=== PATIENT | female | born 1945 | race African-American/Black ===

== ENCOUNTER 2018-05-04 16:25 | Inpatient (IN) | payer OTHER ==
--- NOTE | 2018-05-04 16:50 | PDOC ---
History of Present Illness - General Stated Complaint: TWITCHING - History of Present Illness Initial Comments: 05/04/18 17:05 The patient is a 72 year old female with a history of MS and CVA with left sided residual deficits who presents for evaluation of twitching. The patient is accompanied by her family who assist in providing the history. They report a 1-2 day history of right body twitching prompting the patient's presentation to the ED for further evaluation. They note that the patient has been alert and interactive all throughout the twitching, but it has been persistent and the patient has not had similar symptoms in the past. The patient otherwise denies fevers, chills, SOB, chest pain, nausea, vomiting, abdominal pain, numbness, tingling, new weakness, or changes with urination or bowel movements. Past History - Past Medical History Allergies/Adverse Reactions: Allergies Allergy/AdvReac Type Severity Reaction Status Date / Time No Known Allergies Allergy Verified 05/04/18 16:40 Home Medications: Ambulatory Orders Amoxicillin/Potassium Clav [Augmentin 875-125 Tablet] 1 each PO Q12H #8 tablet 06/27/15 Bisacodyl [Dulcolax] 10 mg RC DAILY PRN #20 supp.rect 06/27/15 Miscellaneous Medical Supply [Outpatient Order] 1 each ASDIR #1 misc Na Phos,M-B/Na Phos,Di-Ba [Fleet Enema] 118 ml RC Q2D PRN #10 enema 06/27/15 Sennosides/Docusate Sodium [Cvs Senna Plus Tablet] 1 each PO BID #30 tablet 09/07 CVA: Yes COPD: No Other medical history: MULTIPLE SCLEROSIS - Suicide/Smoking/Psychosocial Hx Smoking History: Unknown if ever smoked Hx Alcohol Use: No Drug/Substance Use Hx: No Review of Systems - Review of Systems Comments:: 05/04/18 17:10 Constitutional: Twitching. No fevers, chills, fatigue, malaise HEENT: No Rhinorrhea, nasal congestion, visual changes Cardiovascular: No chest pain, syncope, palpitations, lightheadedness Respiratory: No Cough, SOB, Hemoptysis, Gastrointestinal: No Abdominal pain, Nausea, Vomiting, Constipation, Diarrhea, Melena Genitourinary: No Dysuria, Frequency, Urgency, Hesitancy, Hematuria, Flank pain Musculoskeletal: No Myalgia, arthralgia Skin: No rashes, itching, bruising, pallor Neurologic: No Headache, Dizziness, Numbness, Weakness, or Tingling Psychiatric: No Hallucinations. No SI or HI *Physical Exam - Vital Signs Last Vital Signs Temp Pulse Resp BP Pulse Ox 98.5 F 83 18 130/87 96 05/04/18 16:38 05/04/18 16:38 05/04/18 16:38 05/04/18 16:38 05/04/18 16:38 - Physical Exam Comments: 05/04/18 17:10 General Appearance: Nourished. Diffuse muscular spasms noted worse on the right side. No Apparent Distress HEENT: EOMI, ROYA. No Pharyngeal Erythema, Tonsillar Exudate, Tonsillar Erythema Neck: No Cervical Lymphadenopathy Respiratory/Chest: Lungs Clear, Normal Breath Sounds. No Crackles, Rales, Rhonchi, Wheezing Cardiovascular: Regular Rhythm, Regular Rate. No Murmur, Gallops, Rubs Gastrointestinal/Abdominal: Normal Bowel Sounds, Soft. No Guarding, Rebound, Tenderness Musculoskeletal: No CVA Tenderness Extremity: Normal Capillary Refill Integumentary: Normal Color, Dry, Warm Neurologic: Fully Oriented, Alert, Normal Mood/Affect, Normal Response, Left sided contractions noted. No movement to the left side (baseline) ED Treatment Course - LABORATORY CBC & Chemistry Diagram: 05/04/18 17:10 05/04/18 17:10 Medical Decision Making - Medical Decision Making 05/04/18 17:11 The patient is a 72 year old female with a history of MS and CVA with left sided residual deficits who presents for evaluation of twitching. Differential includes but is not limited to: Neurologic, MS, Infectious, Metabolic Derangement. Given the patient's history and physical exam, we will obtain a cbc, cmp, ua, urine culture, chest plain film to evaluate further. We will continue to monitor and reassess while here in the ED. 05/04/18 21:03 CBC, cmp are unremarkable. UA demonstrates positive leuk esterase with elevated wbc to 2000s consistent with a UTI. Chest plain film is unremarkable. The patient's symptoms and altered behavior is likely due to urinary tract infection. We will treat the patient with ceftriaxone. The patient has no primary care provider or neurologist as they have both recently and has no reliable follow up. We believe she requires inpatient treatment at this time. *DC/Admit/Observation/Transfer Diagnosis at time of Disposition: UTI (urinary tract infection) Qualifiers: Urinary tract infection type: site unspecified Hematuria presence: without hematuria Qualified Code(s): N39.0 - Urinary tract infection, site not specified - Discharge Dispostion Condition at time of disposition: Stable Decision to Admit order: Yes - Referrals - Patient Instructions - Post Discharge Activity
--- NOTE | 2018-05-04 16:55 | PDOC ---
Attending Attestation - Resident Resident Name: Franky Graf - ED Attending Attestation I have performed the following: I have examined & evaluated the patient, The case was reviewed & discussed with the resident, I agree w/resident's findings & plan, Exceptions are as noted - HPI HPI: 05/04/18 16:52 72y F hx of MS, CVA with residual L sided weakness, presenst with increased twitching/spasm on the R side of her body over the past day. No headache, LOC/ postictal period. Denies fever/chills, pain, dysuria, cough, abd pain, cp, tingling/weakness, vision changes. Pt is incontinent at baseline. Daughter notes the pt sometimes has spasms, but never this bad. exam: Ext: contracted LUE, intermitetent spasms of RUE and R foot, sensation intact card: rrr pulm cta b/l general: no acute distress will obtain blood work to ro metabolic derangement ua t or/o UTI rashel lobtain ct head ?ms flare? will dw neuro - Physicial Exam PE: 05/09/18 17:37 see above - Medical Decision Making pt signed out to evening team to reeal and dispo pending neuro eval/consult
[2018-05-04 17:16] LABS: BASO % 0.6 % (0-2.0); EOS % 0.9 % (0-4.5); HEMATOCRIT 36.9 % (32.4-45.2); HEMOGLOBIN 12.2 GM/dL (10.7-15.3); LYMPH % 20.1 % (8-40); MCH 27.2 pg (25.7-33.7); MEAN CELL VOLUME 82.6 fl (80-96); MEAN PLT VOLUME 7.8 fl (7.5-11.1); MONO % 11.6 % (3.8-10.2); NEUT % 66.8 % (42.8-82.8); PLATELET COUNT 359 K/MM3 (134-434); RBC 4.47 M/mm3 (3.60-5.2); RDW 15.3 % (11.6-15.6); WHITE BLOOD COUNT 6.9 K/mm3 (4.0-10.0)
[2018-05-04 17:45] LABS: ALBUMIN 3.1 g/dl (3.4-5.0); ALK PHOS 80 U/L (45-117); ANION GAP 11 MMOL/L (8-16); BILIRUBIN,TOTAL 0.4 mg/dL (0.2-1); BLOOD UREA NITROGEN 27 mg/dL (7-18); CALCIUM 9.3 mg/dL (8.5-10.1); CHLORIDE 109 mmol/L (98-107); CO2 24 mmol/L (21-32); GLUCOSE,RANDOM 94 mg/dL (74-106); POTASSIUM 3.9 mmol/L (3.5-5.1); SGOT/AST 25 U/L (15-37); SGPT/ALT 16 U/L (13-61); SODIUM 144 mmol/L (136-145); TOT PROT 8.2 g/dl (6.4-8.2)
[2018-05-04 20:07] LABS: URINE APPEARANCE TURBID; URINE BILIRUBIN NEGATIVE (<2.0 mg/dL); URINE COLOR YELLOW; URINE GLUCOSE (UA) NEGATIVE (NEGATIVE); URINE KETONE TRACE (NEGATIVE); URINE LEUK ESTERASE 3+ (NEGATIVE); URINE NITRITE NEGATIVE (NEGATIVE); URINE PROTEIN 2+ (NEGATIVE); URINE UROBILINOGEN NEGATIVE mg/dL (0.2-1.0)
[2018-05-04 20:20] LABS: EPI CELLS FEW /HPF (FEW); URINE BACTERIA RARE /hpf (NONE SEEN); URINE HYALINE CAST 19 /lpf
[2018-05-04] MEDS ORDERED: CEFTRIAXONE 1 GM in DEXTROSE 5%-WATER - 100 ML IVPB ONE (20:30)
--- NOTE | 2018-05-04 21:28 | PN ---
Teaching Attending Note Name of Resident: Dre Hayes ATTENDING PHYSICIAN STATEMENT I saw and evaluated the patient. I reviewed the resident's note and discussed the case with the resident. I agree with the resident's findings and plan as documented. 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 Family reports a 1-2 day history of right body twitching. They note that the patient has been alert and interactive all throughout the twitching, but it has been persistent and the patient has not had similar symptoms in the past. The patient otherwise denies fevers, chills, SOB, chest pain, nausea, vomiting, abdominal pain, numbness, tingling, new weakness, or changes with urination or bowel movements. OBJECTIVE: Alert Vital Signs Period Temp Pulse Resp BP Sys/Varner Pulse Ox Last 24 Hr 98.5 F 83 18 130/87 96 HEENT: No Jaundice, eye redness or discharge, PERRLA, EOMI. Normocephalic, atraumatic. External ears are normal and hearing is grossly intact. No nasal discharge. Neck: Supple, nontender. No palpable adenopathy or thyromegaly. No JVD Chest: Good effort. Clear to auscultation and percussion. Heart: Regular. No S3, rub or murmur Abdomen: Not distended, soft, nontender and no HSM. No rebound or guarding. Normoactive bowel sounds. Ext: Peripheral pulses intact. No leg edema. Skin: Warm and dry. No petechiae, rash or ecchymosis. Neuro: Alert. Oriented x3. CN 2-12 grossly intact. Sensation grossly intact in all four extremities; right side twitching; left hemiparesis, contracted LUE. Home Medications Medication Instructions Recorded Amoxicillin/Potassium Clav 1 each PO Q12H #8 tablet 06/27/15 [Augmentin 875-125 Tablet] Bisacodyl [Dulcolax] 10 mg RC DAILY PRN #20 supp.rect 06/27/15 Miscellaneous Medical Supply 1 each ASDIR #1 misc 06/27/15 [Outpatient Order] Na Phos,M-B/Na Phos,Di-Ba [Fleet 118 ml RC Q2D PRN #10 enema 06/27/15 Enema] Sennosides/Docusate Sodium [Cvs 1 each PO BID #30 tablet 06/27/15 Senna Plus Tablet] Abnormal Lab Results 05/04/18 05/04/18 05/04/18 17:10 17:10 19:58 Monocytes % 11.6 H Chloride 109 H BUN 27 H Albumin 3.1 L Urine Protein 2+ H Urine Ketones Trace H Urine Blood 2+ H Ur Leukocyte Esterase 3+ H ASSESSMENT AND PLAN: 1. UTI/Toxic encephalopathy/Twitching - Right side twitching may signal MS flare up, effect of her old CVA, UTI or be due to electrolyte abnormality. Head CT does not show any acute pathology. Check phosphate and Mg levels. Will continue UTI treatment with Rocephin 1 gm daily. Consult neurology to advice on whether to initiate MS treatment or use agents such as clonazepam/baclofen to control twitching. 2. DVT prophylaxis - Lovenox 40 mg SQ q 24 hours. 3. Advance directives - Full code
[2018-05-04] MEDS ORDERED: CEFTRIAXONE 1 GM/50 ML BAG ONE (21:54)
--- NOTE | 2018-05-04 22:50 | HP ---
CHIEF COMPLAINT: Right side body twitching-involuntary PCP: None HISTORY OF PRESENT ILLNESS: Pt is a pleasant 72 y/o f with a significant past medical history of multiple sclerosis (diagnosed at 20 years of age), CVA (2013), R kidney nephrectomy who presented to [facility] ED this afternoon via ambulance due to involuntary jerking movements of her right arm and leg. Pt and daughter endorse that this has been occurring since this past and do not endorse any precipitating factors. Daughter states that pt has never had these jerking movements before. Pt normally uses a wheelchair to ambulate and has residual left sided weakness from her CVA in 2013. Furthermore, pt endorses she is incontinent of urine and uses an adult diaper. Denies chest pain, shortness of breath, lightheadedness, fever, chills, or LOC. Daughter endorses that her mother's urine has been recently cloudy in appearance. Pt denies dysuria or frequency. ER course was notable for: (1) Leuk Esterase 3+ (2) 1 gm ceftriaxone given (3) Urine/Blood Cultures pending. Recent Travel: denies PAST MEDICAL HISTORY: Multiple Sclerosis, CVA, R Nephrectomy PAST SURGICAL HISTORY: Hysterectomy, R Nephrectomy Social History: Smoking: denies Alcohol: Denies Drugs: Denies Family History: Allergies none No Known Allergies Allergy (Verified 05/04/18 16:40) HOME MEDICATIONS: Pt's daughter denies that pt takes any medications. REVIEW OF SYSTEMS CONSTITUTIONAL: Absent: fever, chills, diaphoresis, generalized weakness, malaise, loss of appetite, weight change HEENT: Absent: rhinorrhea, nasal congestion, throat pain, throat swelling, difficulty swallowing, mouth swelling, ear pain, eye pain, visual changes CARDIOVASCULAR: Absent: chest pain, syncope, palpitations, irregular heart rate, lightheadedness , peripheral edema RESPIRATORY: Absent: cough, shortness of breath, dyspnea with exertion, orthopnea, wheezing, stridor, hemoptysis GASTROINTESTINAL: Absent: abdominal pain, abdominal distension, nausea, vomiting, diarrhea, constipation, melena, hematochezia GENITOURINARY: Absent: dysuria, frequency, urgency, hesitancy, hematuria, flank pain, genital pain MUSCULOSKELETAL: Absent: myalgia, arthralgia, joint swelling, back pain, neck pain SKIN: Absent: rash, itching, pallor HEMATOLOGIC/IMMUNOLOGIC: Absent: easy bleeding, easy bruising, lymphadenopathy, frequent infections ENDOCRINE: Absent: unexplained weight gain, unexplained weight loss, heat intolerance, cold intolerance NEUROLOGIC: PRESENT: focal weakness, unsteady gait, bladder PSYCHIATRIC: Absent: anxiety, depression, suicidal or homicidal ideation, hallucinations. PHYSICAL EXAMINATION Vital Signs - 24 hr 05/04/18 16:38 Temperature 98.5 F Pulse Rate 83 Respiratory 18 Rate Blood Pressure 130/87 O2 Sat by Pulse 96 Oximetry (%) GENERAL: Awake Alert NAD, pleasant HEAD: NC/AT EYES:Pinpoint pupils NOT reactive to light or accommodation. EARS, NOSE, THROAT: Missing teeth, MMM LUNGS: Decreased Breath Sounds HEART: Distant heart sounds ABDOMEN: NDNT No HSM . UPPER EXTREMITIES: Left arm contracture, jerky movements right arm. LOWER EXTREMITIES: Right leg jerky movements, lower extremities muscle atrophy, cant lift R leg off of bed-strength 1/5 b/l lower extremities. Possible Babinski on left foot? NEUROLOGICAL: Decreased vision, h/o MS, sensation intact throughout, able to squeeze hand with her right hand, left hand unable. PSYCHIATRIC: Cooperative. Good eye contact. Appropriate mood and affect. SKIN: Warm, dry, normal turgor, no rashes or lesions noted, normal capillary refill. Laboratory Results - last 24 hr 05/04/18 05/04/18 05/04/18 17:10 17:10 19:58 WBC 6.9 RBC 4.47 Hgb 12.2 Hct 36.9 D MCV 82.6 MCH 27.2 MCHC 33.0 RDW 15.3 Plt Count 359 D MPV 7.8 Absolute Neuts (auto) 4.6 Neutrophils % 66.8 Lymphocytes % 20.1 D Monocytes % 11.6 H Eosinophils % 0.9 Basophils % 0.6 D Nucleated RBC % 0 Sodium 144 Potassium 3.9 Chloride 109 H Carbon Dioxide 24 Anion Gap 11 BUN 27 H Creatinine 1.0 Creat Clearance w eGFR 54.81 Random Glucose 94 Lactic Acid Calcium 9.3 Total Bilirubin 0.4 AST 25 ALT 16 Alkaline Phosphatase 80 Total Protein 8.2 Albumin 3.1 L Urine Color Yellow Urine Appearance Turbid Urine pH 5.0 Ur Specific [place] 1.019 Urine Protein 2+ H Urine Glucose (UA) Negative Urine Ketones Trace H Urine Blood 2+ H Urine Nitrite Negative Urine Bilirubin Negative Urine Urobilinogen Negative Ur Leukocyte Esterase 3+ H Urine WBC (Auto) 2170 Urine RBC (Auto) 78 Ur Epithelial Cells Few Urine Bacteria Rare Hyaline Casts 19 05/04/18 21:38 WBC RBC Hgb Hct MCV MCH MCHC RDW Plt Count MPV Absolute Neuts (auto) Neutrophils % Lymphocytes % Monocytes % Eosinophils % Basophils % Nucleated RBC % Sodium Potassium Chloride Carbon Dioxide Anion Gap BUN Creatinine Creat Clearance w eGFR Random Glucose Lactic Acid 1.2 Calcium Total Bilirubin AST ALT Alkaline Phosphatase Total Protein Albumin Urine Color Urine Appearance Urine pH Ur Specific [place] Urine Protein Urine Glucose (UA) Urine Ketones Urine Blood Urine Nitrite Urine Bilirubin Urine Urobilinogen Ur Leukocyte Esterase Urine WBC (Auto) Urine RBC (Auto) Ur Epithelial Cells Urine Bacteria Hyaline Casts ASSESSMENT/PLAN: Pt is a pleasant 72 y/o f with a significant past medical history of multiple sclerosis (diagnosed at 20 years of age), CVA (2013), R kidney nephrectomy who presented to [facility] ED this afternoon via ambulance due to involuntary jerking movements of her right arm and leg. # Right side body twitching 2/2 Multiple Sclerosis flare up? -Neurology consulted -Consider Klonopin or tegretol for myoclonus -Head CT--> pending results -Consider MRI Pablo for further assessment # UTI -Leukocyte Esterase 3+ - Urine WBC 2170 - 1 gm Ceftriaxone in ED -Continue Ceftriaxone #FEN D5 1/2 NS@42cc/hr Monitor electrolytes NPO #DVT ppx: Heparin SQ TID #Dispo: OBS Visit type - Emergency Visit Emergency Visit: Yes ED Registration Date: 05/04/18 Care time: The patient presented to the Emergency Department on the above date and was hospitalized for further evaluation of their emergent condition. - New Patient This patient is new to me today: Yes Date on this admission: 05/05/18 - Critical Care Critical Care patient: No
[2018-05-05] MEDS: DEXTROSE 5%-0.45% SALINE 1,000 ML IV SCH (02:07)
[2018-05-05] MEDS: HEPARIN NA (PORCINE) 5,000 UNITS/ML 1ML VIAL SQ SCH ×3 (05:57→21:15)
[2018-05-05 07:13] LABS: HEMATOCRIT 36.8 % (32.4-45.2); HEMOGLOBIN 11.8 GM/dL (10.7-15.3); MCH 26.6 pg (25.7-33.7); MCHC 32.1 g/dl (32.0-36.0); MEAN CELL VOLUME 82.6 fl (80-96); MEAN PLT VOLUME 7.8 fl (7.5-11.1); PLATELET COUNT 311 K/MM3 (134-434); RBC 4.45 M/mm3 (3.60-5.2); RDW 15.1 % (11.6-15.6); WHITE BLOOD COUNT 6.5 K/mm3 (4.0-10.0)
[2018-05-05 07:28] LABS: INR 1.03 (0.83-1.09); PROTHROMBIN TIME (PATIENT) 12.1 SEC (9.7-13.0)
[2018-05-05 07:31] LABS: ACTIVATED PTT 29.5 SECONDS (25.2-36.5)
[2018-05-05 07:41] LABS: ANION GAP 8 MMOL/L (8-16); BLOOD UREA NITROGEN 27 mg/dL (7-18); CALCIUM 9.3 mg/dL (8.5-10.1); CHLORIDE 108 mmol/L (98-107); CO2 27 mmol/L (21-32); GLUCOSE,RANDOM 109 mg/dL (74-106); MAGNESIUM 2.2 mg/dL (1.8-2.4); PHOSPHOROUS 3.5 mg/dL (2.5-4.9); POTASSIUM 3.9 mmol/L (3.5-5.1); SODIUM 142 mmol/L (136-145)
--- NOTE | 2018-05-05 11:11 | PN ---
Progress Note (short form) - Note Progress Note: Subjective: patient is doing well she stated that she came her because of her increased involuntary movements Obejective: cachectic temporal wasting laying in bed s1 and S2 rrr dry mucosa dry skin lungs CTA abdomen soft non-tender no edema involuntary movements of the ext ASSESSMENT/PLAN: Pt is a pleasant 72 y/o f with a significant past medical history of multiple sclerosis (diagnosed at 20 years of age), CVA (2013), R kidney nephrectomy who presented to [facility] ED this afternoon via ambulance due to involuntary jerking movements of her right arm and leg. # Right side body twitching 2/2 Multiple Sclerosis flare up? -Neurology consulted - clonazepam or tegretol for myoclonus -Consider MRI Pablo for further assessment # UTI -Leukocyte Esterase 3+ - Urine WBC 2170 -Continue Ceftriaxone #FEN D5 1/2 NS@42cc/hr Monitor electrolytes NPO #DVT ppx: Heparin SQ TID #Dispo: OBS
--- NOTE | 2018-05-05 15:22 | CON.NEURO ---
Consult Consult Specialty:: [place] Referred by:: Resident Reason for Consultation:: Twitching - History of Present Illness History of Present Illness: 72 years old woman with PMH CDA OA MS CVA Left hemiparesis with contracture presented with right arm and leg twitching I saw domenico patient on the floor When I waled to eth room with the rN patent had a gaze deviation with no response to verbal stimuli Stopped abruptly and patients stated twitching allover No recent fall [facility] teher is no family hsitory of sz patient was not on benzo or AED Patient is not on immunmodulator for MS Patient came [place] nd started answering questions - History Source History Provided By: Family Member, Medical Record Limitations to Obtaining History: Clinical Condition - Past Medical History NOTE TELLER: Yes: CVA, Multiple Sclerosis - Past Surgical History Past Surgical History: Yes: Nephrectomy (right) - Alcohol/Substance Use Hx Alcohol Use: No History of Substance Use: reports: None - Smoking History Smoking history: Unknown if ever smoked Have you smoked in the past 12 months: No - Social History ADL: Family Assistance Home Medications - Allergies Allergies/Adverse Reactions: Allergies Allergy/AdvReac Type Severity Reaction Status Date / Time No Known Allergies Allergy Verified 05/04/18 16:40 - Home Medications Home Medications: Ambulatory Orders Amoxicillin/Potassium Clav [Augmentin 875-125 Tablet] 1 each PO Q12H #8 tablet 06/27/15 Bisacodyl [Dulcolax] 10 mg RC DAILY PRN #20 supp.rect 06/27/15 Miscellaneous Medical Supply [Outpatient Order] 1 each ASDIR #1 misc Na Phos,M-B/Na Phos,Di-Ba [Fleet Enema] 118 ml RC Q2D PRN #10 enema 06/27/15 Sennosides/Docusate Sodium [Cvs Senna Plus Tablet] 1 each PO BID #30 tablet 09/07 Family Disease History - Family Disease History Family History: Unable to Obtain Review of Systems - Review of Systems Constitutional: reports: No Symptoms Eyes: reports: No Symptoms Neurological: reports: Incoordination, Numbness, Parasthesia Physical Exam-Neuro Vital Signs: Vital Signs Temperature 98.4 F 05/05/18 14:10 Pulse Rate 77 05/05/18 14:10 Respiratory Rate 20 05/05/18 14:10 Blood Pressure 110/71 05/05/18 14:10 O2 Sat by Pulse Oximetry (%) 95 05/05/18 01:30 Constitutional: Yes: Well Nourished Neck: Yes: WNL Cardiovascular: Yes: WNL Labs: CBC, BMP 05/05/18 06:00 05/05/18 06:00 INR, PTT INR 1.03 (0.83-1.09) 05/05/18 06:00 - Neuro Exam Level Of Consciousness: Yes: Oriented to Person, Oriented to Place Eyes: Yes: PERRLA Speech: WNL Dominant Hand: Right Cranial Nerves II-XII Intact: Yes Gag: Present DTR's: 1+ Left Bicep, 1+ Right Bicep, 3+ Left Brachioradialis, 3+ Right Brachioradialis Response to light touch: Abnormal Response to pain prick: Abnormal Response to temperature: Abnormal Motor Strength: 0/5: Left Arm, Left Leg, 3/5: Right Arm, Right Leg Gait: Deferred Imaging - Results Cat Scan: Image Reviewed Problem List - Problems (1) Twitching Assessment/Plan: patient has two abnormal movement The one with right side arm and leg and gaze deviated are focal complex seizure The whole body shaking are myoclonus and not seizure Neurological DDx 1. Complex Partial Seizure 2. Myoclonus 3. Multiple sclerosis 4. Stroke Plan: 1. Neuro checks q1 2. Transfer to MICU for observation 3. MRI of the brain with and without Jay 4. EEG 5. Stat prolactin level 6. Klonopin for the myoclonus 0.25 mg q12 7. sz precautions 8. Ativan IVP prn sz focal Thanks case discussed with Abby daughter and the RN on the floor Code(s): R25.3 - FASCICULATION
[2018-05-05] MEDS ORDERED: LORazepam 2 MG/ML SDV VIAL IVPB ONE (18:35)
[2018-05-05] MEDS ORDERED: clonazePAM 0.5 MG TABLET PO PRN (18:48)
--- NOTE | 2018-05-05 18:51 | EKG ---
Test Reason : Blood Pressure : / mmHG Vent. Rate : 079 BPM Atrial Rate : 079 BPM P-R Int : 128 ms QRS Dur : 082 ms QT Int : 382 ms P-R-T Axes : 062 269 056 degrees QTc Int : 438 ms NORMAL SINUS RHYTHM RIGHT VENTRICULAR HYPERTROPHY ABNORMAL ECG WHEN COMPARED WITH ECG OF 22-JUN-2015 20:42, VENT. RATE HAS DECREASED Confirmed by RICKY CRAIG MD ([id number]) on 05/05/2018 6:50:55 PM Referred By: Confirmed By:RICKY CRAIG MD
--- NOTE | 2018-05-05 22:55 | HOSP ---
Subjective - Review of Symptoms Events since last encounter: Per Nurse patient had seizure like activity with Neurologist Dr. Hough present. He wants patient to be transferred to ICU for further monitoring. No ICU beds available, nurse discussed with nursing line supervisor that the patient could be moved to tele. Order placed for patient to be transfered to tele. Physical Examination Vital Signs: Vital Signs Temperature 99.4 F 05/05/18 20:01 Pulse Rate 97 H 05/05/18 20:01 Respiratory Rate 20 05/05/18 22:21 Blood Pressure 120/51 L 05/05/18 20:01 O2 Sat by Pulse Oximetry (%) 96 05/05/18 22:21 Labs: CBC, BMP 05/05/18 06:00 05/05/18 06:00 Visit type - Emergency Visit Emergency Visit: No - New Patient This patient is new to me today: Yes Date on this admission: 05/06/18 - Critical Care Critical Care patient: No
--- NOTE | 2018-05-06 00:16 | PN ---
Progress Note (short form) - Note Progress Note: Called to evaluate patient for ICU admission Briefly, patient is a 72 year old female with a PMHx of MS (Dx at age 20), CVA, Right nephrectomy who was BIBEMS due to involuntary jerking movements of the right UE. Patient was found to have UTI and possible MS flare up. However, patient is currently on no Benzo's, AED's, or immunomodulators for MS. This evening, around 1800, patient had increased right arm and leg body twitching and no response to verbal stimuli. Patient abruptly stopped and started having full body twitching. Patient was given 1mg of Ativan. Neurologist, Dr. Hough , witnessed this and reports likely had focal complex seizure and myoclonus. Dr. Hough recommended neuro checks Q1H and possible transfer to ICU I went to evaluate patient around 2300 and patient was resting comfortably in bed, saturating 95-95% on room air. Patient responded to verbal and painful stimuli. RN reports that patient had no further episodes of seizures since the first one. PHYSICAL EXAM: GENERAL: Frail, cachectic, Sleeping, in no acute distress. Responds to painful and verbal stimuli HEAD: Temporal wasting EYES: Pinpoint pupils LUNGS: Decreased Breath Sounds HEART: RRR, normal S1 and S2 ABDOMEN: Soft, nontender, nondistended, normoactive bowel sounds LOWER EXTREMITIES: No peripheral edema. (-) twitching NEUROLOGICAL: Patient responds to painful and verbal stimuli. Opens eyes when asked. Sensory intact, squeezes fingers when asked. SKIN: Warm, dry, normal turgor, no rashes or lesions noted, normal capillary refill. VITALS: BP: 120/60 HR: 95BPM TEMP: 99.4 RR: 96% RA RECOMMENDATIONS: Does not meet criteria for ICU admission as patient is not actively seizing and has had only one seizure episode. Patient was responding to verbal and painful stimuli. She was saturating well on room air and in no acute distress. Spoke to Neurologist and discussed the case. He would like some monitoring and requested for patient to go to Tele. I informed the composition instructor floor residents. Patient will be transferred to tele for frequent neurochecks and 02/cardiac monitoring, as per primary team and neurologist. If patient goes into status epilepticus or continues to have seizures, she may be transferred to ICU Continue Ativan PRN Continue Klonopin, as per neurologist Will need EEG and MRI Continue seizure precautions and Neurochecks in telemetry Carmen Torres [id number]
[2018-05-06] MEDS: DEXTROSE 5%-0.45% SALINE 1,000 ML IV SCH ×2 (00:30→16:44)
[2018-05-06] MEDS: HEPARIN NA (PORCINE) 5,000 UNITS/ML 1ML VIAL SQ SCH ×3 (06:14→22:33)
[2018-05-06 08:27] LABS: BASO % 0.5 % (0-2.0); EOS % 1.6 % (0-4.5); HEMOGLOBIN 11.1 GM/dL (10.7-15.3); LYMPH % 31.6 % (8-40); MCH 25.9 pg (25.7-33.7); MCHC 30.9 g/dl (32.0-36.0); MEAN PLT VOLUME 7.9 fl (7.5-11.1); MONO % 14.8 % (3.8-10.2); NEUT % 51.5 % (42.8-82.8); PLATELET COUNT 287 K/MM3 (134-434); RBC 4.28 M/mm3 (3.60-5.2); RDW 15.5 % (11.6-15.6); WHITE BLOOD COUNT 4.9 K/mm3 (4.0-10.0)
[2018-05-06] MEDS ORDERED: LORazepam 2 MG/ML SDV VIAL IVPUSH ONE (08:45)
[2018-05-06 09:19] LABS: ALBUMIN 2.6 g/dl (3.4-5.0); ALK PHOS 69 U/L (45-117); ANION GAP 8 MMOL/L (8-16); BILIRUBIN,TOTAL 0.3 mg/dL (0.2-1); BLOOD UREA NITROGEN 24 mg/dL (7-18); CALCIUM 8.6 mg/dL (8.5-10.1); CHLORIDE 114 mmol/L (98-107); CO2 24 mmol/L (21-32); CREATININE 0.9 mg/dL (0.55-1.3); GLUCOSE,RANDOM 109 mg/dL (74-106); POTASSIUM 3.7 mmol/L (3.5-5.1); SGOT/AST 26 U/L (15-37); SGPT/ALT 15 U/L (13-61); SODIUM 146 mmol/L (136-145); TOT PROT 7.1 g/dl (6.4-8.2)
[2018-05-06] MEDS ORDERED: DEXTROSE 5%-WATER - 50 ML IVPB ONE (09:23)
[2018-05-06] MEDS ORDERED: cefTRIAXone SODIUM 1 GM VIAL ONE (09:23)
[2018-05-06] MEDS: CEFTRIAXONE 1 GM in DEXTROSE 5%-WATER - 50 ML IVPB SCH (09:28)
--- NOTE | 2018-05-06 09:32 | PN ---
Physical Exam: SUBJECTIVE: Patient seen and examined at bedside. Resting in bed,. Had episode of seizure like activity yesterday evening. Seen by neurology. Pt to be transferred to tele. OBJECTIVE: Vital Signs Period Temp Pulse Resp BP Sys/Varner Pulse Ox Last 24 Hr 97.8 F-99.4 F 65-97 20-20 105-128/51-71 96 GENERAL: Resting in bed, arousable to verbal stimuli. HEAD: Temporal wasting, cachexia EYES: pupils not reactive to light. Impaired vision ENT: missing teeth LUNGS: CTA B/l HEART: Distant heart sounds ABDOMEN: NTND No HSM EXTREMITIES: Left arm contracture, muscle atrophy all 4 extremities. NEUROLOGICAL: Responds to physical and verbal stimuli. Sensation intact throughout. Strength decreased PSYCH: Normal mood, normal affect. SKIN: Warm, dry, normal turgor, no rashes or lesions noted Laboratory Results - last 24 hr 05/05/18 05/05/18 05/06/18 19:00 19:00 07:45 WBC 4.9 RBC 4.28 Hgb 11.1 Hct 36.0 MCV 84.0 MCH 25.9 MCHC 30.9 L RDW 15.5 Plt Count 287 MPV 7.9 Absolute Neuts (auto) 2.5 Neutrophils % 51.5 D Lymphocytes % 31.6 D Monocytes % 14.8 H Eosinophils % 1.6 Basophils % 0.5 Nucleated RBC % 0 Sodium Potassium Chloride Carbon Dioxide Anion Gap BUN Creatinine Creat Clearance w eGFR Random Glucose Calcium Total Bilirubin GGT 25 AST ALT Alkaline Phosphatase Ammonia 16.00 C-Reactive Protein 1.3 H Total Protein Albumin Vitamin B12 1776 H 05/06/18 07:45 WBC RBC Hgb Hct MCV MCH MCHC RDW Plt Count MPV Absolute Neuts (auto) Neutrophils % Lymphocytes % Monocytes % Eosinophils % Basophils % Nucleated RBC % Sodium 146 H Potassium 3.7 Chloride 114 H Carbon Dioxide 24 Anion Gap 8 BUN 24 H Creatinine 0.9 Creat Clearance w eGFR > 60 Random Glucose 109 H Calcium 8.6 Total Bilirubin 0.3 GGT AST 26 ALT 15 Alkaline Phosphatase 69 Ammonia C-Reactive Protein Total Protein 7.1 Albumin 2.6 L Vitamin B12 Active Medications Generic Name Dose Route Start Last Admin Trade Name Freq PRN Reason Stop Dose Admin Clonazepam 0.25 mg 05/05/18 18:48 Klonopin - PO BID PRN MUSCLE SPASMS Heparin Sodium (Porcine) 5,000 unit 11/11/18 06:00 05/06/18 06:14 Heparin - SQ 5,000 unit TID KRYSTEN Administration Dextrose/Sodium Chloride 1,000 mls @ 42 mls/hr 05/05/18 01:45 05/06/18 00:30 D5-1/2ns - IV 42 mls/hr ASDIR KRYSTEN Administration Ceftriaxone Sodium 1 gm/ 50 mls @ 100 mls/hr 05/06/18 10:00 05/06/18 09:28 Dextrose IVPB 100 mls/hr DAILY KRYSTEN Administration Protocol CT/HEAD CT WITHOUT CONTRAST CT scan of the brain c-. Twitching r/o intracranial process Findings. Serial axial images of the brain were obtained from foramen magnum to the cranial vertex without intravenous contrast. The study was supplemented with computer-generated coronal and sagittal reconstruction images. The head was tilted during the acquisition of images There is no evidence of acute subarachnoid hemorrhage, acute intra-axial or extra-axial fluid collection consistent with subdural or epidural hematoma. No mass effect, midline shift, acute territorial ischemic changes, herniation or edema is present. Normal suarez matter white matter differentiation. Loss of volume of the brain parenchyma with involutional changes is noted. Moderate diffuse supratentorial white matter microangiopathic ischemic changes, gliosis. MRI is most sensitive for evaluation of acute stroke. Examination of the bone windows show no fracture. The visualized paranasal sinuses and mastoid air cells are clear. Symmetrical ocular globes. Unremarkable retro-orbital soft tissues. Impression. No evidence of acute intracranial hemorrhage, edema, midline shift, mass effect, or skull fracture. No CT evidence of acute territorial ischemic changes. Moderate diffuse supratentorial chronic white matter microangiopathic ischemic changes, gliosis. Reported By: Kem Schroeder MD 05/06/18 [id number] ASSESSMENT/PLAN: Pt is a pleasant 72 y/o f with a significant past medical history of multiple sclerosis (diagnosed at 20 years of age), CVA (2013), R kidney nephrectomy who presented to [facility] ED this afternoon via ambulance due to involuntary jerking movements of her right arm and leg. # Right side body twitching 2/2 Myoclonus and Complex partial seizure -Neurology on board -Klonapin .25 mg po bid -Head CT--> No acute ischemic changes, no evidence of acute intracranial hemorrhage. Moderate diffuse supratentorial chronic white matter microangiopathic ischemic changes, gliosis -MRI Brain with and without ABDIFATAH pending -Neuro checks Q1H -EEG -Prolactin level -Ativan IVP PRN # UTI -Leukocyte Esterase 3+ - Urine WBC 2170 - 1 gm Ceftriaxone in ED -Continue Ceftriaxone #FEN D5 06/26 NS@42cc/hr Monitor electrolytes Puree diet #DVT ppx: Heparin SQ TID #Dispo: Transfer to Tele Visit type - Emergency Visit Emergency Visit: Yes ED Registration Date: 05/04/18 Care time: The patient presented to the Emergency Department on the above date and was hospitalized for further evaluation of their emergent condition. - New Patient This patient is new to me today: No - Critical Care Critical Care patient: No
--- NOTE | 2018-05-06 14:09 | PN ---
Teaching Attending Note Name of Resident: Dre Hayes ATTENDING PHYSICIAN STATEMENT I saw and evaluated the patient. I reviewed the resident's note and discussed the case with the resident. I agree with the resident's findings and plan as documented. SUBJECTIVE:no complaints. denies CP, SOB, fever, chills, N/V/C/D OBJECTIVE: Last Vital Signs Temp Pulse Resp BP Pulse Ox 98.0 F 65 20 113/76 96 05/06/18 13:15 05/06/18 13:15 05/06/18 13:15 05/06/18 13:15 05/05/18 22:21 General lethargic, slow to respond, bitemporal wasting, prominent clavicles HEENT PERRL, EOMI CV S1 S2 RRR no murmur/rub/gallop Lungs CTA B/L no wheezing/rales/rhonchi Abdomen soft NT/ND scaffoid abdomen Extremities no pedal edema. Neuro unable to fully assess as pt does not follow all commands. moves all 4 extremities. answers some questions. no twitching noted, rigidity of LUE ASSESSMENT AND PLAN: 72 y/o F with a significant past medical history of multiple sclerosis ( diagnosed at 20 years of age), CVA (2013), R kidney nephrectomy who presented to [facility] ED this afternoon via ambulance due to involuntary jerking movements of her right arm and leg. 1. RUE/RLE twitching- complex partial seizure with myoclonus. witnessed by neurologist yesterday and ativan given. questionable this AM when patient was woken up she had some twitching of the RUE and ativan was given. pt is noted to be slow to respond, unclear what is patients baseline mental status. pt can be post-ictal as well as due to medication. no known hx of seizure. possible induced from infection. will treat infection. check Brain MRI, EEG, electrolytes , vitamin b12. neuro on board 2. UTI- On ceftriaxone. f/u Cx 3. Severe malnutrition- as evident by body habitus and BMI 15. dietary consult. pt is unable to assess if there is any recent weight loss 4. MS- outpatient neuro follow up 5. R kidney nephrectomy 6. DVT ppx- hep sq 7. will need to obtain collateral information from family and PMD as pt is a poor historian
--- NOTE | 2018-05-06 18:11 | PN ---
Progress Note, Physician History of Present Illness: seen on the floor Less responsive On tele No family garbled speech No more twitching Received Benzo - Current Medication List Current Medications: Active Medications Clonazepam (Klonopin -) 0.25 mg PO BID PRN PRN Reason: MUSCLE SPASMS Heparin Sodium (Porcine) (Heparin -) 5,000 unit SQ TID [facility] Last Admin: 05/06/18 13:38 Dose: 5,000 unit Dextrose/Sodium Chloride (D5-1/2ns -) 1,000 mls @ 42 mls/hr IV ASDIR KRYSTEN Last Admin: 05/06/18 16:44 Dose: 42 mls/hr Ceftriaxone Sodium 1 gm/ (Dextrose) 50 mls @ 100 mls/hr IVPB DAILY [facility]; Protocol Last Admin: 05/06/18 09:28 Dose: 100 mls/hr Levetiracetam (Keppra -) 250 mg PO BID KRYSTEN - Objective Vital Signs: Vital Signs Temperature 98 F 05/06/18 17:04 Pulse Rate 80 05/06/18 17:04 Respiratory Rate 18 05/06/18 17:04 Blood Pressure 106/60 05/06/18 17:04 O2 Sat by Pulse Oximetry (%) 95 05/06/18 14:00 Constitutional: Yes: Well Nourished Eyes: Yes: WNL Neurological: Yes: Alert, Oriented, Babinski positive ...Motor Strength: LUE (0), LLE (0) Labs: CBC, BMP 05/06/18 07:45 05/06/18 07:45 INR, PTT INR 1.03 (0.83-1.09) 05/05/18 06:00 Problem List - Problems (1) Twitching Assessment/Plan: Abnormal EEG Myoclonus 1. Neuro checks 2. Sz precautions 3. Keppra 250 mg po q12 4. Klonopin q12 Code(s): R25.3 - FASCICULATION
[2018-05-06] MEDS: levETIRAcetam 250 MG TABLET (FP) PO SCH (22:33)
[2018-05-07] MEDS: HEPARIN NA (PORCINE) 5,000 UNITS/ML 1ML VIAL SQ SCH ×3 (06:34→21:37)
[2018-05-07] MEDS ORDERED: cefTRIAXone SODIUM 1 GM VIAL ONE (09:22)
[2018-05-07] MEDS ORDERED: DEXTROSE 5%-WATER - 50 ML IVPB ONE (09:22)
[2018-05-07] MEDS: CEFTRIAXONE 1 GM in DEXTROSE 5%-WATER - 50 ML IVPB SCH (10:16)
[2018-05-07] MEDS: levETIRAcetam 250 MG TABLET (FP) PO SCH ×2 (10:16→21:38)
[2018-05-07] MEDS ORDERED: FLUCONAZOLE 150 MG TABLET PO ONE (11:18)
--- NOTE | 2018-05-07 11:18 | PN ---
Teaching Attending Note Name of Resident: Dre Hayes ATTENDING PHYSICIAN STATEMENT I saw and evaluated the patient. I reviewed the resident's note and discussed the case with the resident. I agree with the resident's findings and plan as documented. SUBJECTIVE:asymptomatic. states she feels better today. unsure why she is in the hospital but elicits likely due to something from her MS. states she has not been having any urinary symptoms lately. states she has always been thin and unable to specify recent weight loss. denies Cp, SOB, fever, chills, N/V/C/D , dysuria or urinary frequency. OBJECTIVE: Last Vital Signs Temp Pulse Resp BP Pulse Ox 98 F 76 18 99/66 98 05/07/18 09:00 05/07/18 09:00 05/07/18 09:00 05/07/18 09:00 05/07/18 05:48 General NAD A&O x2 (self and location) CV S1 S2 RRR no murmur/rub/gallop Lungs CTA B/L no wheezing/rales/rhonchi Abdomen soft NT/ND scaffoid abdomen Extremities no pedal edema. Neuro unable to fully assess as pt does not follow all commands. moves all 4 extremities. no twitching noted, rigidity of LUE ASSESSMENT AND PLAN: 72 y/o F with a significant past medical history of multiple sclerosis ( diagnosed at 20 years of age), CVA (2013), R kidney nephrectomy who presented to [facility] ED this afternoon via ambulance due to involuntary jerking movements of her right arm and leg. 1. RUE/RLE twitching- complex partial seizure with myoclonus. seizure like activity noted yesterday given ativan. EEG done and noted to be negative by neurology, started on keppra. no episodes since. Awaiting Brain MRI read. pt is more alert and responsive today. will await further recommendations per neuro. 2. UTI- +fungal infection. will d/c abx and give fluconazole 150mg po x1. 3. Severe malnutrition- as evident by body habitus and BMI 15. dietary consult. 4. CVA with L hemiparesis 5. MS- outpatient neuro follow up 6. R kidney nephrectomy 7. DVT ppx- hep sq 8. possible d/c later today pending neuro eval and MRI reading. Family wants to bring patient home. has aid. will set up for VNS and PT/OT
--- NOTE | 2018-05-07 11:51 | PN ---
Physical Exam: SUBJECTIVE: Patient seen and examined at bedside. Eating breakfast with aid. Denies any pain or shortness of breath. States she feels well. No acute events overnight. OBJECTIVE: Vital Signs Period Temp Pulse Resp BP Sys/Varner Pulse Ox Last 24 Hr 96.3 F-98.5 F 60-88 18-20 93-120/60-85 95-98 GENERAL: NAD Awake Alert Responsive, cachexia, frail HEAD: Temporal wasting EYES: Pinpoint pupils, impaired vision ENT: MMM, missing teeth LUNGS: CTA B/L Anteriorly HEART: RRR No MRG S1S2 ABDOMEN:NDNT No HSM EXTREMITIES: Muscle atrophy, wasting. Left arm contracture NEUROLOGICAL: Left side hemiparesis. strength 1/5 b/l lower extremities. Able to squeeze fingers with right hand. Myoclonus not present at time of exam. PSYCH: Normal mood, normal affect. SKIN: Warm, dry, normal turgor, no rashes or lesions noted Laboratory Results - last 24 hr 05/05/18 19:00 Prolactin 24.3 H Active Medications Generic Name Dose Route Start Last Admin Trade Name Freq PRN Reason Stop Dose Admin Clonazepam 0.25 mg 05/05/18 18:48 Klonopin - PO BID PRN MUSCLE SPASMS Fluconazole 150 mg 05/07/18 11:18 Fluconazole PO 05/07/18 11:19 ONCE ONE Heparin Sodium (Porcine) 5,000 unit 05/05/18 06:00 05/07/18 06:34 Heparin - SQ 5,000 unit TID KRYSTEN Administration Dextrose/Sodium Chloride 1,000 mls @ 42 mls/hr 05/05/18 01:45 05/06/18 16:44 D5-1/2ns - IV 42 mls/hr ASDIR KRYSTEN Administration Levetiracetam 250 mg 05/06/18 22:00 05/07/18 10:16 Keppra - PO 250 mg BID KRYSTEN Administration ASSESSMENT/PLAN: Pt is a pleasant 72 y/o f with a significant past medical history of multiple sclerosis (diagnosed at 20 years of age), CVA (2013), R kidney nephrectomy who presented to [facility] ED this afternoon via ambulance due to involuntary jerking movements of her right arm and leg. # Right side body twitching 2/2 Myoclonus and Complex partial seizure -Neurology on board -Dr [place] -Klonapin .25 mg po bid -Head CT--> No acute ischemic changes, no evidence of acute intracranial hemorrhage. Moderate diffuse supratentorial chronic white matter microangiopathic ischemic changes, gliosis -MRI Brain with and without ABDIFATAH pending -Neuro checks Q2H -EEG abnormal per Neurology. Pending official read -Keppra 250 mg po bid per neurology -Prolactin level 24.3- elevated -Ativan IVP PRN # UTI -Leukocyte Esterase 3+ - Urine WBC 2170 - 1 gm Ceftriaxone in ED -Ceftriaxone d/c'ed #FEN D5 1/2 NS@42cc/hr Monitor electrolytes Puree diet #DVT ppx: Heparin SQ TID #Dispo: Tele Visit type - Emergency Visit Emergency Visit: Yes ED Registration Date: 05/06/18 Care time: The patient presented to the Emergency Department on the above date and was hospitalized for further evaluation of their emergent condition. - New Patient This patient is new to me today: No - Critical Care Critical Care patient: No
[2018-05-07] MEDS: DEXTROSE 5%-0.45% SALINE 1,000 ML IV SCH (19:03)
[2018-05-08] MEDS: HEPARIN NA (PORCINE) 5,000 UNITS/ML 1ML VIAL SQ SCH ×3 (06:34→21:41)
[2018-05-08 07:18] LABS: HEMATOCRIT 31.2 % (32.4-45.2); HEMOGLOBIN 10.1 GM/dL (10.7-15.3); MCH 26.6 pg (25.7-33.7); MCHC 32.4 g/dl (32.0-36.0); MEAN CELL VOLUME 82.1 fl (80-96); PLATELET COUNT 280 K/MM3 (134-434); RBC 3.81 M/mm3 (3.60-5.2); WHITE BLOOD COUNT 4.9 K/mm3 (4.0-10.0)
[2018-05-08 09:01] LABS: ANION GAP 7 MMOL/L (8-16); BLOOD UREA NITROGEN 20 mg/dL (7-18); CALCIUM 8.7 mg/dL (8.5-10.1); CHLORIDE 108 mmol/L (98-107); CO2 26 mmol/L (21-32); CREATININE 0.8 mg/dL (0.55-1.3); GLUCOSE,RANDOM 109 mg/dL (74-106); MAGNESIUM 2.2 mg/dL (1.8-2.4); PHOSPHOROUS 2.9 mg/dL (2.5-4.9); POTASSIUM 3.8 mmol/L (3.5-5.1); SODIUM 141 mmol/L (136-145)
[2018-05-08] MEDS: levETIRAcetam 250 MG TABLET (FP) PO SCH ×2 (09:44→21:41)
--- NOTE | 2018-05-08 12:43 | PN ---
Teaching Attending Note Name of Resident: Dre Hayes ATTENDING PHYSICIAN STATEMENT I saw and evaluated the patient. I reviewed the resident's note and discussed the case with the resident. I agree with the resident's findings and plan as documented. SUBJECTIVE:asymptomatic. denies Cp, SOB, fever, chills, N/V/C/D, twitching no reported seizure like activity OBJECTIVE: Last Vital Signs Temp Pulse Resp BP Pulse Ox 98 F 86 20 109/72 98 05/08/18 09:00 05/08/18 09:00 05/08/18 09:00 05/08/18 09:00 05/08/18 09:00 General NAD A&O x2 (self and location) CV S1 S2 RRR no murmur/rub/gallop Lungs CTA B/L no wheezing/rales/rhonchi Neuro follow some commands, CN grossly intact. weakness of the LUE/LLE sensation grossly intact ASSESSMENT AND PLAN: 72 y/o F with a significant past medical history of multiple sclerosis ( diagnosed at 20 years of age), CVA (2013), R kidney nephrectomy who presented to [facility] ED this afternoon via ambulance due to involuntary jerking movements of her right arm and leg. 1. RUE/RLE twitching- complex partial seizure with myoclonus. abnormal EEG reported per Neuro. Brain MRI abnormal however may be consistent with hx of MS. started on keppra. no more seiuzre like activity noted. on keppra BID and ativan prn. will await further recommendations per neuro. 2. UTI- +fungal infection. received fluconazole x1 3. Severe malnutrition- as evident by body habitus and BMI 15. dietary consult. states she has always had a thin build 4. CVA with L hemiparesis 5. MS- outpatient neuro follow up 6. R kidney nephrectomy 7. DVT ppx- hep sq 8. possible d/c later today pending neuro recommendations. plan for d/c home with VNS, PT/OT
--- NOTE | 2018-05-08 18:06 | PN ---
Progress Note, Physician History of Present Illness: events noted Chart reviewed No clinical seizure Alert awake Oreiented Follws one steop commands Still with garbled speech at baseline - Current Medication List Current Medications: Active Medications Clonazepam (Klonopin -) 0.25 mg PO BID PRN PRN Reason: MUSCLE SPASMS Heparin Sodium (Porcine) (Heparin -) 5,000 unit SQ TID [facility] Last Admin: 05/08/18 06:34 Dose: 5,000 unit Levetiracetam (Keppra -) 250 mg PO BID [facility] Last Admin: 05/08/18 09:44 Dose: 250 mg - Objective Vital Signs: Vital Signs Temperature 98.2 F 05/08/18 14:40 Pulse Rate 74 05/08/18 14:40 Respiratory Rate 20 05/08/18 14:40 Blood Pressure 146/82 05/08/18 14:40 O2 Sat by Pulse Oximetry (%) 98 05/08/18 09:00 Constitutional: Yes: Well Nourished Eyes: Yes: WNL HENT: Yes: WNL Neurological: Yes: Alert, Oriented, Babinski positive, Dysarthria ...Motor Strength: LUE (0), LLE (0) Labs: CBC, BMP 05/08/18 06:10 05/08/18 06:10 INR, PTT INR 1.03 (0.83-1.09) 05/05/18 06:00 Problem List - Problems (1) Twitching Assessment/Plan: partial focal seziure Note dteh MRI results with Secondary progressive MS neuro ok to go home Keppra Seizure precautions Follwo up with neurology as OP many thanks Code(s): R25.3 - FASCICULATION
[2018-05-08 20:49] VITALS: BMI 16.6
--- NOTE | 2018-05-08 20:54 | PN ---
Physical Exam: SUBJECTIVE: Patient seen and examined OBJECTIVE: Vital Signs Period Temp Pulse Resp BP Sys/Varner Pulse Ox Last 24 Hr 97.2 F-98.2 F 66-86 18-20 105-146/72-82 98-98 GENERAL: The patient is awake, alert, and fully oriented, in no acute distress. HEAD: Normal with no signs of trauma. EYES: PERRL, extraocular movements intact, sclera anicteric, conjunctiva clear. No ptosis. ENT: Ears normal, nares patent, oropharynx clear without exudates, moist mucous membranes. NECK: Trachea midline, full range of motion, supple. LUNGS: Breath sounds equal, clear to auscultation bilaterally, no wheezes, no crackles, no accessory muscle use. HEART: Regular rate and rhythm, S1, S2 without murmur, rub or gallop. ABDOMEN: Soft, nontender, nondistended, normoactive bowel sounds, no guarding, no rebound, no hepatosplenomegaly, no masses. EXTREMITIES: 2+ pulses, warm, well-perfused, no edema. NEUROLOGICAL: Cranial nerves II through XII grossly intact. Normal speech, gait not observed. PSYCH: Normal mood, normal affect. SKIN: Warm, dry, normal turgor, no rashes or lesions noted Laboratory Results - last 24 hr 05/05/18 05/06/18 05/08/18 19:00 07:45 06:10 WBC 4.9 RBC 3.81 Hgb 10.1 L Hct 31.2 L MCV 82.1 MCH 26.6 MCHC 32.4 RDW 15.0 Plt Count 280 MPV 8.0 Sodium Potassium Chloride Carbon Dioxide Anion Gap BUN Creatinine Creat Clearance w eGFR Random Glucose Calcium Phosphorus Magnesium Homocysteine 8.5 ADRI Screen Negative 05/08/18 06:10 WBC RBC Hgb Hct MCV MCH MCHC RDW Plt Count MPV Sodium 141 Potassium 3.8 Chloride 108 H Carbon Dioxide 26 Anion Gap 7 L BUN 20 H Creatinine 0.8 Creat Clearance w eGFR > 60 Random Glucose 109 H Calcium 8.7 Phosphorus 2.9 Magnesium 2.2 Homocysteine ADRI Screen Active Medications Generic Name Dose Route Start Last Admin Trade Name Freq PRN Reason Stop Dose Admin Clonazepam 0.25 mg 05/05/18 18:48 Klonopin - PO BID PRN MUSCLE SPASMS Heparin Sodium (Porcine) 5,000 unit 05/05/18 06:00 05/08/18 14:00 Heparin - SQ Not Given TID [facility] Levetiracetam 250 mg 05/06/18 22:00 05/08/18 09:44 Keppra - PO 250 mg BID [facility] Administration ASSESSMENT/PLAN:
--- NOTE | 2018-05-08 21:16 | DS ---
Physical Exam: SUBJECTIVE: Patient seen and examined at bedside. Denies any complaints. No acute events overnight. OBJECTIVE: Vital Signs Period Temp Pulse Resp BP Sys/Varner Pulse Ox Last 24 Hr 97.2 F-98.2 F 66-86 18-20 105-146/72-82 98-98 PHYSICAL EXAM GENERAL: AAOx3, NAD HEAD: Temporal wasting EYES:pinpoint pupils, decreased vision ENT: Missing teeth, MMM NECK: No JVD. LUNGS:CTA B/L No wheezing rhonchi or rales HEART: RRR ABDOMEN: Soft NDNT No HSM EXTREMITIES: Left arm contracture, twitching decreased, left hemiparesis, hand granulator 5/5 right hand. Strength decreased throughout NEUROLOGICAL: + Babinski LLE, MS, sensation intact throught, strength decreased PSYCH: Normal mood, normal affect. SKIN: no rashes or lesions noted. LABS Laboratory Results - last 24 hr 05/05/18 05/06/18 05/08/18 19:00 07:45 06:10 WBC 4.9 RBC 3.81 Hgb 10.1 L Hct 31.2 L MCV 82.1 MCH 26.6 MCHC 32.4 RDW 15.0 Plt Count 280 MPV 8.0 Sodium Potassium Chloride Carbon Dioxide Anion Gap BUN Creatinine Creat Clearance w eGFR Random Glucose Calcium Phosphorus Magnesium Homocysteine 8.5 ADRI Screen Negative 05/08/18 06:10 WBC RBC Hgb Hct MCV MCH MCHC RDW Plt Count MPV Sodium 141 Potassium 3.8 Chloride 108 H Carbon Dioxide 26 Anion Gap 7 L BUN 20 H Creatinine 0.8 Creat Clearance w eGFR > 60 Random Glucose 109 H Calcium 8.7 Phosphorus 2.9 Magnesium 2.2 Homocysteine ADRI Screen HOSPITAL COURSE: Date of Admission:05/06/18 Pt is a pleasant 72 y/o f with a significant past medical history of multiple sclerosis (diagnosed at 20 years of age), CVA (2013), R kidney nephrectomy who presented to [facility] ED on 05/06/2018 via ambulance due to involuntary jerking movements of her right arm and leg. While in the ED she was underwent a UA which revealed #+ Leuk Esterase for which she was treated with Ceftriaxone. She also underwent a CT of her head which was unremarkable. Further imaging with an MRI W?O contrast was performed, please see MRI report for results. EEG was also performed. Pt had a seizure episode during admission witnessed by Neurology. Pt started on Keppra and Klonopin per neurology. Informed to follow up with Neurology as OP within 1-2 weeks. # Right side body twitching 2/2 Myoclonus and Complex partial seizure -Neurology on board -Dr Hough -Klonapin .25 mg po bid -Head CT--> No acute ischemic changes, no evidence of acute intracranial hemorrhage. Moderate diffuse supratentorial chronic white matter microangiopathic ischemic changes, gliosis -MRI Brain -Neuro checks Q2H -EEG abnormal per Neurology. Pending official read -Keppra 250 mg po bid per neurology -Prolactin level 24.3- elevated -Ativan IVP PRN # UTI -Leukocyte Esterase 3+ - Urine WBC 2170 - 1 gm Ceftriaxone in ED -Ceftriaxone d/c'ed #FEN D5 1/ NS@42cc/hr Monitor electrolytes Puree diet #DVT ppx: Heparin SQ TID #Dispo: Tele Date of Discharge: 05/08/18 Minutes to complete discharge: 35 <Dre Hayes - Last Filed: 05/08/18 21:01> Physical Exam: Ucx showed +yeast infection therefore Ceftriaxone was d/c and was given fluconazole x1 <Elsie Guardado - Last Filed: 05/09/18 08:34> Discharge Summary Reason For Visit: URINARY TRACT INFECTION Current Active Problems Twitching (Acute) UTI (urinary tract infection) (Acute) - Home Medications Comprehensive Discharge Medication List: Ambulatory Orders clonazePAM [Klonopin -] 0.25 mg PO BID PRN #6 tablet MDD 0.5 05/08/18 levETIRAcetam [Keppra -] 250 mg PO BID #60 tablet 05/08/18 <Dre Hayes - Last Filed: 05/08/18 21:01> Current Active Problems Twitching (Acute) UTI (urinary tract infection) (Acute) - Home Medications Comprehensive Discharge Medication List: Ambulatory Orders clonazePAM [Klonopin -] 0.25 mg PO BID PRN #6 tablet MDD 0.5 05/08/18 levETIRAcetam [Keppra -] 250 mg PO BID #60 tablet 05/08/18 <Elsie Guardado - Last Filed: 05/09/18 08:34> Condition: Improved - Instructions Diet, Activity, Other Instructions: You were admitted to the hospital for muscle spasms and seizure-like activity Your MRI and Electroencephalogram did not reveal any acute pathology related to these seizures You should increase your caloric intake to sustain muscle mass. Try drinking ensures which have increase protein Medical Recommendations: -Please take Klonopin 0.25mg up to twice a day as needed for muscle spasms -Please take Keppra (levatiracetam) 25mg twice a day to prevent seizures -Please make an appointment with the neurologist Dr. Hough within 2 weeks of discharge -Please make an appointment with your primary care physician within 1 week of discharge Referrals: Amara Hough MD [Staff Physician] - 2 Weeks Disposition: VNS/HOME HEALTH CARE This patient is new to me today: No Emergency Visit: No Critical Care patient: No - Discharge Referral Referred to [facility] No <Dre Hayes - Last Filed: 05/08/18 21:01>
[2018-05-09] MEDS: HEPARIN NA (PORCINE) 5,000 UNITS/ML 1ML VIAL SQ SCH (05:14)
[2018-05-09 09:33] VITALS: BP 126/77; PULSE 55; TEMP 97.8
[2018-05-09] MEDS: levETIRAcetam 250 MG TABLET (FP) PO SCH (09:51)
== END 2018-05-09 11:53 | disposition home health service (06) | DRG 100 ==
LOC: JER 16:25 → JERBED 21:35 → J6S 05-05 00:46 → OBSVTOIN 05-06 11:23 → J4W 05-06 16:31
PROVIDERS: ADMIT Internal Medicine; ATTEND Internal Medicine
DX: G40.209 Localization-related (focal) (partial) symptomatic epilepsy and epileptic syndromes with complex partial seizures, not intractable, without status epilepticus (principal); G93.41 Metabolic encephalopathy; E43 Unspecified severe protein-calorie malnutrition; N39.0 Urinary tract infection, site not specified; Z68.1 Body mass index [BMI] 19.9 or less, adult; I69.351 Hemiplegia and hemiparesis following cerebral infarction affecting right dominant side; G35 Multiple sclerosis; Z90.5 Acquired absence of kidney; Z90.710 Acquired absence of both cervix and uterus; R25.3 Fasciculation
CPT/HCPCS: 36415; 70450-TC; 70551-TC; 71045-TC-FY; 80048; 80053; 81003; 81015; 82140; 82607; 82977; 83090; 83605; 83735; 84100; 84146; 85025; 85027; 85610; 85651; 85730; 86038; 86140; 87040; 87077; 87086; 93005; 93010; 95816; 99285-25; G0378; J1644

== ENCOUNTER 2018-11-16 16:55 | Inpatient (IN) | payer OTHER | END 2018-11-21 17:00 | disposition home or self-care (01) | LOC: JER 16:55 → J8W 11-20 13:23 → JERBED 20:54 → JICU 23:34 ==

== ENCOUNTER 2019-01-02 02:40 | Inpatient (IN) | payer OTHER ==
--- NOTE | 2019-01-02 03:16 | PDOC ---
History of Present Illness - General Chief Complaint: Seizure Stated Complaint: SEIZURE Time Seen by Provider: 01/02/19 03:15 Past History - Past Medical History Allergies/Adverse Reactions: Allergies Allergy/AdvReac Type Severity Reaction Status Date / Time No Known Allergies Allergy Verified 05/04/18 16:40 Home Medications: Ambulatory Orders clonazePAM [Klonopin -] 0.25 mg PO BID PRN #6 tablet MDD 0.5 05/08/18 Amox-Tr/K Cl [Augmentin 500-125mg Tablet -] 1 tab PO BID@0800,1730 #5 tablet levETIRAcetam [Keppra -] 500 mg PO BID #60 tablet 11/21/18 Cardiac Disorders: Yes (CAD) CVA: Yes COPD: No Dementia: Yes Seizures: Yes - Suicide/Smoking/Psychosocial Hx Smoking History: Unknown if ever smoked Have you smoked in the past 12 months: No Hx Alcohol Use: No Drug/Substance Use Hx: No Hx Substance Use Treatment: No *Physical Exam - Vital Signs Last Vital Signs Temp Pulse Resp BP Pulse Ox 98.7 F 115 H 20 115/77 95 01/02/19 02:45 01/02/19 02:45 01/02/19 02:45 01/02/19 02:45 01/02/19 02:45
--- NOTE | 2019-01-02 03:20 | PDOC ---
Attending Attestation - Resident Resident Name: Sera Steward - ED Attending Attestation I have performed the following: I have examined & evaluated the patient, The case was reviewed & discussed with the resident, I agree w/resident's findings & plan - HPI HPI: 01/02/19 05:58 73-year-old female with a history of seizure disorder status post witnessed seizure with admitted noncompliance with her Keppra yesterday. Patient arrives post ictal. There is no specific history of trauma. - Physicial Exam PE: 01/02/19 05:59 agree with resident exam - Critical Care Time Total Critical Care Time: 90 Critical Care Statement: The care of this patient involved high complexity decision making to prevent further life threatening deterioration of the patient 's condition and/or to evaluate & treat vital organ system(s) failure or risk of failure. - Medical Decision Making 01/02/19 06:00 73-year-old female with increase in seizure activity On arrival patient was postictal and shortly thereafter developed a right-sided gaze preference and generalized tonic-clonic seizure activity Patient given Ativan 2 mg in the emergency department with cessation of seizure activity Plan for labs and CT scan with admission for increased seizure activity and prolonged postictal phase
[2019-01-02] MEDS ORDERED: LORazepam 2 MG/ML SDV VIAL ONE (03:21)
[2019-01-02 03:58] LABS: BASO % 0.3 % (0-2.0); EOS % 0.1 % (0-4.5); HEMATOCRIT 40.5 % (32.4-45.2); HEMOGLOBIN 12.8 GM/dL (10.7-15.3); LYMPH % 5.8 % (8-40); MCH 26.9 pg (25.7-33.7); MCHC 31.6 g/dl (32.0-36.0); MEAN CELL VOLUME 85.2 fl (80-96); MEAN PLT VOLUME 8.5 fl (7.5-11.1); MONO % 6.9 % (3.8-10.2); NEUT % 86.9 % (42.8-82.8); PLATELET COUNT 296 K/MM3 (134-434); RBC 4.76 M/mm3 (3.60-5.2); RDW 15.6 % (11.6-15.6); WHITE BLOOD COUNT 14.3 K/mm3 (4.0-10.0)
[2019-01-02 04:10] LABS: INR 0.97 (0.83-1.09); PROTHROMBIN TIME (PATIENT) 11.4 SEC (9.7-13.0)
[2019-01-02 04:12] LABS: ACTIVATED PTT 36.4 SECONDS (25.2-36.5)
--- NOTE | 2019-01-02 04:18 | PDOC ---
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 Per her family, she had seizures in April and October but none since then. They noticed that she was fluttering her eyes and smacking her mouth with some movement of the right extremities. They did not give her any medicaiton at home to stop the seizures, and they note that she missed her evening keppra today. Ms Rizvi is unable to provide any information, but according to her daughter she has not had any recent symptoms. She has been eating well on her dysphagia diet, no vomiting, no diarrhea, no cough, no rash, no change in urinary habits or urine odor. She has not been febrile. Past History - Past Medical History Allergies/Adverse Reactions: Allergies Allergy/AdvReac Type Severity Reaction Status Date / Time No Known Allergies Allergy Verified 05/04/18 16:40 Home Medications: Ambulatory Orders clonazePAM [Klonopin -] 0.25 mg PO BID PRN #6 tablet MDD 0.5 05/08/18 Amox-Tr/K Cl [Augmentin 500-125mg Tablet -] 1 tab PO BID@0800,1730 #5 tablet levETIRAcetam [Keppra -] 500 mg PO BID #60 tablet 11/21/18 Cardiac Disorders: Yes (CAD) CVA: Yes COPD: No Dementia: Yes Seizures: Yes - Suicide/Smoking/Psychosocial Hx Smoking History: Unknown if ever smoked Have you smoked in the past 12 months: No Hx Alcohol Use: No Drug/Substance Use Hx: No Hx Substance Use Treatment: No Review of Systems - Review of Systems Comments:: Nonverbal *Physical Exam - Vital Signs Last Vital Signs Temp Pulse Resp BP Pulse Ox 98.7 F 115 H 20 115/77 95 01/02/19 02:45 01/02/19 02:45 01/02/19 02:45 01/02/19 02:45 01/02/19 02:45 - Physical Exam Comments: General: Cachectic HEENT: Temporal wasting, adentulous, MMM Cards: Tachycardic, regular, no murmur appreciated Pulm: Comfortable on room air, clear to auscultation bilaterally Abd: Soft, nontender, nondistended Ext: Atraumatic. No LE edema. LUE w/ contracture Vasc: Extremities WWP. Skin: Normal color, no rashes appreciated Neuro: Unresponsive after meds ED Treatment Course - LABORATORY CBC & Chemistry Diagram: 01/02/19 03:40 01/02/19 03:40 - ADDITIONAL ORDERS Additional order review: Laboratory Results 01/02/19 03:40 PT with INR 11.40 INR 0.97 PTT (Actin FS) 36.4 01/02/19 03:40 RBC 4.76 MCV 85.2 MCHC 31.6 L RDW 15.6 MPV 8.5 Neutrophils % 86.9 H D Lymphocytes % 5.8 L D Monocytes % 6.9 Eosinophils % 0.1 D Basophils % 0.3 - Medications Given in the ED: ED Medications Discontinued Medications Generic Name Dose Route Start Last Admin Trade Name Nickq PRN Reason Stop Dose Admin Lorazepam 2 mg 01/02/19 03:29 01/02/19 03:44 Ativan Injection - IVPUSH 01/02/19 03:30 2 mg ONCE ONE Administration Medical Decision Making - Medical Decision Making 01/02/19 04:18 Shital Rizvi is a 73yo woman with a PMH of MS, seizure disorder on keppra, 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 - Per EMS and original exam by Dr Graf, possible status epilepticus with multiple seizures in a row w/o return to baseline - Seizure activity resolved w/ ativan on arrival - Seizure possibly from missed meds but will evaluate for other cause - CBC, CMP, trop, coags, lactate, UA, UCx, CXR, CT head - Keppra load 01/02/19 06:30 - Labs reviewed. Notable for leukocytosis to 14. Possibly reactive v infectious - UA needs to be collected and sent - CT head completed; reviewed. No obvious acute findings. Radiology report pending 01/02/19 07:03 - UA sent, pending - Sign out given to Dr Hinojosa for the remainder of her ED care Discussed with Dr Gonzalez. Jael Harper PGY1 *DC/Admit/Observation/Transfer Diagnosis at time of Disposition: Seizure - Referrals - Patient Instructions - Post Discharge Activity
[2019-01-02 04:24] LABS: ALK PHOS 107 U/L (45-117); ANION GAP 10 MMOL/L (8-16); BILIRUBIN,TOTAL 0.4 mg/dL (0.2-1); BLOOD UREA NITROGEN 15.2 mg/dL (7-18); CALCIUM 9.9 mg/dL (8.5-10.1); CHLORIDE 110 mmol/L (98-107); CO2 24 mmol/L (21-32); CREATININE 1.1 mg/dL (0.55-1.3); GLUCOSE,RANDOM 58 mg/dL (74-106); MAGNESIUM 2.1 mg/dL (1.8-2.4); PHOSPHOROUS 3.4 mg/dL (2.5-4.9); SGOT/AST 21 U/L (15-37); SGPT/ALT 15 U/L (13-61); SODIUM 145 mmol/L (136-145)
[2019-01-02] MEDS ORDERED: levETIRAcetam 500 MG/5 ML INJECTION VIAL IVPB ONE ×2 (05:37→06:03)
--- NOTE | 2019-01-02 07:28 | PDOC ---
*Physical Exam - Vital Signs Last Vital Signs Temp Pulse Resp BP Pulse Ox 98.3 F 93 H 18 94/74 100 01/02/19 06:48 01/02/19 07:21 01/02/19 07:21 01/02/19 07:21 01/02/19 07:21 - Physical Exam Comments: Unable to interact with physical exam 01/02/19 07:50 General Appearance: Yes: Disheveled, Moderate Distress, Other (contracture on L side) Neck: positive: Trachea midline, Supple. negative: Tender Respiratory/Chest: positive: Lungs Clear, Normal Breath Sounds. negative: Labored Respiration Cardiovascular: positive: Regular Rhythm, Regular Rate Gastrointestinal/Abdominal: positive: Normal Bowel Sounds, Flat, Soft Musculoskeletal: positive: Decreased Range of Motion Integumentary: positive: Normal Color, Dry, Warm Neurologic: positive: Other (contracture on L side). negative: Fully Oriented, Alert, Normal Mood/Affect, Normal Response, Motor Strength 5/5, Responsive ED Treatment Course - LABORATORY CBC & Chemistry Diagram: 01/02/19 03:40 01/02/19 03:40 - ADDITIONAL ORDERS Additional order review: Laboratory Results 01/02/19 01/02/19 01/02/19 03:40 03:40 03:40 PT with INR 11.40 INR 0.97 PTT (Actin FS) 36.4 Sodium 145 Potassium 4.0 Chloride 110 H Carbon Dioxide 24 Anion Gap 10 BUN 15.2 Creatinine 1.1 Est GFR (CKD-EPI)AfAm 58.50 Est GFR (CKD-EPI)NonAf 50.47 Random Glucose 58 L Lactic Acid 1.2 Calcium 9.9 Phosphorus 3.4 Magnesium 2.1 Total Bilirubin 0.4 AST 21 ALT 15 Alkaline Phosphatase 107 Creatine Kinase 166 Creatine Kinase Index 2.7 CK-MB (CK-2) 4.5 H Troponin I < 0.02 Total Protein 8.0 Albumin 3.0 L 01/02/19 03:40 RBC 4.76 MCV 85.2 MCHC 31.6 L RDW 15.6 MPV 8.5 Neutrophils % 86.9 H D Lymphocytes % 5.8 L D Monocytes % 6.9 Eosinophils % 0.1 D Basophils % 0.3 - Medications Given in the ED: ED Medications Discontinued Medications Generic Name Dose Route Start Last Admin Trade Name Freq PRN Reason Stop Dose Admin Levetiracetam 500 mg 01/02/19 05:37 01/02/19 06:37 Keppra Injection - IVPB 01/02/19 05:38 500 mg ONCE ONE Administration Lorazepam 2 mg 01/02/19 03:29 01/02/19 03:44 Ativan Injection - IVPUSH 01/02/19 03:30 2 mg ONCE ONE Administration Progress Note - Progress Note Progress Note: 73 yo F PMH stroke with residual L sided deficits, seizures, UTIs, MS, initially p/w seizure, found to have UTI. Plan to admit for further management. Medical Decision Making - Medical Decision Making Sign out received from Dr. Harper. Glu 58, ordered POC glucose. 01/02/19 07:08 CT head reviewed, no acute pathology. Gave 1 g ceftriaxone for UTI. Ordered 1/2 amp D50 for glucose. Decision to admit order placed. 01/02/19 07:34 Talked to hospitalist, admitted to Dr. Das. 01/02/19 08:18 *DC/Admit/Observation/Transfer Diagnosis at time of Disposition: Seizure UTI (urinary tract infection) Qualifiers: Urinary tract infection type: site unspecified - Discharge Dispostion Condition at time of disposition: Stable Decision to Admit order: Yes - Referrals - Patient Instructions - Post Discharge Activity
[2019-01-02] MEDS ORDERED: CEFTRIAXONE 1,000 MG in DEXTROSE 5%-WATER - 50 ML IVPB ONE (07:33)
[2019-01-02] MEDS ORDERED: DEXTROSE 50%-WATER 25 GM/50 ML DISP.SYRIN ONE (07:34)
[2019-01-02] MEDS ORDERED: DEXTROSE 50%-WATER - 25 GM/50 ML VIAL IVPUSH ONE (07:36)
[2019-01-02] MEDS ORDERED: CEFTRIAXONE 1 GM/50 ML BAG ONE (07:43)
[2019-01-02] MEDS ORDERED: LACTATED RINGERS SOLUTION 1,000 ML IV SCH ×4 (08:30→12:05)
--- NOTE | 2019-01-02 08:52 | HP ---
CHIEF COMPLAINT:seizures PCP:Dr. Randolph HISTORY OF PRESENT ILLNESS: Patient is a 73 year old female with past medical history of MS, CVA (2013, with left sided residual deficits, LUE contracture), R nephrectomy, presented to the ED due to seizure-like activity. Patient is currently sedated and history was provided by the ED staff and daughter Abby. As per the daughter, patient was in her usual state of health, AAOx3 and talking normally, when daughter noted patient was lip smacking, fluttering the eyes, and arm twitching. She immediately called 911. As per the ED, patient continued to have multiple seizures en route to the hospital and at the ED, without return to baseline. Ativan 2mg was given at the ED, and the seizures resolved. Patient has had multiple admissions (April 2018, October 2018), where she would present with seizure-like activity and treated for UTI. On her last admission, Keppra was increased to 500mg BID. Upon follow up with the PCP a few weeks later , Keppra dose was decreased to 250mg BID. Daughter also noted that patient did not receive Keppra last night, but has otherwise been compliant. She reported patient was doing well at home, and did not have any fevers, cough, SOB, diarrhea, urinary symptoms. At the ED, patient received Ativan 2mg which resolved the seizures. Patient is currently not awake and alert. She was also noted to be hypoglycemic at 68, and was given 1/2 amp of D50. Urine sample was taken, and urine was noted to be purulent/cloudy. Ceftriaxone 1gm was given. Point of contact: Daughter - Abby - Cell: / Home: ER course was notable for: (1)Head CT: No evidence of acute intracranial hemorrhage, edema, midline shift, mass effect, or skull fracture. No evidence of acute territorial ischemic changes. No interval change in comparison to previous head CT. (2) (3) Recent Travel:denies PAST MEDICAL HISTORY: MS CVA (left sided residual deficits, LUE contracture) PAST SURGICAL HISTORY: R nephrectomy Social History: Smoking:denies Alcohol:denies Drugs: denies Family History:[place] Allergies No Known Allergies Allergy (Verified 05/04/18 16:40) HOME MEDICATIONS: Home Medications Medication Instructions Recorded clonazePAM [Klonopin -] 0.25 mg PO BID PRN #6 tablet MDD 05/08/18 0.5 levETIRAcetam [Keppra -] 250 mg PO BID 01/02/19 REVIEW OF SYSTEMS CONSTITUTIONAL: Absent: fever, chills, diaphoresis, generalized weakness, malaise, loss of appetite, weight change HEENT: Absent: rhinorrhea, nasal congestion, throat pain, throat swelling, difficulty swallowing, mouth swelling, ear pain, eye pain, visual changes CARDIOVASCULAR: Absent: chest pain, syncope, palpitations, irregular heart rate, lightheadedness , peripheral edema RESPIRATORY: Absent: cough, shortness of breath, dyspnea with exertion, orthopnea, wheezing, stridor, hemoptysis GASTROINTESTINAL: Absent: abdominal pain, abdominal distension, nausea, vomiting, diarrhea, constipation, melena, hematochezia GENITOURINARY: Absent: dysuria, frequency, urgency, hesitancy, hematuria, flank pain, genital pain MUSCULOSKELETAL: Absent: myalgia, arthralgia, joint swelling, back pain, neck pain SKIN: Absent: rash, itching, pallor HEMATOLOGIC/IMMUNOLOGIC: Absent: easy bleeding, easy bruising, lymphadenopathy, frequent infections ENDOCRINE: Absent: unexplained weight gain, unexplained weight loss, heat intolerance, cold intolerance NEUROLOGIC: seizure Absent: headache, focal weakness or paresthesias, dizziness, unsteady gait, mental status changes, bladder or bowel incontinence PSYCHIATRIC: Absent: anxiety, depression, suicidal or homicidal ideation, hallucinations. PHYSICAL EXAMINATION Vital Signs - 24 hr 01/02/19 01/02/19 01/02/19 02:45 06:48 07:21 Temperature 98.7 F 98.3 F Pulse Rate 115 H Pulse Rate [ 94 H 93 H Right Radial] Respiratory 20 18 Rate Blood Pressure 115/77 Blood Pressure 94/74 94/74 [Right Arm] O2 Sat by Pulse 95 100 100 Oximetry (%) 01/02/19 08:44 Temperature Pulse Rate Pulse Rate [ 85 Right Radial] Respiratory 16 Rate Blood Pressure Blood Pressure 109/77 [Right Arm] O2 Sat by Pulse 100 Oximetry (%) GENERAL: Patient is sedated, unresponsive to voice, grimaces to pain, on 2L NC. HEAD: Normal with no signs of trauma. EYES: PERRLA, EOMI, sclera anicteric, conjunctiva clear. EARS, NOSE, THROAT: No thrush, oropharynx clear without exudates. Dry mucous membranes. NECK: Normal range of motion, supple. LUNGS: Breath sounds equal, clear to auscultation bilaterally. HEART: Regular rate and rhythm, normal S1 and S2 without murmur, rub or gallop. ABDOMEN: Soft, not distended, nontender,normoactive bowel sounds. MUSCULOSKELETAL: LUE contracture noted LOWER EXTREMITIES: 2+ pulses, warm, well-perfused. No peripheral edema. SKIN: Warm, dry, normal turgor, no rashes or lesions noted. Laboratory Results - last 24 hr 01/02/19 01/02/19 01/02/19 03:40 03:40 03:40 WBC 14.3 H RBC 4.76 Hgb 12.8 Hct 40.5 D MCV 85.2 MCH 26.9 MCHC 31.6 L RDW 15.6 Plt Count 296 MPV 8.5 Absolute Neuts (auto) 12.4 H Neutrophils % 86.9 H D Lymphocytes % 5.8 L D Monocytes % 6.9 Eosinophils % 0.1 D Basophils % 0.3 Nucleated RBC % 0 PT with INR 11.40 INR 0.97 PTT (Actin FS) 36.4 Sodium 145 Potassium 4.0 Chloride 110 H Carbon Dioxide 24 Anion Gap 10 BUN 15.2 Creatinine 1.1 Est GFR (CKD-EPI)AfAm 58.50 Est GFR (CKD-EPI)NonAf 50.47 POC Glucometer Random Glucose 58 L Lactic Acid Calcium 9.9 Phosphorus 3.4 Magnesium 2.1 Total Bilirubin 0.4 AST 21 ALT 15 Alkaline Phosphatase 107 Creatine Kinase 166 Creatine Kinase Index 2.7 CK-MB (CK-2) 4.5 H Troponin I < 0.02 Total Protein 8.0 Albumin 3.0 L 01/02/19 01/02/19 03:40 07:32 WBC RBC Hgb Hct MCV MCH MCHC RDW Plt Count MPV Absolute Neuts (auto) Neutrophils % Lymphocytes % Monocytes % Eosinophils % Basophils % Nucleated RBC % PT with INR INR PTT (Actin FS) Sodium Potassium Chloride Carbon Dioxide Anion Gap BUN Creatinine Est GFR (CKD-EPI)AfAm Est GFR (CKD-EPI)NonAf POC Glucometer 68 Random Glucose Lactic Acid 1.2 Calcium Phosphorus Magnesium Total Bilirubin AST ALT Alkaline Phosphatase Creatine Kinase Creatine Kinase Index CK-MB (CK-2) Troponin I Total Protein Albumin ASSESSMENT/PLAN: Patient is a 73 year old female with past medical history of MS, CVA (2013, with left sided residual deficits, LUE contracture), R nephrectomy, presented to the ED due to seizures. #Sepsis 2/2 UTI -leukocytosis, hypothermic -UA: WBC 7133, Bacteria 4K -IV ceftriaxone given at the ED -Will give IV Zosyn 3.375gm -Previous UCx were positive for yeast like organisms, Diflucan was given at that time -Follow up urine and blood cultures -Will give IVF bolus 500cc, and continue maintenance at 100cc/hr with IV D5/Ns -Maintain MAP >65 -O2 supplement PRN to keep SpO2>90% -ID (Dr. Rosa) consulted. #Complex partial seizures -Likely breakthrough 2/2 infection and hypoglycemia -Keppra 500mg IV given at the ED -Will continue Keppra 500mg IVPB BID, consider switching to PO when patient is more awake -Seizure precautions -Neurology (Dr. Hough) consulted. #Acute metabolic encephalopathy -likely 2/2 Ativan,UTI -neuro checks -IVF, antibiotics #Hypoglycemia -likely from poor oral intake -1/2 amp D50 given at the ED, repeat glucose 176 -will continue to monitor bgm q3h -D5/NS IVF #Hx of MS -Speech and swallow eval done on previous admission -Dyspagia puree diet recommended #FEN -IV D5/Ns @100cc/hr -Electrolytes wnl, routine bmp monitoring -Dysphagia puree diet with nectar thickened liquids #Prophylaxis -Heparin 5000u sq tid #Disposition -admit to tele -spoke with daughter, Abby, patient is full code at this time. But she expresses she doesn't want her mom to suffer. Visit type - Emergency Visit Emergency Visit: Yes ED Registration Date: 01/02/19 Care time: The patient presented to the Emergency Department on the above date and was hospitalized for further evaluation of their emergent condition. - New Patient This patient is new to me today: Yes Date on this admission: 01/02/19 - Critical Care Critical Care patient: No ATTENDING PHYSICIAN STATEMENT I saw and evaluated the patient. I reviewed the resident's note and discussed the case with the resident. I agree with the resident's findings and plan as documented. SUBJECTIVE: OBJECTIVE: ASSESSMENT AND PLAN:
[2019-01-02] MEDS ORDERED: PIPERACILLIN/TAZOB 3.375 GM 3.375 GM in DEXTROSE 5%-WATER - 50 ML IVPB SCH ×3 (10:00→18:00)
[2019-01-02] MEDS ORDERED: HEPARIN NA (PORCINE) 5,000 UNITS/ML 1ML VIAL SQ SCH (10:00)
[2019-01-02] MEDS ORDERED: LACTATED RINGERS SOLUTION 1,000 ML/1,000 ML INFUS.BAG IV STA ×2 (10:06→12:45)
[2019-01-02 10:21] LABS: URINE COLOR YELLOW
[2019-01-02 10:22] LABS: URINE BILIRUBIN NEGATIVE (NEGATIVE); URINE GLUCOSE (UA) NEGATIVE (NEGATIVE)
[2019-01-02 10:23] LABS: URINE APPEARANCE CLOUDY; URINE KETONE TRACE (NEGATIVE); URINE PROTEIN 30 (NEGATIVE); URINE UROBILINOGEN 0.2 mg/dL (0.2-1.0)
[2019-01-02 10:24] LABS: HYALINE CASTS 379 /lpf (0-8); URINE LEUK ESTERASE MODERATE (NEGATIVE); URINE NITRITE NEGATIVE (NEGATIVE); URINE RBC 50.4 /hpf (0-4); URINE WBC 7133 /hpf (0-5)
[2019-01-02 10:25] LABS: URINE BACTERIA 4022.6 /hpf (NEGATIVE); URINE CRYSTALS NONE SEEN /hpf; YEAST NONE NEEN (NEGATIVE)
[2019-01-02] MEDS ORDERED: DEXTROSE 5%-WATER - 50 ML IVPB ONE ×2 (10:49→17:53)
[2019-01-02] MEDS ORDERED: PIPERACILLIN/TAZOBACTAM 3.375 GM VIAL IVPB ONE ×2 (10:49→17:53)
--- NOTE | 2019-01-02 11:42 | CONSULT ---
Consultation: REQUESTING PROVIDER: Dr. Fouzia Anaya CONSULT REQUEST: We have been asked to medically evaluate this patient for the ICU for lethargy. HISTORY OF PRESENT ILLNESS: Pt. is a 73 y.o. F w/ PMHx. 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 Pt. was responsive only to painful stimuli but had received 2mg Ativan in the ED because of multiple episodes of seizure like activity. Pt.s family was not at bedside during examination. Of note Pt. was recently admitted in October for a similar seizure-like activity and found to have a UTI on evaluation. Pt. was treated and discharged on Augmentin. Pt.'s Keppra was increased to 500mg BID but later decreased to 250mg. Of note Pt. did not receive night dose of Keppra from the night before. Pt. at baseline is A&O x3 as reported by daughter to RN. Pt. is able to make her needs known and jokes with family. REVIEW OF SYSTEMS: Unable to obtain PHYSICAL EXAMINATION Vital Signs - 24 hr 01/02/19 01/02/19 01/02/19 02:45 06:48 07:21 Temperature 98.7 F 98.3 F Pulse Rate 115 H Pulse Rate [ 94 H 93 H Right Radial] Respiratory 20 18 Rate Blood Pressure 115/77 Blood Pressure 94/74 94/74 [Right Arm] O2 Sat by Pulse 95 100 100 Oximetry (%) 01/02/19 01/02/19 08:44 09:45 Temperature 94.0 F L Pulse Rate 80 Pulse Rate [ 85 Right Radial] Respiratory 16 18 Rate Blood Pressure 94/66 Blood Pressure 109/77 [Right Arm] O2 Sat by Pulse 100 Oximetry (%) GENERAL: Obtunded, in no acute distress HEAD: Normal with no signs of trauma, temporal wasting EYES: Strabismus, sclera anicteric, conjunctiva clear. EARS, NOSE, THROAT: Ears normal, nares patent, Dry mucous membranes, lip- smacking present LUNGS: Decreased breath sounds ue to poor effort, clear to auscultation bilaterally. No wheezes, and no crackles. No accessory muscle use. HEART: Regular rate and rhythm, normal S1 and S2 without murmur ABDOMEN: Soft, suprapubic tenderness(Pt. moved and appeared in distress to palpation), not distended, normoactive bowel sounds, no guarding, no rebound, no masses. MUSCULOSKELETAL: LUE contracture UPPER EXTREMITIES: 1+ radial pulses, warm, well-perfused. No cyanosis. No peripheral edema. Pt. on Bare-hugger LOWER EXTREMITIES: 1+ dorsal pedal pulses, warm, well-perfused. No calf tenderness. No peripheral edema. NEUROLOGICAL: Obtunded, responsive only to painful stimuli PSYCHIATRIC: Cooperative. Good eye contact. Appropriate mood and affect. SKIN: Warm, dry, normal turgor, no rashes or lesions noted. Laboratory Results - last 24 hr 01/02/19 01/02/19 01/02/19 03:40 03:40 03:40 WBC 14.3 H RBC 4.76 Hgb 12.8 Hct 40.5 D MCV 85.2 MCH 26.9 MCHC 31.6 L RDW 15.6 Plt Count 296 MPV 8.5 Absolute Neuts (auto) 12.4 H Neutrophils % 86.9 H D Lymphocytes % 5.8 L D Monocytes % 6.9 Eosinophils % 0.1 D Basophils % 0.3 Nucleated RBC % 0 PT with INR 11.40 INR 0.97 PTT (Actin FS) 36.4 Sodium 145 Potassium 4.0 Chloride 110 H Carbon Dioxide 24 Anion Gap 10 BUN 15.2 Creatinine 1.1 Est GFR (CKD-EPI)AfAm 58.50 Est GFR (CKD-EPI)NonAf 50.47 POC Glucometer Random Glucose 58 L Lactic Acid Calcium 9.9 Phosphorus 3.4 Magnesium 2.1 Total Bilirubin 0.4 AST 21 ALT 15 Alkaline Phosphatase 107 Creatine Kinase 166 Creatine Kinase Index 2.7 CK-MB (CK-2) 4.5 H Troponin I < 0.02 Total Protein 8.0 Albumin 3.0 L Urine Color Urine Appearance Urine pH Ur Specific [place] Urine Protein Urine Glucose (UA) Urine Ketones Urine Blood Urine Nitrite Urine Bilirubin Urine Urobilinogen Ur Leukocyte Esterase Urine WBC (Auto) Urine RBC (Auto) Urine Casts (Auto) U Pathogenic Cast Auto U Sm Round Cell (Auto) Urine Crystals (Auto) Urine Bacteria (Auto) Urine Yeast (Auto) 01/02/19 01/02/19 01/02/19 03:40 06:30 07:32 WBC RBC Hgb Hct MCV MCH MCHC RDW Plt Count MPV Absolute Neuts (auto) Neutrophils % Lymphocytes % Monocytes % Eosinophils % Basophils % Nucleated RBC % PT with INR INR PTT (Actin FS) Sodium Potassium Chloride Carbon Dioxide Anion Gap BUN Creatinine Est GFR (CKD-EPI)AfAm Est GFR (CKD-EPI)NonAf POC Glucometer 68 Random Glucose Lactic Acid 1.2 Calcium Phosphorus Magnesium Total Bilirubin AST ALT Alkaline Phosphatase Creatine Kinase Creatine Kinase Index CK-MB (CK-2) Troponin I Total Protein Albumin Urine Color Yellow Urine Appearance Cloudy Urine pH 5.0 Ur Specific [place] 1.013 Urine Protein 30 Urine Glucose (UA) Negative Urine Ketones Trace H Urine Blood Moderate Urine Nitrite Negative Urine Bilirubin Negative Urine Urobilinogen 0.2 Ur Leukocyte Esterase Moderate Urine WBC (Auto) 7133 Urine RBC (Auto) 50.4 Urine Casts (Auto) 379 U Pathogenic Cast Auto None seen U Sm Round Cell (Auto) None seen Urine Crystals (Auto) None seen Urine Bacteria (Auto) 4022.6 Urine Yeast (Auto) None neen 01/02/19 09:18 WBC RBC Hgb Hct MCV MCH MCHC RDW Plt Count MPV Absolute Neuts (auto) Neutrophils % Lymphocytes % Monocytes % Eosinophils % Basophils % Nucleated RBC % PT with INR INR PTT (Actin FS) Sodium Potassium Chloride Carbon Dioxide Anion Gap BUN Creatinine Est GFR (CKD-EPI)AfAm Est GFR (CKD-EPI)NonAf POC Glucometer 176 Random Glucose Lactic Acid Calcium Phosphorus Magnesium Total Bilirubin AST ALT Alkaline Phosphatase Creatine Kinase Creatine Kinase Index CK-MB (CK-2) Troponin I Total Protein Albumin Urine Color Urine Appearance Urine pH Ur Specific [place] Urine Protein Urine Glucose (UA) Urine Ketones Urine Blood Urine Nitrite Urine Bilirubin Urine Urobilinogen Ur Leukocyte Esterase Urine WBC (Auto) Urine RBC (Auto) Urine Casts (Auto) U Pathogenic Cast Auto U Sm Round Cell (Auto) Urine Crystals (Auto) Urine Bacteria (Auto) Urine Yeast (Auto) Active Medications Current Medications Heparin Sodium (Porcine) (Heparin -) 5,000 unit SQ TID KRYSTEN Piperacillin Sod/Tazobactam (Sod 3.375 gm/ Dextrose) 50 mls @ 100 mls/hr IVPB Q8H-IV KRYSTEN; Protocol Lactated Ringer's (Lactated Ringers Solution) 1,000 ml in 1,000 mls @ 500 mls/ hr IV ONCE STA Stop: 01/02/19 12:05 Last Admin: 01/02/19 11:10 Dose: 500 mls/hr Piperacillin Sod/Tazobactam (Sod 3.375 gm/ Dextrose) 50 mls @ 100 mls/hr IVPB Q8H-IV KRYSTEN; Protocol Stop: 01/03/19 10:44 Last Admin: 01/02/19 11:30 Dose: 100 mls/hr Lactated Ringer's (Lactated Ringers Solution) 1,000 mls @ 100 mls/hr IV ASDIR KRYSTEN Levetiracetam (Keppra Injection -) 500 mg IVPB BID KRYSTEN ASSESSMENT/PLAN: Pt. is a 73 y.o. F w/ PMHx. 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 Neurology/Nephrology/Infectious Disease #Acute metabolic encephalopathy 2/2 UTI UA: moderate Leukocyte Esterase, 7133 WBCs Pt. given Ceftriaxone in ED, c/w Zosyn ID Consult to Dr. Rosa appreciated f/u UCx. for speciation and BCx. would consider fluconazole as Pt. had fungal growth in her urine on prior admissions. LA:1.2 Leukocytosis to 14k w/ left shift of 87% IVF: Given 1L LR in ED and will bolus 1L LR on floor c/w LR @ 75 consider consulting Neurology for further evaluation of seizure activity and why increasing Keppra was not followed. Dr. Hough has not seen him in the past. Given and additional Ativan 2mg IV and eyes became more conjugate in gaze f/u EEG f/u ABG Gastroenterology #Failure to thrive 2/2 Malnutrition BMI 15.7 Bi-temporal wasting would give supplemental nutrition (Magic Cup and Ensure), and encourage PO intake when tolerated #DVT Ppx. c/w Hep SQ Dispo: We will follow. Thank you for this consultative opportunity. Visit type - Emergency Visit Emergency Visit: Yes ED Registration Date: 01/02/19 Care time: The patient presented to the Emergency Department on the above date and was hospitalized for further evaluation of their emergent condition. - New Patient This patient is new to me today: Yes Date on this admission: 01/02/19 - Critical Care Critical Care patient: Yes Total Critical Care Time (in minutes): 55 Critical Care Statement: The care of this patient involved high complexity decision making to prevent further life threatening deterioration of the patient 's condition and/or to evaluate & treat vital organ system(s) failure or risk of failure. ATTENDING PHYSICIAN STATEMENT I saw and evaluated the patient. I reviewed the resident's note and discussed the case with the resident. I agree with the resident's findings and plan as documented. SUBJECTIVE: OBJECTIVE: ASSESSMENT AND PLAN:
--- NOTE | 2019-01-02 12:05 | PN ---
Teaching Attending Note Name of Resident: Fouzia Jay ATTENDING PHYSICIAN STATEMENT I saw and evaluated the patient. I reviewed the resident's note and discussed the case with the resident. I agree with the resident's findings and plan as documented. CC: seizure activity HPI: 73 y/o lady with h/o MS, CVA s/p L sided weakness and contraction, R nephrectomy, PNA, constipation , Seizure disorder 05/12, septic shock form UTI , who presented from home with seizure activity. she was diagnosed with complex partial seizures in 05/12, was placed on keppra 250 bid . she responded. seizure activity recurred in 11/10 when she was diagnosed with septic shock form UTI. keppra was increased to 500 bid tat dc. as out it was decreased it to 250 BID. last night daughter noticed twitching in her face and arms and smacking movements in her lips. she brought her here. in ER she was noticed to be hypoglycemic, and she had a seizure in ER. Ativan was given and she became unresponsive and sedated. glucose was repeated after few hours in ER. She was given 1/2 amp of dextrose. she developed hypothermia in ER and UA showed pyuria so she was given ceftriaxone and urine cx was sent. No blood cx sent before Abx . now on floor, unresponsive. family is not around. OBJECTIVE: sleeping, RR 12, round equal pupils, 2 mm , sluggish reaction to light. cachectic. temporal wasting dry MM. CV: RRR, no MRG Lungs: decreased breath sounds, clear though, poor effort Abd: soft, nl BD, NT Ext : LUE contraction at level of elbow, werist and hand. muscle atrophy. skin : No decub ulcers on sacral area or on heels ASSESSMENT AND PLAN: 73 y/o lady with h/o MS, CVA s/p L sided weakness and contraction, R nephrectomy , PNA, constipation , Seizure disorder 05/12, septic shock form UTI 11/10, who presented from home with seizure activity. 1- Seizure activity: likely triggered by sepsis and hypoglycemia. now toxic metabolic encephalopathy due to ativan - given 500 mg of IV keppra - cont 500 BID - neuro consult - avoid hypoglycemia . BGM q 3 hours 2- Sepsis: due to UTI. - heating blanket for hypothermia - send blood cx as it was not sent before abx - gave one dose of zosyn given her condition yeast and absence of growth on previous cultures - yeast grew onprevious urine cx and she was treated transiently with fluconazole - will ask ID to help with Abx - follow urine cx - give IVF - Asked ICU team to evaluate 3- Hypoglycemia: due to sepsis. received D50 in ER. sugar 176 now - monitor BGM q 3 hrs - add d5 to IVF 4- Code status, to be d/w daughter by Dr. Narayanan will place on tele if declined by ICU
[2019-01-02] MEDS ORDERED: DEXTROSE 5%-NORMAL SALINE 1,000 ML IV SCH ×2 (12:15→23:27)
[2019-01-02] MEDS ORDERED: LORazepam 2 MG/ML SDV VIAL IVPUSH ONE (12:42)
[2019-01-02 13:28] LABS: ARTERIAL BLD GAS O2 SATURATION 99.6 % (95-98); ARTERIAL BLOOD GAS BASE EXCESS 0.3 meq/l (-2-2); ARTERIAL BLOOD GAS PCO2 42.4 mmHg (35-45); ARTERIAL BLOOD GAS PO2 204 mmHg (80-105); ARTERIAL BLOOD GAS pH 7.39 (7.35-7.45)
[2019-01-02 13:33] LABS: ALLENS TEST POSITIVE
--- NOTE | 2019-01-02 13:34 | PN ---
Progress Note (short form) - Note Progress Note: ID CONSULT DICTATED R/O SEPTIC SHOCK HYPOTHERMIA/HYPOTENSION/ HYPOGLYCEMIA POSSIBLY RELATED TO SEPSIS RECURRENT UTI S/P SEIZURE MS HX NEPHRECTOMY PENDING SEPSIS W/U EMPIRIC ZOSYN// FLUCONAZOLE CRITICAL CARE TIME 35MIN
[2019-01-02] MEDS ORDERED: FLUCONAZOLE 200 MG/D5W 100 ML IVPB SCH (13:45)
[2019-01-02] MEDS ORDERED: VANCOMYCIN 1 GRAM (PRE-DOCKED) 1,000 MG/250 ML BAG IVPB ONE (13:45)
--- NOTE | 2019-01-02 14:09 | PN ---
Teaching Attending Note Name of Resident: Ilya Youngblood ATTENDING PHYSICIAN STATEMENT I saw and evaluated the patient. I reviewed the resident's note and discussed the case with the resident. I agree with the resident's findings and plan as documented. SUBJECTIVE: Pt seen and examined. Briefly, 73yo female with h/o multiple sclerosis, h/o CVA who was admitted with seizure like activity. Found to have a UTI, started on antibiotics and IVF. On the floor, noted to be unresponsive and hypothermic. Upon evaluation, pt obtunded with disconjugate, fixed gaze. Before receiving ativan, pt spontaneously became less rigid, now with conjugate gaze but still lethargic. OBJECTIVE: Vital Signs Period Temp Pulse Resp BP Sys/Varner Pulse Ox Last 24 Hr 94.0 F-98.7 F 76-115 16-20 89-115/63-77 95-100 Intake & Output 12/30/18 12/31/18 01/01/19 01/02/19 23:59 23:59 23:59 23:59 Weight 40.279 kg Gen: lethargic Heart: RRR Lung: decreased breath sounds at the bases Abd: soft, nontender Ext: left arm contracted CBC, BMP 01/02/19 03:40 01/02/19 03:40 Active Medications Heparin Sodium (Porcine) (Heparin -) 5,000 unit SQ TID KRYSTEN Dextrose/Sodium Chloride (D5-Ns -) 1,000 mls @ 100 mls/hr IV ASDIR KRYSTEN Piperacillin Sod/Tazobactam (Sod 3.375 gm/ Dextrose) 50 mls @ 100 mls/hr IVPB Q8H-IV KRYSTEN; Protocol Fluconazole (Diflucan 200 Mg/D5w Premixed Ivpb -) 100 mls @ 100 mls/hr IVPB DAILY KRYSTEN Vancomycin HCl (Vancomycin (Pre-Docked)) 1,000 mg in 250 mls @ 166.667 mls/hr IVPB ONCE ONE; Protocol Stop: 01/02/19 15:14 Levetiracetam (Keppra Injection -) 500 mg IVPB BID [facility] ASSESSMENT AND PLAN: r/o Nonconvulsive Status Epilepticus UTI Sepsis Multiple Sclerosis h/o CVA h/o R Nephrectomy - antieplieptics - neuro checks - EEG - seizure precautions - neuro eval - antibitoics per ID - f/u cultures - IVF - monitor urine output, creatinine - aspiration precautions - ICU monitoring for now critical care time spent in reviewing chart, evaluating patient and formulating plan 35 min
--- NOTE | 2019-01-02 14:12 | CONS ---
INFECTIOUS DISEASE CONSULTATION DATE OF CONSULTATION: DATE OF DICTATION: 01/02/2019 HISTORY: The patient is a 73-year-old female evaluated for septic shock. History was obtained from the chart as the patient cannot give a history secondary to her mental status. She has a known history of seizure disorder. She was admitted to the hospital on January 01, 2019, after having seizure activity. In the emergency room, she was in a postictal state and was witnessed to have additional seizure activity. CAT scan of the head was negative for acute infarct or bleed. She has a prior history of left CVA. Her course was complicated by hypothermia, hypotension, hypoglycemia, and elevated white blood cell count. Her urine on examination was noted to be cloudy. Cultures are pending. She was empirically treated with ceftriaxone. At the present time, she is not verbally responsive. She is responsive to noxious stimulus. She is in no acute distress. Her breathing is nonlabored. PAST MEDICAL HISTORY: Positive for stroke with left hemiparesis, seizure disorder, multiple sclerosis, history of recurrent urinary tract infections. Patient's last hospital admission in October 2018, was complicated by urinary tract infection with septic shock requiring ICU admission. PAST SURGICAL HISTORY: Status post right nephrectomy. ALLERGIES: No known allergies. MEDICATIONS: At the present time include ceftriaxone, heparin, Keppra, Ativan. SOCIAL HISTORY: She resides at home in the community. Nonsmoker, nondrinker. SYSTEMS REVIEW: Neurologic: As per HPI. Cardiac: Negative for chest pain. Respiratory: Negative for cough or sputum production. Gastrointestinal: Negative vomiting or diarrhea. Genitourinary: As per HPI. LABORATORY DATA: White count 14.3, neutrophils 86, lymphocytes 5, monocytes 6, hematocrit 40.5, platelet count 296, BUN 15, creatinine 1.1. Urinalysis 7133 white cells. Liver enzymes normal. Chest x-ray negative for acute infiltrate. PHYSICAL EXAMINATION: General: She is not verbally responsive. Responds to noxious stimulus. Vital Signs: Temperature 94.4, blood pressure 89/63, pulse 76 regular, respirations 18 per minute. HEENT: Sclerae anicteric. Heart: Sounds S1, S2. Lungs: Clear. Abdomen: Soft. No tenderness elicited. Extremities: Negative for edema. There are contractures present to left upper extremity and lower extremities. Skin: Appears intact. No sacral or heel decubiti. IMPRESSION: 1. Rule out septic shock. 2. Urinary tract infection, possible septic shock secondary to urinary tract focus. 3. Status post seizure activity. 4. Hypothermia, hypotension, and hypoglycemia likely secondary to sepsis. 5. Status post right nephrectomy. 6. Status post cerebrovascular accident. 7. Multiple sclerosis. 8. History of positive urine culture for yeast. PLAN: Patient transferred to the intensive care unit. Continue ICU monitoring. Hemodynamic support. Empiric antibiotic coverage with Zosyn and fluconazole. STAT dose of vancomycin pending sepsis workup. Further recommendations pending cultures and sepsis workup. We will follow. Critical care time 35 minutes. Thank you for the kind referral. ED TEMPLE M.D. [id number]
--- NOTE | 2019-01-02 16:16 | PROC ---
Central Line Insertion Indication: Sepsis Risks and Benefits Explained: Yes Consent on Chart: Yes Central Line: Triple Lumen Catheter Anesthesia: 1% Lidocaine Sterile Technique: Yes Ultrasound Guided Assistance: Yes Position: Right Internal Jugular Post Insertion: Yes: Chest X-Ray Ordered Sterile Dressing Applied: Yes
--- NOTE | 2019-01-02 17:01 | EKG ---
Test Reason : Blood Pressure : / mmHG Vent. Rate : 077 BPM Atrial Rate : 077 BPM P-R Int : 152 ms QRS Dur : 086 ms QT Int : 414 ms P-R-T Axes : 072 -34 028 degrees QTc Int : 468 ms NORMAL SINUS RHYTHM BIATRIAL ENLARGEMENT LEFT AXIS DEVIATION ABNORMAL ECG WHEN COMPARED WITH ECG OF 16-NOV-2018 17:34, QRS AXIS SHIFTED LEFT Confirmed by WILLAM NELSON, JAY ([id number]) on 01/02/2019 5:01:43 PM Referred By: Confirmed By:JAY QUARLES MD
[2019-01-02] MEDS: HEPARIN NA (PORCINE) 5,000 UNITS/ML 1ML VIAL SQ SCH ×2 (17:04→21:27)
--- NOTE | 2019-01-02 17:13 | CON.NEURO ---
Consult Consult Specialty:: [place] Referred by:: ER - History of Present Illness History of Present Illness: 73-year-old right-handed female patient history of CVA with left HP seizure disorder, mild dementia, relapsing remitting multiple sclerosis on Keppra 250 twice daily presented to the hospital with questionable episode of altered sensorium no report of generalized tonic-clonic movement no tongue biting or urinary incontinence. Patient was poorly responsive when she came to the emergency room Ativan was given CAT scan of the head revealed no evidence of acute pathology patient was admitted to the medical floor for further treatment and management. Patient was seen by infectious disease specialist. No report of any recent travel no neck stiffness. Since admission to the floor with no recurrence of her seizure. Saw [facility] patient in the mICU Patient is totally unresponsive not able to give any history Patient received Ativan upstairs - History Source History Provided By: Medical Record Limitations to Obtaining History: Clinical Condition - Past Medical History CHIEF COMPLIANCE OFFICER: Yes: CVA (CVA 2013 with L sided residual deficits.), Multiple Sclerosis - Past Surgical History Past Surgical History: Yes: Nephrectomy (right) - Alcohol/Substance Use Hx Alcohol Use: No History of Substance Use: reports: None - Smoking History Smoking history: Unknown if ever smoked Have you smoked in the past 12 months: No - Social History ADL: Family Assistance Home Medications - Allergies Allergies/Adverse Reactions: Allergies Allergy/AdvReac Type Severity Reaction Status Date / Time No Known Allergies Allergy Verified 05/04/18 16:40 - Home Medications Home Medications: Ambulatory Orders clonazePAM [Klonopin -] 0.25 mg PO BID PRN #6 tablet MDD 0.5 05/08/18 levETIRAcetam [Keppra -] 250 mg PO BID 01/02/19 Family Disease History - Family Disease History Family History: Unable to Obtain Review of Systems Unable to obtain ROS, reason: unable to obtain Physical Exam-Neuro Vital Signs: Vital Signs Temperature 94.4 F L 01/02/19 12:18 Pulse Rate 76 01/02/19 12:18 Respiratory Rate 18 01/02/19 12:18 Blood Pressure 89/63 L 01/02/19 12:18 O2 Sat by Pulse Oximetry (%) 99 01/02/19 09:30 Constitutional: Yes: Well Nourished Neck: Yes: WNL Cardiovascular: Yes: WNL Labs: CBC, BMP 01/02/19 03:40 01/02/19 03:40 INR, PTT INR 0.97 (0.83-1.09) 01/02/19 03:40 - Neuro Exam Level Of Consciousness: Yes: Comatose, Sedated Eyes: Yes: PERRLA (no response to verbakl or pain no gaze deviation mild griimce to sternal rub ) Imaging - Results Cat Scan: Image Reviewed Problem List - Problems (1) Seizure Assessment/Plan: 73-year-old right handed woman with history of epilepsy on low dosage of Keppra Questionable breakthrough seizure Multiple sclerosis stable 1. Neuro checks every 1 hour. 2. Ativan when necessary seizure. 3. Prolactin level stat. 4. Increase Keppra to 500 mg twice daily IV. 5. Follow up with infectious disease specialist. 6. Repeat Head CT in the am Thank you very much for referring this patient for neurological consultation. Code(s): R56.9 - UNSPECIFIED CONVULSIONS
[2019-01-02] MEDS ORDERED: levETIRAcetam 500 MG/5 ML INJECTION VIAL IVPB SCH ×2 (22:00)
[2019-01-02] MEDS: MUPIROCIN 2% TOPICAL OINTMENT FOR DECOLONIZATION NS SCH (23:45)
[2019-01-02] MEDS: CHLORHEXIDINE GLUCONATE 4% CLEANSER FOR DECOLONIZATION TP SCH (23:55)
[2019-01-03] MEDS ORDERED: PIPERACILLIN/TAZOBACTAM 3.375 GM VIAL IVPB ONE ×3 (02:35→17:20)
[2019-01-03] MEDS ORDERED: DEXTROSE 5%-WATER - 50 ML IVPB ONE ×3 (02:36→17:21)
[2019-01-03] MEDS: PIPERACILLIN/TAZOB 3.375 GM 3.375 GM in DEXTROSE 5%-WATER - 50 ML IVPB SCH ×3 (02:43→17:34)
[2019-01-03 06:15] LABS: BASO % 0.2 % (0-2.0); EOS % 0.2 % (0-4.5); HEMATOCRIT 28.3 % (32.4-45.2); HEMOGLOBIN 9.2 GM/dL (10.7-15.3); LYMPH % 7.3 % (8-40); MCH 27.2 pg (25.7-33.7); MCHC 32.6 g/dl (32.0-36.0); MEAN CELL VOLUME 83.4 fl (80-96); MEAN PLT VOLUME 8.6 fl (7.5-11.1); NEUT % 86.3 % (42.8-82.8); PLATELET COUNT 239 K/MM3 (134-434); RBC 3.39 M/mm3 (3.60-5.2); RDW 15.3 % (11.6-15.6)
[2019-01-03] MEDS: HEPARIN NA (PORCINE) 5,000 UNITS/ML 1ML VIAL SQ SCH ×3 (06:34→21:43)
[2019-01-03 06:53] LABS: ALBUMIN 2.1 g/dl (3.4-5.0); BILIRUBIN,TOTAL 0.3 mg/dL (0.2-1); BLOOD UREA NITROGEN 12.6 mg/dL (7-18); CALCIUM 8.3 mg/dL (8.5-10.1); MAGNESIUM 1.6 mg/dL (1.8-2.4); PHOSPHOROUS 2.3 mg/dL (2.5-4.9); POTASSIUM 3.3 mmol/L (3.5-5.1); TOT PROT 5.7 g/dl (6.4-8.2)
[2019-01-03] MEDS ORDERED: NAPH,MB-DB/K PH,MBDB POWDER PACKET PO ONE (07:13)
[2019-01-03] MEDS ORDERED: POTASSIUM CHLORIDE TABS 20 MEQ TABLET.ER (FP) PO ONE (07:13)
[2019-01-03] MEDS ORDERED: MAGNESIUM SULF 50% (8.12 MEQ/2 ML-1 GM VIAL) IVPB ONE (07:13)
[2019-01-03] MEDS ORDERED: POTASSIUM PHOSPHATE 15 MM in DEXTROSE 5%-WATER - 250 ML IVPB ONE (09:00)
[2019-01-03] MEDS: levETIRAcetam 500 MG/5 ML INJECTION VIAL IVPB SCH ×2 (09:24→21:43)
[2019-01-03] MEDS: KCL 10 MEQ IVPB 10 MEQ/100 ML INFUS.BAG IVPB SCH ×3 (09:25→13:10)
[2019-01-03] MEDS: MUPIROCIN 2% TOPICAL OINTMENT FOR DECOLONIZATION NS SCH ×2 (09:25→21:43)
[2019-01-03] MEDS: FLUCONAZOLE 200 MG/D5W 100 ML IVPB SCH (09:25)
--- NOTE | 2019-01-03 11:38 | PN ---
Physical Exam: SUBJECTIVE: Patient seen and examined at bedside. Is able to open her eyes but does not respond to commands. OBJECTIVE: Vital Signs Period Temp Pulse Resp BP Sys/Varner Pulse Ox Last 24 Hr 94.4 F-98.7 F 68-101 12-25 89-120/63-75 97-100 GENERAL: A&Ox0, no acute distress EYES: PERRLA ENT: Dry mucus membranes NECK: No JVD LUNGS: CTA, no wheezes HEART: RRR, no murmurs ABDOMEN: Soft, nontender, BS present MUSCULOSKELETAL: contracted extremities EXTREMITIES: 2+ pulses, no edema. NEUROLOGICAL: unable to assess due to mental status Laboratory Results - last 24 hr 01/02/19 01/02/19 01/02/19 12:47 12:55 17:49 WBC RBC Hgb Hct MCV MCH MCHC RDW Plt Count MPV Absolute Neuts (auto) Neutrophils % Lymphocytes % Monocytes % Eosinophils % Basophils % Nucleated RBC % Anticoagulation Therapy No Result Required. Puncture Site Right radial ABG pH 7.39 ABG pCO2 at Pt Temp 42.4 ABG pO2 at Pt Temp 204 H ABG HCO3 24.9 ABG O2 Sat (Measured) 99.6 H ABG O2 Content 17.7 ABG Base Excess 0.3 Wilbert Test Positive O2 Delivery Device No Result Required. Oxygen Flow Rate Yes Vent Mode No Result Required. Vent Rate No Result Required. Mechanical Rate No Result Required. Pressure Support Vent No Result Required. Sodium Potassium Chloride Carbon Dioxide Anion Gap BUN Creatinine Est GFR (CKD-EPI)AfAm Est GFR (CKD-EPI)NonAf POC Glucometer 143 172 Random Glucose Calcium Phosphorus Magnesium Total Bilirubin AST ALT Alkaline Phosphatase Total Protein Albumin Vitamin B12 TSH 01/02/19 01/03/19 01/03/19 18:00 05:10 05:10 WBC 14.0 H RBC 3.39 L Hgb 9.2 L Hct 28.3 L D MCV 83.4 MCH 27.2 MCHC 32.6 RDW 15.3 Plt Count 239 MPV 8.6 Absolute Neuts (auto) 12.1 H Neutrophils % 86.3 H Lymphocytes % 7.3 L D Monocytes % 6.0 Eosinophils % 0.2 D Basophils % 0.2 Nucleated RBC % 0 Anticoagulation Therapy Puncture Site ABG pH ABG pCO2 at Pt Temp ABG pO2 at Pt Temp ABG HCO3 ABG O2 Sat (Measured) ABG O2 Content ABG Base Excess Wilbert Test O2 Delivery Device Oxygen Flow Rate Vent Mode Vent Rate Mechanical Rate Pressure Support Vent Sodium 146 H Potassium 3.3 L Chloride 113 H Carbon Dioxide 28 Anion Gap 5 L BUN 12.6 Creatinine 1.0 Est GFR (CKD-EPI)AfAm 65.64 Est GFR (CKD-EPI)NonAf 56.64 POC Glucometer Random Glucose 172 H Calcium 8.3 L Phosphorus 2.3 L Magnesium 1.6 L Total Bilirubin 0.3 AST 15 ALT 9 L Alkaline Phosphatase 77 Total Protein 5.7 L Albumin 2.1 L Vitamin B12 1900 H TSH 0.31 L Active Medications Generic Name Dose Route Start Last Admin Trade Name Freq PRN Reason Stop Dose Admin Chlorhexidine Gluconate 1 applic 01/02/19 23:27 01/02/19 23:55 Hibiclens For Decolonization - TP 1 applic HS KRYSTEN Administration Heparin Sodium (Porcine) 5,000 unit 01/03/19 06:00 01/03/19 06:34 Heparin - SQ 5,000 unit TID KRYSTEN Administration Dextrose/Sodium Chloride 1,000 mls @ 100 mls/hr 01/02/19 23:27 01/03/19 02:44 D5-Ns - IV 100 mls/hr ASDIR KRYSTEN Administration Fluconazole 100 mls @ 100 mls/hr 01/03/19 10:00 01/03/19 09:25 Diflucan 200 Mg/D5w Premixed Ivpb - IVPB 100 mls/hr DAILY KRYSTEN Administration Piperacillin Sod/Tazobactam 50 mls @ 100 mls/hr 01/03/19 02:00 01/03/19 09:22 Sod 3.375 gm/ Dextrose IVPB 100 mls/hr Q8H-IV KRYSTEN Administration Protocol Potassium Phosphate 15 mm/ 255 mls @ 62.5 mls/hr 01/03/19 09:00 Dextrose IVPB 01/03/19 13:04 ONCE ONE Levetiracetam 500 mg 01/03/19 10:00 01/03/19 09:24 Keppra Injection - IVPB 500 mg BID KRYSTEN Administration Mupirocin 1 applic 01/02/19 23:27 01/03/19 09:25 Bactroban Ointment (For Decolonization) - NS 01/07/19 23:26 1 applic BID KRYSTEN Administration ASSESSMENT/PLAN: 73 year old female with a history of multiple sclerosis, 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, s/p R nephrectomy, and seizure disorder admitted to the hospital for seizures with concern for non-convulsive status Neurological -still not alert -residual weakness from CVA in 2013 -seizure could be due to threshold decreasing from sepsis/antibiotic use -continue increased course of keppra @ 500 BID -neurology following Cardiovascular -no acute issues -CVP 4 -BP normal Pulmonary -no acute issues Gastrointestinal -failure to thrive -supplemental nutrition Renal -s/p nephrectomy -renal function normal ID -sepsis like picture with recurrent UTI -culture grew yeast like organism -continue zosyn, fluconazole Dispo -ok to transfer to tele Visit type - Emergency Visit Emergency Visit: No - New Patient This patient is new to me today: No - Critical Care Critical Care patient: Yes Total Critical Care Time (in minutes): 36 Critical Care Statement: The care of this patient involved high complexity decision making to prevent further life threatening deterioration of the patient 's condition and/or to evaluate & treat vital organ system(s) failure or risk of failure. ATTENDING PHYSICIAN STATEMENT I saw and evaluated the patient. I reviewed the resident's note and discussed the case with the resident. I agree with the resident's findings and plan as documented. SUBJECTIVE: OBJECTIVE: ASSESSMENT AND PLAN:
--- NOTE | 2019-01-03 12:24 | PN ---
Teaching Attending Note Name of Resident: Denton Alexis ATTENDING PHYSICIAN STATEMENT I saw and evaluated the patient. I reviewed the resident's note and discussed the case with the resident. I agree with the resident's findings and plan as documented. SUBJECTIVE: Patient seen and examined. Lethargic but arousable. Remains confused and not able to provide a history. No pressors. No seizure activity noted overnight. Intake & Output 12/31/18 01/01/19 01/02/19 01/03/19 23:59 23:59 23:59 23:59 Intake Total 1850 1195 Output Total 0 Balance 1850 1195 Weight 88 lb 12.8 oz Last Vital Signs Temp Pulse Resp BP Pulse Ox 97.4 F L 75 12 119/75 100 01/03/19 08:00 01/03/19 10:00 01/03/19 10:00 01/03/19 10:00 01/03/19 10:00 Active Medications Chlorhexidine Gluconate (Hibiclens For Decolonization -) 1 applic TP HS [facility] Last Admin: 01/02/19 23:55 Dose: 1 applic Heparin Sodium (Porcine) (Heparin -) 5,000 unit SQ TID KRYSTEN Last Admin: 01/03/19 06:34 Dose: 5,000 unit Dextrose/Sodium Chloride (D5-Ns -) 1,000 mls @ 100 mls/hr IV ASDIR [facility] Last Admin: 01/03/19 02:44 Dose: 100 mls/hr Fluconazole (Diflucan 200 Mg/D5w Premixed Ivpb -) 100 mls @ 100 mls/hr IVPB DAILY [facility] Last Admin: 01/03/19 09:25 Dose: 100 mls/hr Piperacillin Sod/Tazobactam (Sod 3.375 gm/ Dextrose) 50 mls @ 100 mls/hr IVPB Q8H-IV KRYSTEN; Protocol Last Admin: 01/03/19 09:22 Dose: 100 mls/hr Potassium Phosphate 15 mm/ (Dextrose) 255 mls @ 62.5 mls/hr IVPB ONCE ONE Stop: 01/03/19 13:04 Last Admin: 01/03/19 11:50 Dose: 62.5 mls/hr Levetiracetam (Keppra Injection -) 500 mg IVPB BID [facility] Last Admin: 01/03/19 09:24 Dose: 500 mg Mupirocin (Bactroban Ointment (For Decolonization) -) 1 applic NS BID KRYSTEN Stop: 01/07/19 23:26 Last Admin: 01/03/19 09:25 Dose: 1 applic Gen: lethargic, breathing non-labored Heart: RRR Lung: decreased breath sounds at the bases Abd: soft, nontender Ext: left arm contracted Laboratory Results - last 24 hr 01/02/19 01/02/19 01/02/19 12:47 12:55 17:49 WBC RBC Hgb Hct MCV MCH MCHC RDW Plt Count MPV Absolute Neuts (auto) Neutrophils % Lymphocytes % Monocytes % Eosinophils % Basophils % Nucleated RBC % Anticoagulation Therapy No Result Required. Puncture Site Right radial ABG pH 7.39 ABG pCO2 at Pt Temp 42.4 ABG pO2 at Pt Temp 204 H ABG HCO3 24.9 ABG O2 Sat (Measured) 99.6 H ABG O2 Content 17.7 ABG Base Excess 0.3 Wilbert Test Positive O2 Delivery Device No Result Required. Oxygen Flow Rate Yes Vent Mode No Result Required. Vent Rate No Result Required. Mechanical Rate No Result Required. Pressure Support Vent No Result Required. Sodium Potassium Chloride Carbon Dioxide Anion Gap BUN Creatinine Est GFR (CKD-EPI)AfAm Est GFR (CKD-EPI)NonAf POC Glucometer 143 172 Random Glucose Calcium Phosphorus Magnesium Total Bilirubin AST ALT Alkaline Phosphatase Total Protein Albumin Vitamin B12 TSH 01/02/19 01/03/19 01/03/19 18:00 05:10 05:10 WBC 14.0 H RBC 3.39 L Hgb 9.2 L Hct 28.3 L D MCV 83.4 MCH 27.2 MCHC 32.6 RDW 15.3 Plt Count 239 MPV 8.6 Absolute Neuts (auto) 12.1 H Neutrophils % 86.3 H Lymphocytes % 7.3 L D Monocytes % 6.0 Eosinophils % 0.2 D Basophils % 0.2 Nucleated RBC % 0 Anticoagulation Therapy Puncture Site ABG pH ABG pCO2 at Pt Temp ABG pO2 at Pt Temp ABG HCO3 ABG O2 Sat (Measured) ABG O2 Content ABG Base Excess Wilbert Test O2 Delivery Device Oxygen Flow Rate Vent Mode Vent Rate Mechanical Rate Pressure Support Vent Sodium 146 H Potassium 3.3 L Chloride 113 H Carbon Dioxide 28 Anion Gap 5 L BUN 12.6 Creatinine 1.0 Est GFR (CKD-EPI)AfAm 65.64 Est GFR (CKD-EPI)NonAf 56.64 POC Glucometer Random Glucose 172 H Calcium 8.3 L Phosphorus 2.3 L Magnesium 1.6 L Total Bilirubin 0.3 AST 15 ALT 9 L Alkaline Phosphatase 77 Total Protein 5.7 L Albumin 2.1 L Vitamin B12 1900 H TSH 0.31 L ASSESSMENT AND PLAN: Breakthrough Seizure UTI Sepsis Multiple Sclerosis h/o CVA h/o Right Nephrectomy - AEDs - Neuro checks - EEG - Seizure precautions - ABX per ID - f/u final cultures - IVF - monitor urine output, creatinine - aspiration precautions - Floor Dr Gao
--- NOTE | 2019-01-03 14:11 | PN ---
Progress Note, Physician History of Present Illness: NOT RESPONSIVE TO VERBAL STIMULUS HYPOTHERMIC; BP IMPROVED WBC REMAINS ELEVATED BC PRELIM (-) - Current Medication List Current Medications: Active Medications Chlorhexidine Gluconate (Hibiclens For Decolonization -) 1 applic TP HS [facility] Last Admin: 01/02/19 23:55 Dose: 1 applic Heparin Sodium (Porcine) (Heparin -) 5,000 unit SQ TID KRYSTEN Last Admin: 01/03/19 06:34 Dose: 5,000 unit Dextrose/Sodium Chloride (D5-Ns -) 1,000 mls @ 100 mls/hr IV ASDIR KRYSTEN Last Admin: 01/03/19 02:44 Dose: 100 mls/hr Fluconazole (Diflucan 200 Mg/D5w Premixed Ivpb -) 100 mls @ 100 mls/hr IVPB DAILY [facility] Last Admin: 01/03/19 09:25 Dose: 100 mls/hr Piperacillin Sod/Tazobactam (Sod 3.375 gm/ Dextrose) 50 mls @ 100 mls/hr IVPB Q8H-IV KRYSTEN; Protocol Last Admin: 01/03/19 09:22 Dose: 100 mls/hr Levetiracetam (Keppra Injection -) 500 mg IVPB BID [facility] Last Admin: 01/03/19 09:24 Dose: 500 mg Mupirocin (Bactroban Ointment (For Decolonization) -) 1 applic NS BID [facility] Stop: 01/07/19 23:26 Last Admin: 01/03/19 09:25 Dose: 1 applic - Objective Vital Signs: Vital Signs Temperature 97.4 F L 01/03/19 08:00 Pulse Rate 75 01/03/19 12:00 Respiratory Rate 12 01/03/19 10:00 Blood Pressure 123/79 01/03/19 12:00 O2 Sat by Pulse Oximetry (%) 100 01/03/19 10:00 Constitutional: Yes: No Distress Cardiovascular: Yes: Regular Rate and Rhythm, S1, S2 Respiratory: Yes: CTA Bilaterally Gastrointestinal: Yes: Normal Bowel Sounds, Soft. No: Tenderness Edema: No Labs: CBC, BMP 01/03/19 05:10 01/03/19 05:10 INR, PTT INR 0.97 (0.83-1.09) 01/02/19 03:40 Assessment/Plan SEPSIS UTI R/O SEPSIS SECONDARY TO SOURCE S/P SEIZURE HX NEPHRECTOMY MS CONTINUE ZOSYN/ FLUCONAZOLE SUPPORTIVE MEASURES
--- NOTE | 2019-01-03 17:37 | PN ---
Teaching Attending Note Name of Resident: Lu Gurrola ATTENDING PHYSICIAN STATEMENT I saw and evaluated the patient. I reviewed the resident's note and discussed the case with the resident. I agree with the resident's findings and plan as documented. SUBJECTIVE: no events OBJECTIVE: awake, not responsive, resists eye opening. L gaze CV: RRR, no MRG Lungs: decreased breath sounds, Abd: soft, nl BD, NT Ext : LUE contraction at level of elbow, wrist and hand. muscle atrophy. ASSESSMENT AND PLAN: 73 y/o lady with h/o MS, CVA s/p L sided weakness and contraction, R nephrectomy , PNA, constipation , Seizure disorder 05/12, septic shock form UTI 11/10, who presented from home with seizure activity. 1- Seizure activity:r/o non convulsive status - EEG done today. no results yet. -case d/w Dr. Hough who will read the EEG shortly. Recs to add Vimpat 100 BID. - cont Keppra 500 BID 2- Sepsis: due to UTI. - heating blanket for hypothermia PRN - cont zosyn and fluconazol pending urine and blood cx - cont IVF . 3- Hypoglycemia: resolved with D5 containing IVF. cont for now pending improvement in mental status 4- Low TSH: could be due to sick euthyroid syndrome in setting of infection Code status, full code for now. d/w daughter by dr. Narayanan.
--- NOTE | 2019-01-03 17:57 | PN ---
Physical Exam: SUBJECTIVE: Patient seen and examined at the bedside. Pt lowered from 2l NC to room air. She is nonverbal AOX0 and non-arousable. OBJECTIVE: Vital Signs Period Temp Pulse Resp BP Sys/Varner Pulse Ox Last 24 Hr 94.6 F-98.7 F 68-101 12-25 103-124/63-79 97-100 GENERAL: The patient is non-arousable HEAD: Normal with no signs of trauma. EYES: left lateral gaze NECK: supple. LUNGS: Breath sounds decreased. HEART: Regular rate and rhythm, S1, S2 without murmur, rub or gallop. ABDOMEN: Soft, nontender, nondistended, normoactive bowel sounds, no guarding, no rebound. EXTREMITIES: no edema. Laboratory Results - last 24 hr 01/02/19 01/02/19 01/02/19 03:40 17:49 18:00 WBC RBC Hgb Hct MCV MCH MCHC RDW Plt Count MPV Absolute Neuts (auto) Neutrophils % Lymphocytes % Monocytes % Eosinophils % Basophils % Nucleated RBC % Sodium 145 Potassium 4.0 Chloride 110 H Carbon Dioxide 24 Anion Gap 10 BUN 15.2 Creatinine 1.1 Est GFR (CKD-EPI)AfAm 58.50 Est GFR (CKD-EPI)NonAf 50.47 POC Glucometer 172 Random Glucose 58 L Calcium 9.9 Phosphorus 3.4 Magnesium 2.1 Total Bilirubin 0.4 AST 21 ALT 15 Alkaline Phosphatase 107 Creatine Kinase 166 Creatine Kinase Index 2.7 CK-MB (CK-2) 4.5 H Troponin I < 0.02 Total Protein 8.0 Albumin 3.0 L Vitamin B12 1900 H TSH 01/03/19 01/03/19 05:10 05:10 WBC 14.0 H RBC 3.39 L Hgb 9.2 L Hct 28.3 L D MCV 83.4 MCH 27.2 MCHC 32.6 RDW 15.3 Plt Count 239 MPV 8.6 Absolute Neuts (auto) 12.1 H Neutrophils % 86.3 H Lymphocytes % 7.3 L D Monocytes % 6.0 Eosinophils % 0.2 D Basophils % 0.2 Nucleated RBC % 0 Sodium 146 H Potassium 3.3 L Chloride 113 H Carbon Dioxide 28 Anion Gap 5 L BUN 12.6 Creatinine 1.0 Est GFR (CKD-EPI)AfAm 65.64 Est GFR (CKD-EPI)NonAf 56.64 POC Glucometer Random Glucose 172 H Calcium 8.3 L Phosphorus 2.3 L Magnesium 1.6 L Total Bilirubin 0.3 AST 15 ALT 9 L Alkaline Phosphatase 77 Creatine Kinase Creatine Kinase Index CK-MB (CK-2) Troponin I Total Protein 5.7 L Albumin 2.1 L Vitamin B12 TSH 0.31 L Active Medications Generic Name Dose Route Start Last Admin Trade Name Freq PRN Reason Stop Dose Admin Chlorhexidine Gluconate 1 applic 01/02/19 23:27 01/02/19 23:55 Hibiclens For Decolonization - TP 1 applic HS KRYSTEN Administration Heparin Sodium (Porcine) 5,000 unit 01/03/19 06:00 01/03/19 14:29 Heparin - SQ 5,000 unit TID KRYSTEN Administration Dextrose/Sodium Chloride 1,000 mls @ 100 mls/hr 01/02/19 23:27 01/03/19 02:44 D5-Ns - IV 100 mls/hr ASDIR KRYSTEN Administration Fluconazole 100 mls @ 100 mls/hr 01/03/19 10:00 01/03/19 09:25 Diflucan 200 Mg/D5w Premixed Ivpb - IVPB 100 mls/hr DAILY KRYSTEN Administration Piperacillin Sod/Tazobactam 50 mls @ 100 mls/hr 01/03/19 02:00 01/03/19 17:34 Sod 3.375 gm/ Dextrose IVPB 100 mls/hr Q8H-IV KRYSTEN Administration Protocol Lacosamide 100 mg 01/03/19 18:00 Vimpat Injection - IVPB Q12H KRYSTEN Levetiracetam 500 mg 01/03/19 10:00 01/03/19 09:24 Keppra Injection - IVPB 500 mg BID KRYSTEN Administration Mupirocin 1 applic 01/02/19 23:27 01/03/19 09:25 Bactroban Ointment (For Decolonization) - NS 01/07/19 23:26 1 applic BID KRYSTEN Administration ASSESSMENT/PLAN: 73 year old female with a history of multiple sclerosis, 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 #Seizure activity ? non convulsive status - Dr. Greene recommends EEG (not done yet) tried to get in touch with his service and left a message for prompt reading of study. -He recommends continuing keppra 500 BID, to add Vimpat 100 BID, CT negative from this AM, prolactin pending. #Urosepsis - heating blanket for hypothermia PRN, d/c at the moment temp 97.7 - cont zosyn and fluconazole pending more specific urine culture - cont IVF . #? sick euthyroid syndrome from urosepsis - TSH low - ordered FT3,T4, Total T3. #FEN - D51/2NS - will continue to monitor electrolytes especially, MG, K, PO4 which have been repleted as necessary '- nutrition is bieng given as puree diet and D5. DVT PPX: on heparin 5000 SQ Code status, full code for now. d/w daughter by dr. Narayanan. Visit type - Emergency Visit Emergency Visit: No - New Patient This patient is new to me today: Yes Date on this admission: 01/03/19 - Critical Care Critical Care patient: Yes Total Critical Care Time (in minutes): 45 Critical Care Statement: The care of this patient involved high complexity decision making to prevent further life threatening deterioration of the patient 's condition and/or to evaluate & treat vital organ system(s) failure or risk of failure. - Discharge Referral Referred to [facility] No ATTENDING PHYSICIAN STATEMENT I saw and evaluated the patient. I reviewed the resident's note and discussed the case with the resident. I agree with the resident's findings and plan as documented. SUBJECTIVE: OBJECTIVE: ASSESSMENT AND PLAN:
[2019-01-03] MEDS: Lacosamide 200 MG/20 ML VIAL IVPB SCH (21:43)
[2019-01-03] MEDS: CHLORHEXIDINE GLUCONATE 4% CLEANSER FOR DECOLONIZATION TP SCH (21:43)
--- NOTE | 2019-01-03 22:55 | PN ---
Progress Note (short form) - Note Progress Note: events noted chart reviewed Noted prior notes from manager mission and domenico ID sp EEG done could not access the machine to read the EEG Added Delfino Spoke to RN; patient arousable with gaze and no sp movements does not follow commands Will attempt reading [facility] EEG in the am if I can access [facility] study Obtain MRI brain if medically stable continue Laurora Will follow up Amara Hough Neurology Problem List - Problems (1) Seizure Code(s): R56.9 - UNSPECIFIED CONVULSIONS
[2019-01-04] MEDS ORDERED: DEXTROSE 5%-WATER - 50 ML IVPB ONE ×3 (00:21→19:32)
[2019-01-04] MEDS ORDERED: PIPERACILLIN/TAZOBACTAM 3.375 GM VIAL IVPB ONE ×3 (00:21→19:31)
[2019-01-04] MEDS: PIPERACILLIN/TAZOB 3.375 GM 3.375 GM in DEXTROSE 5%-WATER - 50 ML IVPB SCH ×3 (01:38→18:30)
[2019-01-04 06:42] LABS: BASO % 0.4 % (0-2.0); EOS % 1.3 % (0-4.5); HEMATOCRIT 28.7 % (32.4-45.2); HEMOGLOBIN 9.5 GM/dL (10.7-15.3); LYMPH % 17.5 % (8-40); MCH 27.9 pg (25.7-33.7); MEAN CELL VOLUME 84.5 fl (80-96); MEAN PLT VOLUME 8.6 fl (7.5-11.1); MONO % 9.8 % (3.8-10.2); PLATELET COUNT 213 K/MM3 (134-434); RBC 3.39 M/mm3 (3.60-5.2); RDW 15.4 % (11.6-15.6); WHITE BLOOD COUNT 7.1 K/mm3 (4.0-10.0)
[2019-01-04] MEDS: Lacosamide 200 MG/20 ML VIAL IVPB SCH ×2 (06:55→19:00)
[2019-01-04] MEDS: HEPARIN NA (PORCINE) 5,000 UNITS/ML 1ML VIAL SQ SCH ×3 (06:55→21:47)
[2019-01-04 08:07] LABS: BILIRUBIN,TOTAL 0.4 mg/dL (0.2-1); BLOOD UREA NITROGEN 7.6 mg/dL (7-18); CALCIUM 8.4 mg/dL (8.5-10.1); MAGNESIUM 2.2 mg/dL (1.8-2.4); PHOSPHOROUS 3.1 mg/dL (2.5-4.9); POTASSIUM 3.5 mmol/L (3.5-5.1); TOT PROT 5.7 g/dl (6.4-8.2)
--- NOTE | 2019-01-04 08:51 | PN ---
Teaching Attending Note Name of Resident: Fouzia Jay ATTENDING PHYSICIAN STATEMENT I saw and evaluated the patient. I reviewed the resident's note and discussed the case with the resident. I agree with the resident's findings and plan as documented. SUBJECTIVE: no events over night . OBJECTIVE: awake, not responsive, blinks , does not track, but moves her eyes right and left spontaneously. does not follow commands . No smacking movements . CV: RRR, no MRG Lungs: decreased breath sounds, clear anteriorly Abd: soft, nl BD, NT Ext : LUE contraction at level of elbow, wrist and hand. no edema on LE. contractiona t level of knees muscle atrophy. ASSESSMENT AND PLAN: 73 y/o lady with h/o MS, CVA s/p L sided weakness and contraction, R nephrectomy , PNA, constipation , Seizure disorder 05/12, septic shock form UTI 11/10, who presented from home with seizure activity. 1- Seizure activity:r/o non convulsive status - EEG not read yet -cont Vimpat and Keppra 2- Encephalopathy" ? due to non convulsive status epilepticus, vs stroke, Vs worsening MS plaques . r/o fungal mets to brain. - MRI of the brain with contrast - monitor with advancing her seizure meds 3- Sepsis: due to UTI. - cont heating blanket for hypothermia - cont zosyn and fluconazol . - urine is growing yeast like organism. Identification is pending - cont IVF, change to D51/2 NS 3- Hypoglycemia:cont D5 containing fluids 4- Dehydration : hypernatremia. change IVF to D51/2 NS . repeat Na level . 5- Anb TFTs: repeat when in a steady state as out pt Code status, full code for now. hold off transfer to floor until EEg is read to r/o status epilepticus
[2019-01-04] MEDS ORDERED: DEXTROSE 5%-0.45% SALINE 1,000 ML IV SCH (09:00)
--- NOTE | 2019-01-04 09:19 | PN ---
Progress Note (short form) - Note Progress Note: remains hypothermic nonverbal Vital Signs Period Temp Pulse Resp BP Sys/Varner Pulse Ox Last 24 Hr 95.5 F-97.6 F 67-92 11- 111-148/65-86 100-100 cor-rrr llungs decreased bs at bases abd soft, ext contracted CBC, BMP 01/04/19 05:00 01/04/19 05:00 Microbiology 01/02/19 06:30 Urine - Urine - Catheterized Yeast/Fungus Identification - Preliminary 01/02/19 11:20 Blood - Peripheral Venous Blood Culture - Preliminary NO GROWTH OBTAINED AFTER 24 HOURS, INCUBATION TO CONTINUE FOR 4 DAYS. 01/02/19 11:15 Blood - Peripheral Venous Blood Culture - Preliminary NO GROWTH OBTAINED AFTER 24 HOURS, INCUBATION TO CONTINUE FOR 4 DAYS. 01/02/19 06:30 Urine - Urine - Catheterized Urine Culture - Final Yeast Like Organism a/p recurrent seizures- for MRI UTI- continue zosyn/fluconazole wbc now normal persistent hypothermia- ?central,check am cortisol
--- NOTE | 2019-01-04 09:44 | PN ---
Physical Exam: SUBJECTIVE: Patient seen and examined at bedside this morning. Patient is awake , with fixed gaze on the right. R arm noted to be twitching. Overnight, patient was hypothermic, and was put on rodrick hugger. No seizures reported overnight. OBJECTIVE: Vital Signs Temperature 95.5 F L 01/04/19 06:00 Pulse Rate 76 01/04/19 06:00 Respiratory Rate 15 01/04/19 06:00 Blood Pressure 148/86 01/04/19 06:00 O2 Sat by Pulse Oximetry (%) 100 01/03/19 21:00 GENERAL: The patient is awake, with gaze fixed on the right. Does not follow commands. Not in acute distress. EYES: Pupils reactive to light bilaterally, sclera anicteric, conjunctiva clear. NECK: Trachea midline, full range of motion, supple. LUNGS: Breath sounds equal, clear to auscultation anteriorly HEART: Regular rate and rhythm, S1, S2 without murmur, rub or gallop. ABDOMEN: Soft, does not grimace on palpation, nondistended, normoactive bowel sounds. EXTREMITIES: +LUE contracted. LE: 2+pulses, no peripheral edema NEUROLOGICAL: Does not follow commands. Gaze fixed to the right, spontaneously moves to left, but does not track. R arm twitching noted. PSYCH: Normal mood, normal affect. SKIN: Warm, dry, normal turgor, no rashes or lesions noted Laboratory Results - last 24 hr 01/02/19 01/02/19 01/03/19 03:40 20:35 05:10 WBC RBC Hgb Hct MCV MCH MCHC RDW Plt Count MPV Absolute Neuts (auto) Neutrophils % Lymphocytes % Monocytes % Eosinophils % Basophils % Nucleated RBC % Sodium 145 Potassium 4.0 Chloride 110 H Carbon Dioxide 24 Anion Gap 10 BUN 15.2 Creatinine 1.1 Est GFR (CKD-EPI)AfAm 58.50 Est GFR (CKD-EPI)NonAf 50.47 Random Glucose 58 L Calcium 9.9 Phosphorus 3.4 Magnesium 2.1 Total Bilirubin 0.4 AST 21 ALT 15 Alkaline Phosphatase 107 Creatine Kinase 166 Creatine Kinase Index 2.7 CK-MB (CK-2) 4.5 H Troponin I < 0.02 Total Protein 8.0 Albumin 3.0 L Free T4 Prolactin 20.9 20.4 01/04/19 01/04/19 05:00 05:00 WBC 7.1 RBC 3.39 L Hgb 9.5 L Hct 28.7 L MCV 84.5 MCH 27.9 MCHC 33.0 RDW 15.4 Plt Count 213 MPV 8.6 Absolute Neuts (auto) 5.1 Neutrophils % 71.0 Lymphocytes % 17.5 D Monocytes % 9.8 Eosinophils % 1.3 D Basophils % 0.4 Nucleated RBC % 0 Sodium 151 H Potassium 3.5 Chloride 118 H Carbon Dioxide 27 Anion Gap 6 L BUN 7.6 Creatinine 1.0 Est GFR (CKD-EPI)AfAm 65.64 Est GFR (CKD-EPI)NonAf 56.64 Random Glucose 135 H Calcium 8.4 L Phosphorus 3.1 Magnesium 2.2 Total Bilirubin 0.4 AST 17 ALT 9 L Alkaline Phosphatase 90 Creatine Kinase Creatine Kinase Index CK-MB (CK-2) Troponin I Total Protein 5.7 L Albumin 2.0 L Free T4 1.08 Prolactin Active Medications Generic Name Dose Route Start Last Admin Trade Name Freq PRN Reason Stop Dose Admin Chlorhexidine Gluconate 1 applic 01/02/19 23:27 01/03/19 21:43 Hibiclens For Decolonization - TP 1 applic HS KRYSTEN Administration Heparin Sodium (Porcine) 5,000 unit 01/03/19 06:00 01/04/19 06:55 Heparin - SQ 5,000 unit TID KRYSTEN Administration Fluconazole 100 mls @ 100 mls/hr 01/03/19 10:00 01/03/19 09:25 Diflucan 200 Mg/D5w Premixed Ivpb - IVPB 100 mls/hr DAILY KRYSTEN Administration Piperacillin Sod/Tazobactam 50 mls @ 100 mls/hr 01/03/19 02:00 01/04/19 01:38 Sod 3.375 gm/ Dextrose IVPB 100 mls/hr Q8H-IV KRYSTEN Administration Protocol Dextrose/Sodium Chloride 1,000 mls @ 75 mls/hr 01/04/19 09:00 D5-1/2ns - IV ASDIR KRYSTEN Lacosamide 100 mg 01/03/19 18:00 01/04/19 06:55 Vimpat Injection - IVPB 100 mg Q12H KRYSTEN Administration Levetiracetam 500 mg 01/03/19 10:00 01/03/19 21:43 Keppra Injection - IVPB 500 mg BID KRYSTEN Administration Mupirocin 1 applic 01/02/19 23:27 01/03/19 21:43 Bactroban Ointment (For Decolonization) - NS 01/07/19 23:26 1 applic BID KYRSTEN Administration ASSESSMENT/PLAN: Patient is a 73 year old female with past medical history of MS, CVA (2013, with left sided residual deficits, LUE contracture), R nephrectomy, presented to the ED due to seizures. #Sepsis 2/2 UTI -UA: WBC 7133, Bacteria 4K -IV Zosyn 3.375gm q8 day 3 -IV D5/NS @75cc/hr -patient remains hypothermic, am cortisol to rule out central cause -urine growing yeast, pending identification of organism -heating blanket PRN -Maintain MAP >65 -O2 supplement PRN to keep SpO2>90% -ID (Dr. Rosa) consulted. #Seizures -rule out nonconvulsive status epilepticus -Will continue Keppra 500mg IVPB BID -Seizure precautions -EEG done, pending final read -Neurology (Dr. Hough) consulted. #Acute metabolic encephalopathy -likely 2/2 seizure vs stroke vs progressive MS -Brain MRI -IVF, antibiotics #Hypoglycemia -likely from poor oral intake -Continue D5/NS IVF #Hx of MS -Speech and swallow eval done on previous admission #FEN -IV D5/Ns @100cc/hr -Electrolytes wnl, routine bmp monitoring -Keep NPO for now #Prophylaxis -Heparin 5000u sq tid #Disposition -ICU for closer monitoring -full code Visit type - Emergency Visit Emergency Visit: Yes ED Registration Date: 01/02/19 Care time: The patient presented to the Emergency Department on the above date and was hospitalized for further evaluation of their emergent condition. - New Patient This patient is new to me today: Yes Date on this admission: 01/04/19 - Critical Care Critical Care patient: Yes Total Critical Care Time (in minutes): 35 Critical Care Statement: The care of this patient involved high complexity decision making to prevent further life threatening deterioration of the patient 's condition and/or to evaluate & treat vital organ system(s) failure or risk of failure. ATTENDING PHYSICIAN STATEMENT I saw and evaluated the patient. I reviewed the resident's note and discussed the case with the resident. I agree with the resident's findings and plan as documented. SUBJECTIVE: OBJECTIVE: ASSESSMENT AND PLAN:
[2019-01-04] MEDS: FLUCONAZOLE 200 MG/D5W 100 ML IVPB SCH (10:03)
[2019-01-04] MEDS: levETIRAcetam 500 MG/5 ML INJECTION VIAL IVPB SCH ×2 (10:03→21:47)
[2019-01-04] MEDS: MUPIROCIN 2% TOPICAL OINTMENT FOR DECOLONIZATION NS SCH ×2 (10:15→21:47)
--- NOTE | 2019-01-04 10:35 | PN ---
Progress Note (short form) - Note Progress Note: PULMONARY/CRITICAL CARE PROGRESS NOTE: SUBJECTIVE: Awaiting EEG results Mental status is the same Remains hypothermic Current Medications Chlorhexidine Gluconate (Hibiclens For Decolonization -) 1 applic TP HS [facility] Last Admin: 01/03/19 21:43 Dose: 1 applic Heparin Sodium (Porcine) (Heparin -) 5,000 unit SQ TID KRYSTEN Last Admin: 01/04/19 06:55 Dose: 5,000 unit Fluconazole (Diflucan 200 Mg/D5w Premixed Ivpb -) 100 mls @ 100 mls/hr IVPB DAILY KRYSTEN Last Admin: 01/04/19 10:03 Dose: 100 mls/hr Piperacillin Sod/Tazobactam (Sod 3.375 gm/ Dextrose) 50 mls @ 100 mls/hr IVPB Q8H-IV KRYSTEN; Protocol Last Admin: 01/04/19 10:02 Dose: 100 mls/hr Dextrose/Sodium Chloride (D5-1/2ns -) 1,000 mls @ 75 mls/hr IV ASDIR KRYSTEN Last Admin: 01/04/19 09:30 Dose: 75 mls/hr Lacosamide (Vimpat Injection -) 100 mg IVPB Q12H [facility] Last Admin: 01/04/19 06:55 Dose: 100 mg Levetiracetam (Keppra Injection -) 500 mg IVPB BID [facility] Last Admin: 01/04/19 10:03 Dose: 500 mg Mupirocin (Bactroban Ointment (For Decolonization) -) 1 applic NS BID KRYSTEN Stop: 01/07/19 23:26 Last Admin: 01/04/19 10:15 Dose: 1 applic Vital Signs Temp 95.5 F L 01/04/19 06:00 Pulse 76 01/04/19 06:00 Resp 15 01/04/19 06:00 BP 148/86 01/04/19 06:00 Pulse Ox 100 01/03/19 21:00 Intake & Output 01/03/19 01/04/19 01/04/19 18:59 06:59 18:59 Intake Total 1750 1450 Balance 1750 1450 Intake: IV 900 1200 D5-Ns - 1,000 ml @ 759 429 2807 mls/hr IV ASDIR KRYSTEN Rx#: [id number] IVPB 850 250 Other: Voiding Method Indwelling Catheter Indwelling Catheter # Unmeasured Voids Void 3 2 Bowel Movement No No EXAM: neuro: slowly tracks, does not follow commands HEENT: 2mm, reactive chest: clear lungs heart: RRR abd: soft, non-tender ext: contracted, no edema skin: warm, dry CBC, BMP 01/04/19 05:00 01/04/19 05:00 ASSESSMENT AND PLAN: Breakthrough Seizure UTI Sepsis Multiple Sclerosis h/o CVA h/o Right Nephrectomy Hypernatremia - AEDs - Neuro checks - EEG f/u - Seizure precautions - ABX per ID - f/u final cultures - D5W for hypernatremia - monitor urine output, creatinine - aspiration precautions Continue ICU until EEG read Pt is critically ill Critical care time 35" [facility] [employer]
[2019-01-04] MEDS: DEXTROSE 5%-NORMAL SALINE 1,000 ML IV SCH ×2 (19:00→21:48)
[2019-01-04] MEDS: CHLORHEXIDINE GLUCONATE 4% CLEANSER FOR DECOLONIZATION TP SCH (21:47)
[2019-01-05] MEDS ORDERED: PIPERACILLIN/TAZOBACTAM 3.375 GM VIAL IVPB ONE ×3 (01:22→18:09)
[2019-01-05] MEDS ORDERED: DEXTROSE 5%-WATER - 50 ML IVPB ONE ×3 (01:22→18:09)
[2019-01-05] MEDS: PIPERACILLIN/TAZOB 3.375 GM 3.375 GM in DEXTROSE 5%-WATER - 50 ML IVPB SCH ×3 (01:24→18:30)
[2019-01-05] MEDS: Lacosamide 200 MG/20 ML VIAL IVPB SCH ×2 (06:14→18:15)
[2019-01-05] MEDS: HEPARIN NA (PORCINE) 5,000 UNITS/ML 1ML VIAL SQ SCH ×3 (06:14→21:21)
--- NOTE | 2019-01-05 06:40 | PN ---
Progress Note (short form) - Note Progress Note: PULMONARY/CRITICAL CARE PROGRESS NOTE: SUBJECTIVE: -EEG not read yet -MRI done - chronic ischemic changes, hypoxic ischemic changes -Mental status unchanged -Stable overnight -Hyponatremia improved Current Medications Chlorhexidine Gluconate (Hibiclens For Decolonization -) 1 applic TP HS KRYSTEN Last Admin: 01/04/19 21:47 Dose: 1 applic Heparin Sodium (Porcine) (Heparin -) 5,000 unit SQ TID KRYSTEN Last Admin: 01/05/19 06:14 Dose: 5,000 unit Fluconazole (Diflucan 200 Mg/D5w Premixed Ivpb -) 100 mls @ 100 mls/hr IVPB DAILY KRYSTEN Last Admin: 01/04/19 10:03 Dose: 100 mls/hr Piperacillin Sod/Tazobactam (Sod 3.375 gm/ Dextrose) 50 mls @ 100 mls/hr IVPB Q8H-IV KRYSTEN; Protocol Last Admin: 01/05/19 01:24 Dose: 100 mls/hr Dextrose/Sodium Chloride (D5-Ns -) 1,000 mls @ 75 mls/hr IV ASDIR KRYSTEN Last Admin: 01/04/19 21:48 Dose: Not Given Lacosamide (Vimpat Injection -) 100 mg IVPB Q12H COUNT INCLUDES THE [facility] Last Admin: 01/05/19 06:14 Dose: 100 mg Levetiracetam (Keppra Injection -) 500 mg IVPB BID COUNT INCLUDES THE [facility] Last Admin: 01/04/19 21:47 Dose: 500 mg Mupirocin (Bactroban Ointment (For Decolonization) -) 1 applic NS BID KRYSTEN Stop: 01/07/19 23:26 Last Admin: 01/04/19 21:47 Dose: 1 applic Vital Signs Temp 97 F L 01/05/19 02:00 Pulse 64 01/05/19 02:00 Resp 16 01/05/19 02:00 BP 124/72 01/05/19 02:00 Pulse Ox 100 01/04/19 22:00 Intake & Output 01/04/19 01/04/19 01/05/19 06:59 18:59 06:59 Intake Total 1450 1100 Output Total 1100 Balance 1450 0 Weight 39.916 kg Intake: IV 1200 800 D5-1/2Ns - 1,000 ml @ 75 600 mls/hr IV ASDIR KRYSTEN Rx#: [id number] D5-Ns - 1,000 ml @ 100 1200 mls/hr IV ASDIR KRYSTEN Rx#: [id number] D5-Ns - 1,000 ml @ 75 mls 200 /hr IV ASDIR KRYSTEN Rx#: [id number] IVPB 250 300 Output: Urine 1100 Void 1100 Other: Voiding Method Indwelling Catheter Incontinent # Unmeasured Voids Void 2 2 Bowel Movement No Height 5 ft 3 in Body Mass Index (BMI) 15.5 EXAM: neuro: slowly tracks, does not follow commands HEENT: 2mm, reactive chest: clear lungs heart: RRR abd: soft, non-tender ext: contracted, no edema skin: warm, dry CBC, BMP 01/05/19 05:35 01/05/19 05:35 ASSESSMENT AND PLAN: Breakthrough Seizure UTI Sepsis Multiple Sclerosis h/o CVA h/o Right Nephrectomy Hypernatremia - AEDs - Neuro checks - EEG f/u - Seizure precautions - ABX per ID - f/u final cultures - D5W for hypernatremia - monitor urine output, creatinine - aspiration precautions Transfer 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
[2019-01-05 06:53] LABS: BASO % 0.6 % (0-2.0); EOS % 1.4 % (0-4.5); HEMATOCRIT 28.9 % (32.4-45.2); HEMOGLOBIN 9.5 GM/dL (10.7-15.3); LYMPH % 22.1 % (8-40); MCH 27.4 pg (25.7-33.7); MCHC 32.8 g/dl (32.0-36.0); MEAN CELL VOLUME 83.5 fl (80-96); MEAN PLT VOLUME 8.6 fl (7.5-11.1); MONO % 10.8 % (3.8-10.2); NEUT % 65.1 % (42.8-82.8); PLATELET COUNT 254 K/MM3 (134-434); RBC 3.46 M/mm3 (3.60-5.2); RDW 15.4 % (11.6-15.6); WHITE BLOOD COUNT 5.4 K/mm3 (4.0-10.0)
[2019-01-05 07:40] LABS: CALCIUM 8.7 mg/dL (8.5-10.1); CREATININE 0.9 mg/dL (0.55-1.3); MAGNESIUM 1.9 mg/dL (1.8-2.4); POTASSIUM 3.4 mmol/L (3.5-5.1)
[2019-01-05] MEDS: KCL 10 MEQ IVPB 10 MEQ/100 ML INFUS.BAG IVPB SCH ×2 (09:00→10:53)
--- NOTE | 2019-01-05 10:25 | PN ---
Progress Note (short form) - Note Progress Note: Subjective: No events over night Objective: Vital Signs: Last Vital Signs Temp Pulse Resp BP Pulse Ox 98.7 F 89 21 H 142/88 100 01/05/19 06:00 01/05/19 06:00 01/05/19 06:00 01/05/19 06:00 01/04/19 22:00 Laboratory Results - last 24 hr 01/04/19 01/04/19 01/04/19 05:00 05:00 15:50 WBC RBC Hgb Hct MCV MCH MCHC RDW Plt Count MPV Absolute Neuts (auto) Neutrophils % Lymphocytes % Monocytes % Eosinophils % Basophils % Nucleated RBC % Sodium 145 Potassium Chloride Carbon Dioxide Anion Gap BUN Creatinine Est GFR (CKD-EPI)AfAm Est GFR (CKD-EPI)NonAf Random Glucose Calcium Phosphorus Magnesium Free T3 1.5 L Total T3 59.00 L 01/05/19 01/05/19 01/05/19 02:00 05:35 05:35 WBC 5.4 RBC 3.46 L Hgb 9.5 L Hct 28.9 L MCV 83.5 MCH 27.4 MCHC 32.8 RDW 15.4 Plt Count 254 MPV 8.6 Absolute Neuts (auto) 3.5 Neutrophils % 65.1 Lymphocytes % 22.1 D Monocytes % 10.8 H Eosinophils % 1.4 Basophils % 0.6 Nucleated RBC % 0 Sodium 145 144 Potassium 3.4 L Chloride 111 H Carbon Dioxide 28 Anion Gap 5 L BUN 5.0 L Creatinine 0.9 Est GFR (CKD-EPI)AfAm 74.56 Est GFR (CKD-EPI)NonAf 64.33 Random Glucose 104 Calcium 8.7 Phosphorus 3.0 Magnesium 1.9 Free T3 Total T3 Physical Exam: awake, not responsive, blinks , does not track. does not follow commands . CV: RRR, no MRG Lungs: decreased breath sounds, clear anteriorly Abd: soft, nl BD, NT Ext : LUE contraction at level of elbow, wrist and hand. no edema on LE contraction at level of knees muscle atrophy. ASSESSMENT AND PLAN: 73 y/o lady with h/o MS, CVA s/p L sided weakness and contraction, R nephrectomy , PNA, constipation , Seizure disorder 05/12, septic shock form UTI 11/10, who presented from home with seizure activity. 1- Seizure activity:r/o non convulsive status - EEG not read yet . Spoke to Dr. Hough last night . -cont Vimpat and Keppra 2- Encephalopathy" ? due to non convulsive status epilepticus, vs stroke, Vs worsening MS plaques . r/o fungal mets to brain. - MRI of the brain with contrast done but reading is pending - EEG read pending 3- Sepsis: due to UTI. - cont zosyn and fluconazol . - urine is growing yeast like organism. Identification is pending - hypothermia resolved. Am cortisol pending - cont IVF 3- Hypoglycemia: resolved. cont D5 containing fluids 4- Dehydration :improved. cont D5NS ( changed last night due to rapid drop in Na ) 5- Anb TFTs: repeat when in a steady state as out pt 6- replete K Code status, full code for now. Visit type - Emergency Visit Emergency Visit: Yes ED Registration Date: 01/02/19 Care time: The patient presented to the Emergency Department on the above date and was hospitalized for further evaluation of their emergent condition. - New Patient This patient is new to me today: No - Critical Care Critical Care patient: No
[2019-01-05] MEDS ORDERED: KCL 10 MEQ IVPB 10 MEQ/100 ML INFUS.BAG IVPB SCH (10:30)
[2019-01-05] MEDS: FLUCONAZOLE 200 MG/D5W 100 ML IVPB SCH (10:51)
[2019-01-05] MEDS: levETIRAcetam 500 MG/5 ML INJECTION VIAL IVPB SCH ×2 (10:52→21:21)
[2019-01-05] MEDS: MUPIROCIN 2% TOPICAL OINTMENT FOR DECOLONIZATION NS SCH ×2 (10:53→21:22)
[2019-01-05] MEDS ORDERED: MAG HYDROX/AL HYDROX/SIMETH 30 ML UNIT-DOSE CUP PO PRN (14:33)
[2019-01-05] MEDS: DEXTROSE 5%-NORMAL SALINE 1,000 ML IV SCH (18:00)
[2019-01-05] MEDS: CHLORHEXIDINE GLUCONATE 4% CLEANSER FOR DECOLONIZATION TP SCH (21:21)
[2019-01-06] MEDS ORDERED: PIPERACILLIN/TAZOBACTAM 3.375 GM VIAL IVPB ONE ×3 (02:21→17:15)
[2019-01-06] MEDS ORDERED: DEXTROSE 5%-WATER - 50 ML IVPB ONE ×3 (02:22→17:15)
[2019-01-06] MEDS: PIPERACILLIN/TAZOB 3.375 GM 3.375 GM in DEXTROSE 5%-WATER - 50 ML IVPB SCH ×3 (02:32→17:39)
[2019-01-06] MEDS: Lacosamide 200 MG/20 ML VIAL IVPB SCH ×3 (06:06→23:49)
[2019-01-06] MEDS: HEPARIN NA (PORCINE) 5,000 UNITS/ML 1ML VIAL SQ SCH ×3 (06:06→23:50)
[2019-01-06 08:36] LABS: BLOOD UREA NITROGEN 3.9 mg/dL (7-18); CALCIUM 8.7 mg/dL (8.5-10.1); CREATININE 0.9 mg/dL (0.55-1.3); MAGNESIUM 1.7 mg/dL (1.8-2.4); PHOSPHOROUS 3.1 mg/dL (2.5-4.9); POTASSIUM 3.1 mmol/L (3.5-5.1)
--- NOTE | 2019-01-06 09:17 | PN ---
Progress Note, Physician History of Present Illness: events noted and chart reviewed EEG was read Sunday No leo seizure Downgraded from the ICU to telemetry Still very deeply unresponsive - Current Medication List Current Medications: Active Medications Al Hydroxide/Mg Hydroxide (Mylanta Oral Suspension -) 30 ml PO Q6H PRN PRN Reason: INDIGESTION Heparin Sodium (Porcine) (Heparin -) 5,000 unit SQ TID KRYSTEN Last Admin: 01/06/19 06:06 Dose: 5,000 unit Dextrose/Sodium Chloride (D5-Ns -) 1,000 mls @ 75 mls/hr IV ASDIR KRYSTEN Last Admin: 01/05/19 18:00 Dose: 75 mls/hr Fluconazole (Diflucan 200 Mg/D5w Premixed Ivpb -) 100 mls @ 100 mls/hr IVPB DAILY KRYSTEN Piperacillin Sod/Tazobactam (Sod 3.375 gm/ Dextrose) 50 mls @ 100 mls/hr IVPB Q8H-IV KRYSTEN; Protocol Last Admin: 01/06/19 02:32 Dose: 100 mls/hr Lacosamide (Vimpat Injection -) 100 mg IVPB Q12H KRYSTEN Last Admin: 01/06/19 06:06 Dose: 100 mg Levetiracetam (Keppra Injection -) 500 mg IVPB BID [facility] - Objective Vital Signs: Vital Signs Temperature 97.8 F 01/06/19 06:00 Pulse Rate 80 01/06/19 06:00 Respiratory Rate 18 01/06/19 00:00 Blood Pressure 132/84 01/06/19 06:00 O2 Sat by Pulse Oximetry (%) 100 01/05/19 20:33 Constitutional: Yes: Well Nourished Eyes: Yes: WNL Neurological: Yes: Babinski positive ...Motor Strength: RUE (Deeply unresponsive with difficult to response to sternal rub painful stimuli grimaces to pain bilateral sluggishly reactive pupils with no gaze deviation positive doll's eyes positive weak gag increased tone on the right side with upgoing plantar) Labs: CBC, BMP 01/05/19 05:35 01/06/19 06:30 INR, PTT INR 0.97 (0.83-1.09) 01/02/19 03:40 Problem List - Problems (1) Seizure Assessment/Plan: relapsing remitting multiple sclerosis Complex partial seizure Hypokalemia 1. EEG reading in the chart 2. Increase Vimpat to 150 twice daily IV 3. Taper Keppra 4. Avoid sedation 5. Order video EEG for 48 hours Code(s): R56.9 - UNSPECIFIED CONVULSIONS
[2019-01-06] MEDS ORDERED: MUPIROCIN 2% TOPICAL OINTMENT FOR DECOLONIZATION NS SCH (10:00)
[2019-01-06] MEDS ORDERED: PT OWN MED DRAWER 7, Y5N ONE (10:41)
[2019-01-06] MEDS: FLUCONAZOLE 200 MG/D5W 100 ML IVPB SCH (10:46)
[2019-01-06] MEDS: levETIRAcetam 500 MG/5 ML INJECTION VIAL IVPB SCH ×2 (10:48→23:50)
[2019-01-06] MEDS: DEXTROSE 5%-NORMAL SALINE 1,000 ML IV SCH (10:51)
[2019-01-06] MEDS ORDERED: MAGNESIUM SULF 50% (8.12 MEQ/2 ML-1 GM VIAL) IVPB ONE (11:45)
[2019-01-06] MEDS: KCL 10 MEQ IVPB 10 MEQ/100 ML INFUS.BAG IVPB SCH ×3 (12:16→14:37)
--- NOTE | 2019-01-06 13:34 | PN ---
Teaching Attending Note Name of Resident: Lauren Mendoza ATTENDING PHYSICIAN STATEMENT I saw and evaluated the patient. I reviewed the resident's note and discussed the case with the resident. I agree with the resident's findings and plan as documented. SUBJECTIVE: No events over night OBJECTIVE: awake, not responsive even to sternal rub , blinks , does not follow commands . CV: RRR, no MRG Lungs: decreased breath sounds, clear anteriorly Abd: soft, nl BD, NT Ext : LUE contraction at level of elbow, wrist and hand. no edema on LE contraction at level of knees muscle atrophy. Rigidity in RUE ASSESSMENT AND PLAN: 73 y/o lady with h/o MS, CVA s/p L sided weakness and contraction, R nephrectomy , PNA, constipation , Seizure disorder 05/12, septic shock form UTI 11/10, who presented from home with seizure activity. 1- Seizure activity: - EEG with temporal spikes but no active seizures - d/w Dr. Hough. cont keppra and Vimpat increased . - 48 hr video EEG 2- Encephalopathy: still unclear of the cause. MRI reviewed, with no acute infart or worsening in MS plaques . Wonder if sepsis and hypothermia affected her brain with the background of seizure/stroke/MS. ? prolonged postictal, or ? recurrent n on convulsive seizures/status - Video EEG - cont new seizure meds 3- Sepsis: due to UTI. - cont zosyn and fluconazol . - Yeast Identification is pending - hypothermia resolved. Am cortisol pending - start Clinimix 3- Hypoglycemia: resolved. Clinimix 4- Anb TFTs: repeat when in a steady state as out pt 5- replete K and Mg 6- Severe protein calorie malnutrition . Code status, full code for now.
[2019-01-06] MEDS: AMINO ACIDS 4.25%/D5W 1,000 ML IV SCH (13:37)
--- NOTE | 2019-01-06 14:06 | PN ---
Progress Note, Physician History of Present Illness: NOT RESPONSIVE TO VERBAL STIMULUS EYES OPEN; PREFERENTIAL L GAZE; HORIZONTAL NYSTAGMUS TEMPS REMAIN ON LOW SIDE WBC WNL BC (-) - Current Medication List Current Medications: Active Medications Al Hydroxide/Mg Hydroxide (Mylanta Oral Suspension -) 30 ml PO Q6H PRN PRN Reason: INDIGESTION Heparin Sodium (Porcine) (Heparin -) 5,000 unit SQ TID [facility] Last Admin: 01/06/19 13:32 Dose: 5,000 unit Fluconazole (Diflucan 200 Mg/D5w Premixed Ivpb -) 100 mls @ 100 mls/hr IVPB DAILY KRYSTEN Last Admin: 01/06/19 10:46 Dose: 100 mls/hr Piperacillin Sod/Tazobactam (Sod 3.375 gm/ Dextrose) 50 mls @ 100 mls/hr IVPB Q8H-IV KRYSTEN; Protocol Last Admin: 01/06/19 10:47 Dose: 100 mls/hr Amino Acids (Clinimix -) 1,000 mls @ 42 mls/hr IV Q23H KRYSTEN Last Admin: 01/06/19 13:37 Dose: 42 mls/hr Potassium Chloride (Potassium Chloride 10 Meq Premix Ivpb -) 10 meq in 100 mls @ 100 mls/hr IVPB Q60M [facility] Stop: 01/06/19 14:59 Last Admin: 01/06/19 13:32 Dose: 100 mls/hr Lacosamide (Vimpat Injection -) 150 mg IVPB BID [facility] Last Admin: 01/06/19 10:47 Dose: 150 mg Levetiracetam (Keppra Injection -) 500 mg IVPB BID [facility] Last Admin: 01/06/19 10:48 Dose: 500 mg - Objective Vital Signs: Vital Signs Temperature 97.5 F L 01/06/19 13:26 Pulse Rate 74 01/06/19 13:26 Respiratory Rate 18 01/06/19 13:26 Blood Pressure 140/90 01/06/19 13:26 O2 Sat by Pulse Oximetry (%) 100 01/06/19 09:00 Constitutional: Yes: No Distress, Cachectic Eyes: Yes: Conjunctiva Clear Cardiovascular: Yes: Regular Rate and Rhythm, S1, S2 Respiratory: Yes: CTA Bilaterally, Diminished Gastrointestinal: Yes: Normal Bowel Sounds, Soft. No: Tenderness Extremities: Yes: Other (+ CONTRACTURES) Edema: No Labs: CBC, BMP 01/05/19 05:35 01/06/19 06:30 INR, PTT INR 0.97 (0.83-1.09) 01/02/19 03:40 Assessment/Plan SEPSIS HYPOTHERMIA UTI R/O SEPSIS SECONDARY TO SOURCE S/P SEIZURE HX NEPHRECTOMY MS CONTINUE ZOSYN/ FLUCONAZOLE SUPPORTIVE MEASURES
--- NOTE | 2019-01-06 14:37 | EKG ---
Test Reason : Blood Pressure : / mmHG Vent. Rate : 066 BPM Atrial Rate : 066 BPM P-R Int : 156 ms QRS Dur : 086 ms QT Int : 426 ms P-R-T Axes : 065 010 069 degrees QTc Int : 446 ms NORMAL SINUS RHYTHM NORMAL ECG WHEN COMPARED WITH ECG OF 02-JAN-2019 09:41, T WAVE VARIATION Confirmed by RICKY CRAIG MD ([id number]) on 01/06/2019 2:37:04 PM Referred By: MIRIAN AGUILAR Confirmed By:RICKY CRAIG MD
--- NOTE | 2019-01-06 17:36 | PN ---
Physical Exam: SUBJECTIVE: Patient seen and examined at the bedside. Pt is fully non- responsive to sternal rub. Pt had no acute events on tele. OBJECTIVE: Vital Signs Period Temp Pulse Resp BP Sys/Varner Pulse Ox Last 24 Hr 96.2 F-98.7 F 64-98 11-20 129-144/79-90 100-100 GENERAL: The patient is nonresponsive to sternal rub, left arm contracture, HEAD: Normal with no signs of trauma. EYES:left lateral gaze. NECK: supple. LUNGS: Breath sounds decreased b/l, no wheezes, no crackles, no accessory muscle use. HEART: Regular rate and rhythm, S1, S2 without murmur, rub or gallop. ABDOMEN: Soft, nontender from what I could tell considering patients status, nondistended, normoactive bowel sounds, no guarding, no rebound, no masses. EXTREMITIES: warm, well-perfused, no edema. SKIN: Warm, dry, no rashes or lesions noted Laboratory Results - last 24 hr 01/02/19 01/06/19 03:40 06:30 Sodium 145 Potassium 3.1 L Chloride 111 H Carbon Dioxide 28 Anion Gap 6 L BUN 3.9 L Creatinine 0.9 Est GFR (CKD-EPI)AfAm 74.56 Est GFR (CKD-EPI)NonAf 64.33 Random Glucose 126 H Calcium 8.7 Phosphorus 3.1 Magnesium 1.7 L Levetiracetam 11.3 Active Medications Generic Name Dose Route Start Last Admin Trade Name Freq PRN Reason Stop Dose Admin Al Hydroxide/Mg Hydroxide 30 ml 01/05/19 14:33 Mylanta Oral Suspension - PO Q6H PRN INDIGESTION Heparin Sodium (Porcine) 5,000 unit 01/06/19 06:00 01/06/19 13:32 Heparin - SQ 5,000 unit TID KRYSTEN Administration Fluconazole 100 mls @ 100 mls/hr 01/06/19 10:00 01/06/19 10:46 Diflucan 200 Mg/D5w Premixed Ivpb - IVPB 100 mls/hr DAILY KRYSTEN Administration Piperacillin Sod/Tazobactam 50 mls @ 100 mls/hr 01/06/19 02:00 01/06/19 10:47 Sod 3.375 gm/ Dextrose IVPB 100 mls/hr Q8H-IV KRYSTEN Administration Protocol Amino Acids 1,000 mls @ 42 mls/hr 01/06/19 11:45 01/06/19 13:37 Clinimix - IV 42 mls/hr Q23H KRYSTEN Administration Lacosamide 150 mg 01/06/19 10:00 01/06/19 10:47 Vimpat Injection - IVPB 150 mg BID KRYSTEN Administration Levetiracetam 500 mg 01/06/19 10:00 01/06/19 10:48 Keppra Injection - IVPB 500 mg BID KRYSTEN Administration ASSESSMENT/PLAN: 73 y/o lady with h/o MS, CVA s/p L sided weakness and contraction, R nephrectomy , PNA, constipation , Seizure disorder 05/12, septic shock form UTI 11/10, who presented from home with seizure activity. #Seizure like activity: - EEG with temporal spikes but no active seizures - Neuro consult with Dr. Hough- recommends continuing keppra and Vimpat increase to 150BID . - 48 hr video EEG ordered by neuro will await results to assess longer term brain activity. #Encephalopathy: - MRI- no acute infart or worsening in MS plaques. - sepsis in setting of hypothermia could it have affected her brain activity? - ? prolonged postictal - ? recurrent seizures - Video EEG - cont new seizure meds #Fungal Sepsis due to UTI. - cont zosyn and fluconazole (day 3). - Yeast Identification is pending, spoke to laboratory and they got in touch with [facility] but results still pending. - hypothermia resolved. - Am cortisol pending #Hypoglycemia: - resolved pt on IV Clinimix #TFT's: - repeat when in a steady state as out pt #replete K and Mg - replete as necessary. - 30meq KCL given to replete K from 3.1 -1g Mg given fro 1.7 level. #Severe protein-calorie malnutrition - on IV clinimix 1L/day. DVT ppx: heparin 5000 TID SQ Code status, full code for now. Dispo: spoke to patients daughter regarding patient's status. She was very pleased to be updated. Visit type - Emergency Visit Emergency Visit: No - New Patient This patient is new to me today: No - Critical Care Critical Care patient: Yes Total Critical Care Time (in minutes): 45 Critical Care Statement: The care of this patient involved high complexity decision making to prevent further life threatening deterioration of the patient 's condition and/or to evaluate & treat vital organ system(s) failure or risk of failure. - Discharge Referral Referred to [facility] No ATTENDING PHYSICIAN STATEMENT I saw and evaluated the patient. I reviewed the resident's note and discussed the case with the resident. I agree with the resident's findings and plan as documented. SUBJECTIVE: OBJECTIVE: ASSESSMENT AND PLAN:
[2019-01-06] MEDS ORDERED: CHLORHEXIDINE GLUCONATE 4% CLEANSER FOR DECOLONIZATION TP SCH (22:00)
[2019-01-07] MEDS: PIPERACILLIN/TAZOB 3.375 GM 3.375 GM in DEXTROSE 5%-WATER - 50 ML IVPB SCH ×3 (02:30→17:50)
[2019-01-07] MEDS ORDERED: DEXTROSE 5%-WATER - 50 ML IVPB ONE ×3 (02:42→17:42)
[2019-01-07] MEDS ORDERED: PIPERACILLIN/TAZOBACTAM 3.375 GM VIAL IVPB ONE ×3 (02:42→17:42)
[2019-01-07] MEDS: HEPARIN NA (PORCINE) 5,000 UNITS/ML 1ML VIAL SQ SCH ×3 (06:27→22:59)
[2019-01-07 07:08] LABS: BASO % 0.6 % (0-2.0); EOS % 1.3 % (0-4.5); HEMATOCRIT 32.1 % (32.4-45.2); HEMOGLOBIN 10.6 GM/dL (10.7-15.3); LYMPH % 29.3 % (8-40); MCH 27.4 pg (25.7-33.7); MEAN CELL VOLUME 83.1 fl (80-96); MEAN PLT VOLUME 8.2 fl (7.5-11.1); MONO % 16.4 % (3.8-10.2); NEUT % 52.4 % (42.8-82.8); RBC 3.86 M/mm3 (3.60-5.2); RDW 15.2 % (11.6-15.6)
[2019-01-07 08:05] LABS: PLATELET COUNT 271 K/MM3 (134-434)
--- NOTE | 2019-01-07 09:16 | PN ---
Progress Note, Physician History of Present Illness: eevents noted Chart reviewed No seizure activity overnight 48-hour video EEG was hooked - Current Medication List Current Medications: Active Medications Al Hydroxide/Mg Hydroxide (Mylanta Oral Suspension -) 30 ml PO Q6H PRN PRN Reason: INDIGESTION Heparin Sodium (Porcine) (Heparin -) 5,000 unit SQ TID [facility] Last Admin: 01/07/19 06:27 Dose: 5,000 unit Fluconazole (Diflucan 200 Mg/D5w Premixed Ivpb -) 100 mls @ 100 mls/hr IVPB DAILY [facility] Last Admin: 01/06/19 10:46 Dose: 100 mls/hr Piperacillin Sod/Tazobactam (Sod 3.375 gm/ Dextrose) 50 mls @ 100 mls/hr IVPB Q8H-IV [facility]; Protocol Last Admin: 01/07/19 02:30 Dose: 100 mls/hr Amino Acids (Clinimix -) 1,000 mls @ 42 mls/hr IV Q23H [facility] Last Admin: 01/06/19 13:37 Dose: 42 mls/hr Lacosamide (Vimpat Injection -) 150 mg IVPB BID [facility] Last Admin: 01/06/19 23:49 Dose: 150 mg Levetiracetam (Keppra Injection -) 500 mg IVPB BID [facility] Last Admin: 01/06/19 23:50 Dose: 500 mg - Objective Vital Signs: Vital Signs Temperature 97.5 F L 01/07/19 06:00 Pulse Rate 65 01/07/19 06:00 Respiratory Rate 18 01/07/19 06:00 Blood Pressure 137/72 01/07/19 06:00 O2 Sat by Pulse Oximetry (%) 100 01/06/19 21:00 Constitutional: Yes: Well Nourished Eyes: Yes: WNL HENT: Yes: WNL Neurological: Yes: Alert, Babinski negative ...Motor Strength: LUE, RUE (spasticity) Labs: CBC, BMP 01/07/19 06:40 INR, PTT INR 0.97 (0.83-1.09) 01/02/19 03:40 Problem List - Problems (1) Seizure Assessment/Plan: 1. Seizure precautions. 2. Review the video EEG. 3. Continue Vimpat 150 twice daily. 4. Continue Keppra the same. Code(s): R56.9 - UNSPECIFIED CONVULSIONS
--- NOTE | 2019-01-07 09:17 | PN ---
Progress Note (short form) - Note Progress Note: epilepsy service progress note 16 channel video EEG monitoring was health yesterday No report of any clinical seizure Patient is lying comfortably in the bed Patient is on dual antiseizure medication Overnight study will be reviewed today Problem List - Problems (1) Seizure Code(s): R56.9 - UNSPECIFIED CONVULSIONS
[2019-01-07] MEDS: levETIRAcetam 500 MG/5 ML INJECTION VIAL IVPB SCH (09:39)
[2019-01-07] MEDS: FLUCONAZOLE 200 MG/D5W 100 ML IVPB SCH (10:25)
[2019-01-07] MEDS: Lacosamide 200 MG/20 ML VIAL IVPB SCH ×2 (11:16→22:59)
[2019-01-07] MEDS: AMINO ACIDS 4.25%/D5W 1,000 ML IV SCH (11:16)
[2019-01-07 12:58] LABS: ALBUMIN 2.1 g/dl (3.4-5.0); BILIRUBIN,TOTAL 0.2 mg/dL (0.2-1); BLOOD UREA NITROGEN 12.7 mg/dL (7-18); CREATININE 0.7 mg/dL (0.55-1.3); POTASSIUM 3.6 mmol/L (3.5-5.1); TOT PROT 6.6 g/dl (6.4-8.2)
--- NOTE | 2019-01-07 15:14 | PN ---
Physical Exam: SUBJECTIVE: Patient seen and examined at the [facility]. No acute events on tele or per nurse. OBJECTIVE: Vital Signs Period Temp Pulse Resp BP Sys/Varner Pulse Ox Last 24 Hr 97.4 F-98.6 F 60-85 18-18 124-142/72-95 100 GENERAL: The patient was nonarousable to sternal rub. HEAD: Normal with no signs of trauma. EYES: conjunctiva clear. No ptosis. NECK: supple. LUNGS: Breath sounds decreased bilaterally, no wheezes, no crackles, no accessory muscle use. HEART: Regular rate and rhythm, S1, S2 without murmur, rub or gallop. ABDOMEN: Soft, nontender, nondistended, no guarding, no rebound, no masses. EXTREMITIES:warm, well-perfused, no edema. SKIN: Warm, dry, no rashes or lesions noted Laboratory Results - last 24 hr 01/05/19 01/07/19 01/07/19 05:35 06:40 11:15 WBC 5.0 RBC 3.86 Hgb 10.6 L Hct 32.1 L MCV 83.1 MCH 27.4 MCHC 33.0 RDW 15.2 Plt Count 271 MPV 8.2 Absolute Neuts (auto) 2.6 Neutrophils % 52.4 Lymphocytes % 29.3 D Monocytes % 16.4 H Eosinophils % 1.3 Basophils % 0.6 Nucleated RBC % 0 Sodium 142 Potassium 3.6 Chloride 109 H Carbon Dioxide 24 Anion Gap 10 BUN 12.7 Creatinine 0.7 Est GFR (CKD-EPI)AfAm 101.03 Est GFR (CKD-EPI)NonAf 87.17 Random Glucose 168 H Calcium 9.0 Total Bilirubin 0.2 AST 19 ALT 8 L Alkaline Phosphatase 94 Total Protein 6.6 Albumin 2.1 L Cortisol AM Sample 13.3 Active Medications Generic Name Dose Route Start Last Admin Trade Name Freq PRN Reason Stop Dose Admin Al Hydroxide/Mg Hydroxide 30 ml 01/05/19 14:33 Mylanta Oral Suspension - PO Q6H PRN INDIGESTION Heparin Sodium (Porcine) 5,000 unit 01/06/19 06:00 01/07/19 13:51 Heparin - SQ 5,000 unit TID [facility] Administration Fluconazole 100 mls @ 100 mls/hr 01/06/19 10:00 01/07/19 10:25 Diflucan 200 Mg/D5w Premixed Ivpb - IVPB 100 mls/hr DAILY [facility] Administration Piperacillin Sod/Tazobactam 50 mls @ 100 mls/hr 01/06/19 02:00 01/07/19 09:39 Sod 3.375 gm/ Dextrose IVPB 100 mls/hr Q8H-IV [facility] Administration Protocol Amino Acids 1,000 mls @ 42 mls/hr 01/06/19 11:45 01/07/19 11:16 Clinimix - IV 42 mls/hr Q23H [facility] Administration Lacosamide 150 mg 01/06/19 10:00 01/07/19 11:16 Vimpat Injection - IVPB 150 mg BID [facility] Administration Levetiracetam 500 mg 01/06/19 10:00 01/07/19 09:39 Keppra Injection - IVPB 500 mg BID [facility] Administration ASSESSMENT/PLAN: ASSESSMENT/PLAN: 73 y/o lady with h/o MS, CVA s/p L sided weakness and contraction, R nephrectomy , PNA, constipation , Seizure disorder 05/12, septic shock form UTI 11/10, who presented from home with seizure activity. #Seizure like activity: - EEG with temporal spikes but no active seizures. -Dr. Hough- recommends continuing keppra and Vimpat 150BID. - 48 hr video EEG has been normal w no signs of seizure activity. #Encephalopathy: - MRI- no acute infart or worsening in MS plaques. - sepsis in setting of hypothermia could it have affected her brain activity? - if 48 hr EEG final report shows no abnomalities may consider an LP. #Fungal Sepsis due to UTI. - cont zosyn and fluconazole (day 4). - Yeast Identification is Magali albicans which should not jacquard loom card changer. - hypothermia resolved. - Am cortisol 13.3 which is NL. #Hypoglycemia: - resolved pt on IV Clinimix - glucose 168. #TFT's: - repeat when in a steady state as out pt #replete K and Mg - replete as necessary. - 30meq KCL given to replete K from 3.1-3.6 -1g Mg given fro 1.7- level. #Severe protein-calorie malnutrition - on IV clinimix 1L/day. DVT ppx: heparin 5000 TID SQ Code status, full code for now. Visit type - Emergency Visit Emergency Visit: No - New Patient This patient is new to me today: No - Critical Care Critical Care patient: No - Discharge Referral [facility] No ATTENDING PHYSICIAN STATEMENT I saw and evaluated the patient. I reviewed the resident's note and discussed the case with the resident. I agree with the resident's findings and plan as documented. SUBJECTIVE: OBJECTIVE: ASSESSMENT AND PLAN:
--- NOTE | 2019-01-07 15:22 | PN ---
Progress Note, Physician History of Present Illness: NOT RESPONSIVE TO VERBAL STIMULUS EYES OPEN AFEBRILE WBC WNL BC (-) - Current Medication List Current Medications: Active Medications Al Hydroxide/Mg Hydroxide (Mylanta Oral Suspension -) 30 ml PO Q6H PRN PRN Reason: INDIGESTION Heparin Sodium (Porcine) (Heparin -) 5,000 unit SQ TID [facility] Last Admin: 01/07/19 13:51 Dose: 5,000 unit Fluconazole (Diflucan 200 Mg/D5w Premixed Ivpb -) 100 mls @ 100 mls/hr IVPB DAILY [facility] Last Admin: 01/07/19 10:25 Dose: 100 mls/hr Piperacillin Sod/Tazobactam (Sod 3.375 gm/ Dextrose) 50 mls @ 100 mls/hr IVPB Q8H-IV [facility]; Protocol Last Admin: 01/07/19 09:39 Dose: 100 mls/hr Amino Acids (Clinimix -) 1,000 mls @ 42 mls/hr IV Q23H [facility] Last Admin: 01/07/19 11:16 Dose: 42 mls/hr Lacosamide (Vimpat Injection -) 200 mg IVPB BID [facility] Valproate Sodium (Depacon Injection -) 500 mg IVPB BID [facility] - Objective Vital Signs: Vital Signs Temperature 98.6 F 01/07/19 14:15 Pulse Rate 66 01/07/19 14:15 Respiratory Rate 18 01/07/19 14:15 Blood Pressure 138/79 01/07/19 14:15 O2 Sat by Pulse Oximetry (%) 100 01/06/19 21:00 Constitutional: Yes: No Distress, Cachectic Cardiovascular: Yes: Regular Rate and Rhythm, S1, S2 Respiratory: Yes: Diminished Gastrointestinal: Yes: Normal Bowel Sounds, Soft. No: Tenderness Edema: No Labs: CBC, BMP 01/07/19 06:40 01/07/19 11:15 INR, PTT INR 0.97 (0.83-1.09) 01/02/19 03:40 Assessment/Plan SEPSIS HYPOTHERMIA RESOLVED UTI R/O SEPSIS SECONDARY TO SOURCE S/P SEIZURE HX NEPHRECTOMY MS CONTINUE ZOSYN/ FLUCONAZOLE DAY #6 REPEAT CXR SUPPORTIVE MEASURES
--- NOTE | 2019-01-07 18:06 | PN ---
Teaching Attending Note Name of Resident: Lauren Mendoza ATTENDING PHYSICIAN STATEMENT I saw and evaluated the patient. I reviewed the resident's note and discussed the case with the resident. I agree with the resident's findings and plan as documented. SUBJECTIVE: No events over night OBJECTIVE: opens eyes, tracks, no response to commands. round pupils, minimally reactive to light CV: RRR, no MRG Lungs: decreased breath sounds, clear anteriorly Abd: soft, nl BD, NT Ext: LUE contraction at level of elbow, wrist and hand. no edema on LE contraction at level of knees muscle atrophy. Rigidity in RUE. ASSESSMENT AND PLAN: 73 y/o lady with h/o MS, CVA s/p L sided weakness and contraction, R nephrectomy , PNA, constipation , Seizure disorder 05/12, septic shock form UTI 11/10, who presented from home with seizure activity. 1- Seizure activity: - cont keppra and Vimpat - 48 hr video EEG in progress, no seizure activity so far per d/w Dr. Hough 2- Encephalopathy: still unclear of the cause. no acute infarct or worsening in MS plaques . Wonder if sepsis and hypothermia affected her brain with the background of seizure/stroke/MS. ? prolonged postictal. - Video EEG in progress. - If not improvement in mental status, will d/w Neuro the need for LP 3- Sepsis: due to UTI. - cont zosyn and fluconazol . - cx with neville species - hypothermia resolved. - cont Clinimix day 2 . monitor electrolytes 3- Hypoglycemia: resolved. Clinimix 4- Anb TFTs: repeat when in a steady state as out pt 5- Severe protein calorie malnutrition. Code status, full code.
[2019-01-07] MEDS: VALPROATE SODIUM 500 MG/5 ML VIAL IVPB SCH (22:59)
[2019-01-08] MEDS ORDERED: DEXTROSE 5%-WATER - 50 ML IVPB ONE ×2 (01:12→09:29)
[2019-01-08] MEDS ORDERED: PIPERACILLIN/TAZOBACTAM 3.375 GM VIAL IVPB ONE ×2 (01:12→09:29)
[2019-01-08] MEDS: PIPERACILLIN/TAZOB 3.375 GM 3.375 GM in DEXTROSE 5%-WATER - 50 ML IVPB SCH ×2 (01:58→09:30)
[2019-01-08] MEDS: HEPARIN NA (PORCINE) 5,000 UNITS/ML 1ML VIAL SQ SCH ×3 (05:50→22:01)
[2019-01-08] MEDS ORDERED: THIAMINE HCL 200 MG/2 ML VIAL IVPB ONE (08:54)
--- NOTE | 2019-01-08 08:58 | PN ---
Teaching Attending Note Name of Resident: Prosper Hayes ATTENDING PHYSICIAN STATEMENT I saw and evaluated the patient. I reviewed the resident's note and discussed the case with the resident. I agree with the resident's findings and plan as documented. SUBJECTIVE: Patient is lying in bed, non verbal , starring at the wall. OBJECTIVE: Vital Signs Temperature 97.3 F L 01/08/19 08:41 Pulse Rate 58 L 01/08/19 08:41 Respiratory Rate 16 01/08/19 08:41 Blood Pressure 117/77 01/08/19 08:41 O2 Sat by Pulse Oximetry (%) 94 L 01/07/19 21:00 GENERAL: The patient is awake,non verbal, in no acute distress, just starring. HEAD: Normal with no signs of trauma. EYES: PERRL, EOMI, sclera anicteric, conjunctiva clear. ENT: Ears normal, oropharynx clear without exudates, moist mucous membranes. NECK: Trachea midline, full range of motion, supple. LUNGS: decreased Breath sounds AT BASIS , no wheezes, no crackles, no accessory muscle use. HEART: Regular rate and rhythm, S1, S2 without murmur, rub or gallop. ABDOMEN: Soft, NT, ND, normoactive bowel sounds, no guarding, no rebound, no hepatosplenomegaly, no masses. EXTREMITIES: 2+ pulses, warm, well-perfused, no edema. NEUROLOGICAL: Cranial nerves II through XII grossly intact. Normal speech, gait not observed. PSYCH: Normal mood, normal affect. SKIN: Warm, dry, normal turgor, no rashes or lesions noted WBC 5.0 K/mm3 (4.0-10.0) 01/07/19 06:40 RBC 3.86 M/mm3 (3.60-5.2) 01/07/19 06:40 Hgb 10.6 GM/dL (10.7-15.3) L 01/07/19 06:40 Hct 32.1 % (32.4-45.2) L 01/07/19 06:40 MCV 83.1 fl (80-96) 01/07/19 06:40 MCHC 33.0 g/dl (32.0-36.0) 01/07/19 06:40 RDW 15.2 % (11.6-15.6) 01/07/19 06:40 Plt Count 271 K/MM3 (134-434) 01/07/19 06:40 MPV 8.2 fl (7.5-11.1) 01/07/19 06:40 CMP Sodium 142 mmol/L (136-145) 01/07/19 11:15 Potassium 3.6 mmol/L (3.5-5.1) 01/07/19 11:15 Chloride 109 mmol/L (98-107) H 01/07/19 11:15 Carbon Dioxide 24 mmol/L (21-32) 01/07/19 11:15 Anion Gap 10 MMOL/L (8-16) 01/07/19 11:15 BUN 12.7 mg/dL (7-18) 01/07/19 11:15 Creatinine 0.7 mg/dL (0.55-1.3) 01/07/19 11:15 Random Glucose 168 mg/dL (74-106) H 01/07/19 11:15 Calcium 9.0 mg/dL (8.5-10.1) 01/07/19 11:15 Total Bilirubin 0.2 mg/dL (0.2-1) 01/07/19 11:15 AST 19 U/L (15-37) 01/07/19 11:15 ALT 8 U/L (13-61) L 01/07/19 11:15 Alkaline Phosphatase 94 U/L (45-117) 01/07/19 11:15 Total Protein 6.6 g/dl (6.4-8.2) 01/07/19 11:15 Albumin 2.1 g/dl (3.4-5.0) L 01/07/19 11:15 CARDIAC ENZYMES Creatine Kinase 166 U/L (26-192) 01/02/19 03:40 Troponin I < 0.02 ng/ml (0.00-0.05) 01/02/19 03:40 Current Medications Generic Name Dose Route Start Last Admin Trade Name Freq PRN Reason Stop Dose Admin Al Hydroxide/Mg Hydroxide 30 ml 01/05/19 14:33 Mylanta Oral Suspension - PO Q6H PRN INDIGESTION Heparin Sodium (Porcine) 5,000 unit 01/06/19 06:00 01/08/19 05:50 Heparin - SQ 5,000 unit TID [facility] Administration Fluconazole 100 mls @ 100 mls/hr 01/06/19 10:00 01/07/19 10:25 Diflucan 200 Mg/D5w Premixed Ivpb - IVPB 100 mls/hr DAILY [facility] Administration Piperacillin Sod/Tazobactam 50 mls @ 100 mls/hr 01/06/19 02:00 01/08/19 01:58 Sod 3.375 gm/ Dextrose IVPB 100 mls/hr Q8H-IV [facility] Administration Protocol Amino Acids 1,000 mls @ 42 mls/hr 01/06/19 11:45 01/07/19 11:16 Clinimix - IV 42 mls/hr Q23H [facility] Administration Lacosamide 200 mg 01/07/19 22:00 01/07/19 22:59 Vimpat Injection - IVPB 200 mg BID [facility] Administration Valproate Sodium 500 mg 01/07/19 22:00 01/07/19 22:59 Depacon Injection - IVPB 500 mg BID [facility] Administration Home Medications Medication Instructions Recorded levETIRAcetam [Keppra -] 250 mg PO BID 01/02/19 Microbiology 01/02/19 06:30 Urine - Urine - Catheterized Yeast/Fungus Identification - Final Magali Albicans 01/02/19 11:20 Blood - Peripheral Venous Blood Culture - Final NO GROWTH AFTER 5 DAYS INCUBATION 01/02/19 11:15 Blood - Peripheral Venous Blood Culture - Final NO GROWTH AFTER 5 DAYS INCUBATION 01/02/19 06:30 Urine - Urine - Catheterized Urine Culture - Final Yeast Like Organism ASSESSMENT AND PLAN: Patient is a 73 y/o female with PMhx of MS, CVA s/p L sided weakness and contraction, R nephrectomy, PNA, constipation , Seizure disorder 05/12, septic shock form UTI 11/10, who presented from home with seizure activity. # s/p acute Seizure activity: On keppra and Vimpat continue, Dr. Hough on board, patient is on 48 hr video EEG which is in progress, no seizure activity so far per d/w Dr. Hough. MRI ordered. follow the result # Encephalopathy: possible due to seizure activity; still the cause is unknown , no acute infarct or worsening in MS plaques. Video EEG in progress. nEuro on the case if no change in mentation will discuss with Neuro possible the need for LP # Sepsis: due to UTI. on zosyn and fluconazol continue # Nutrition : on Clinimix day 3 . monitor electrolytes # Hypoglycemia: resolved. Clinimix # Severe protein calorie malnutrition. # Abnl TFTs: repeat when in a steady state as out pt Code status, full code.
[2019-01-08 09:21] LABS: BASO % 0.5 % (0-2.0); EOS % 1.6 % (0-4.5); HEMATOCRIT 30.5 % (32.4-45.2); HEMOGLOBIN 10.2 GM/dL (10.7-15.3); LYMPH % 33.7 % (8-40); MCH 27.6 pg (25.7-33.7); MCHC 33.3 g/dl (32.0-36.0); MEAN CELL VOLUME 82.8 fl (80-96); MEAN PLT VOLUME 8.3 fl (7.5-11.1); MONO % 11.8 % (3.8-10.2); NEUT % 52.4 % (42.8-82.8); PLATELET COUNT 292 K/MM3 (134-434); RBC 3.68 M/mm3 (3.60-5.2); RDW 15.2 % (11.6-15.6); WHITE BLOOD COUNT 4.3 K/mm3 (4.0-10.0)
[2019-01-08] MEDS ORDERED: PT OWN MED DRAWER 7, Y5N ONE (09:28)
[2019-01-08] MEDS: THIAMINE HCL 200 MG/2 ML VIAL IVPB SCH ×2 (09:30→22:42)
[2019-01-08] MEDS: AMINO ACIDS 4.25%/D5W 1,000 ML IV SCH (09:32)
[2019-01-08] MEDS: VALPROATE SODIUM 500 MG/5 ML VIAL IVPB SCH ×2 (09:32→22:38)
[2019-01-08 09:45] LABS: ALBUMIN 2.3 g/dl (3.4-5.0); BILIRUBIN,TOTAL 0.3 mg/dL (0.2-1); BLOOD UREA NITROGEN 15.3 mg/dL (7-18); CALCIUM 9.5 mg/dL (8.5-10.1); CREATININE 0.8 mg/dL (0.55-1.3); POTASSIUM 3.4 mmol/L (3.5-5.1); TOT PROT 6.9 g/dl (6.4-8.2)
--- NOTE | 2019-01-08 10:31 | PN ---
Progress Note, Physician Chief Complaint: events noted chart review seen on telemetry More lethargic than yesterday difficult to arouse 4 extremities symmetrically Upon oopening the eyes patient with gaze deviation again Left arm spastic Video EEG monitoring overnight with no seizures detected activity Patient is currently off the Keppra Patient is currently on a higher dosage of Vimpat Depakote started - Current Medication List Current Medications: Active Medications Al Hydroxide/Mg Hydroxide (Mylanta Oral Suspension -) 30 ml PO Q6H PRN PRN Reason: INDIGESTION Heparin Sodium (Porcine) (Heparin -) 5,[address] [facility] Last Admin: 01/08/19 05:50 Dose: 5,000 unit Fluconazole (Diflucan 200 Mg/D5w Premixed Ivpb -) 100 mls @ 100 mls/hr IVPB DAILY [facility] Last Admin: 01/07/19 10:25 Dose: 100 mls/hr Piperacillin Sod/Tazobactam (Sod 3.375 gm/ Dextrose) 50 mls @ 100 mls/hr IVPB Q8H-IV [facility]; Protocol Last Admin: 01/08/19 01:58 Dose: 100 mls/hr Amino Acids (Clinimix -) 1,000 mls @ 42 mls/hr IV Q23H [facility] Last Admin: 01/08/19 09:32 Dose: 42 mls/hr Lacosamide (Vimpat Injection -) [address] [facility] Last Admin: 01/07/19 22:59 Dose: 200 mg Thiamine HCl (Vitamin B1 Injection -) [address] [facility] Valproate Sodium (Depacon Injection -) [address] [facility] Last Admin: 01/08/19 09:32 Dose: 500 mg - Objective Vital Signs: Vital Signs Temperature 97.3 F L 01/08/19 08:41 Pulse Rate 58 L 01/08/19 08:41 Respiratory Rate 16 01/08/19 08:41 Blood Pressure 117/77 01/08/19 08:41 O2 Sat by Pulse Oximetry (%) 94 L 01/07/19 21:00 Constitutional: Yes: Well Nourished Eyes: Yes: WNL Neurological: Yes: Other (ssedated no gaze deviation doesn't follow command no response to painful stimuli no spontaneous movement increased tone on the left side) Labs: CBC, BMP 01/08/19 07:55 01/08/19 06:00 INR, PTT INR 0.97 (0.83-1.09) 01/02/19 03:40 Problem List - Problems (1) Seizure Assessment/Plan: questionable partial status On Depakote Vimpat More sedated today No clinical seizure No electrical seizure on the video EEG Continue the video EEG for another 24 hours we'll disconnect and get an MRI of the brain Code(s): R56.9 - UNSPECIFIED CONVULSIONS
[2019-01-08] MEDS: FLUCONAZOLE 200 MG/D5W 100 ML IVPB SCH (11:14)
--- NOTE | 2019-01-08 11:55 | PN ---
Progress Note, Physician History of Present Illness: LRTHARGIC NOT RESPONSIVE TO VERBAL STIMULUS EYES OPEN AFEBRILE WBC WNL BC (-) - Current Medication List Current Medications: Active Medications Al Hydroxide/Mg Hydroxide (Mylanta Oral Suspension -) 30 ml PO Q6H PRN PRN Reason: INDIGESTION Heparin Sodium (Porcine) (Heparin -) 5,000 unit SQ TID [facility] Last Admin: 01/08/19 05:50 Dose: 5,000 unit Fluconazole (Diflucan 200 Mg/D5w Premixed Ivpb -) 100 mls @ 100 mls/hr IVPB DAILY [facility] Last Admin: 01/08/19 11:14 Dose: 100 mls/hr Piperacillin Sod/Tazobactam (Sod 3.375 gm/ Dextrose) 50 mls @ 100 mls/hr IVPB Q8H-IV [facility]; Protocol Last Admin: 01/08/19 09:30 Dose: 100 mls/hr Amino Acids (Clinimix -) 1,000 mls @ 42 mls/hr IV Q23H [facility] Last Admin: 01/08/19 09:32 Dose: 42 mls/hr Lacosamide (Vimpat Injection -) 200 mg IVPB BID [facility] Last Admin: 01/07/19 22:59 Dose: 200 mg Thiamine HCl (Vitamin B1 Injection -) 200 mg IVPB BID [facility] Last Admin: 01/08/19 09:30 Dose: 200 mg Valproate Sodium (Depacon Injection -) 500 mg IVPB BID [facility] Last Admin: 01/08/19 09:32 Dose: 500 mg - Objective Vital Signs: Vital Signs Temperature 97.3 F L 01/08/19 08:41 Pulse Rate 58 L 01/08/19 08:41 Respiratory Rate 16 01/08/19 08:41 Blood Pressure 117/77 01/08/19 08:41 O2 Sat by Pulse Oximetry (%) 94 L 01/07/19 21:00 Constitutional: Yes: No Distress Eyes: Yes: Conjunctiva Clear Cardiovascular: Yes: Regular Rate and Rhythm, S1, S2 Respiratory: Yes: Diminished Gastrointestinal: Yes: Normal Bowel Sounds, Soft. No: Tenderness Edema: No Labs: CBC, BMP 01/08/19 07:55 01/08/19 06:00 INR, PTT INR 0.97 (0.83-1.09) 07/11/19 03:40 Assessment/Plan SEPSIS HYPOTHERMIA RESOLVED UTI R/O SEPSIS SECONDARY TO SOURCE S/P SEIZURE HX NEPHRECTOMY MS DAY#7 ZOSYN/ FLUCONAZOLE REPEAT CXR IMPROVED D/C ANTIBIOTICS, OBSERVE OFF SUPPORTIVE MEASURES
[2019-01-08] MEDS: Lacosamide 200 MG/20 ML VIAL IVPB SCH ×2 (12:57→21:56)
--- NOTE | 2019-01-08 14:00 | PN ---
Physical Exam: SUBJECTIVE: Patient seen and examined at bedside. EEG still on. pt still unresponsive with eyes open. OBJECTIVE: Vital Signs Period Temp Pulse Resp BP Sys/Varner Pulse Ox Last 24 Hr 97.0 F-98.6 F 58-89 16-20 117-148/77-99 94-97 GENERAL: The patient is awake, alert, and fully oriented, in no acute distress. HEAD: Normal with no signs of trauma. EYES: Left lateral gaze. . NECK: supple. LUNGS: Breath sounds equal, clear to auscultation bilaterally, no wheezes, no crackles, no accessory muscle use. HEART: Regular rate and rhythm, S1, S2 without murmur, rub or gallop. ABDOMEN: Soft, nontender, nondistended, normoactive bowel sounds, no guarding, no rebound, no hepatosplenomegaly, no masses. EXTREMITIES: 2+ pulses, warm, well-perfused, no edema. NEUROLOGICAL: Cranial nerves II through XII grossly intact. Normal speech, gait not observed. PSYCH: Normal mood, normal affect. SKIN: Warm, dry, normal turgor, no rashes or lesions noted Laboratory Results - last 24 hr 01/08/19 01/08/19 01/08/19 06:00 07:55 07:55 WBC 4.3 RBC 3.68 Hgb 10.2 L Hct 30.5 L MCV 82.8 MCH 27.6 MCHC 33.3 RDW 15.2 Plt Count 292 MPV 8.3 Absolute Neuts (auto) 2.3 Neutrophils % 52.4 Lymphocytes % 33.7 Monocytes % 11.8 H Eosinophils % 1.6 Basophils % 0.5 Nucleated RBC % 0 Sodium 142 Potassium 3.4 L Chloride 107 Carbon Dioxide 31 Anion Gap 5 L BUN 15.3 Creatinine 0.8 Est GFR (CKD-EPI)AfAm 85.97 Est GFR (CKD-EPI)NonAf 74.17 Random Glucose 96 Calcium 9.5 Total Bilirubin 0.3 AST 10 L ALT 9 L Alkaline Phosphatase 96 Ammonia Total Protein 6.9 Albumin 2.3 L Valproic Acid 61.1 01/08/19 09:18 WBC RBC Hgb Hct MCV MCH MCHC RDW Plt Count MPV Absolute Neuts (auto) Neutrophils % Lymphocytes % Monocytes % Eosinophils % Basophils % Nucleated RBC % Sodium Potassium Chloride Carbon Dioxide Anion Gap BUN Creatinine Est GFR (CKD-EPI)AfAm Est GFR (CKD-EPI)NonAf Random Glucose Calcium Total Bilirubin AST ALT Alkaline Phosphatase Ammonia 52.90 H Total Protein Albumin Valproic Acid Active Medications Generic Name Dose Route Start Last Admin Trade Name Linda PRN Reason Stop Dose Admin Al Hydroxide/Mg Hydroxide 30 ml 01/05/19 14:33 Mylanta Oral Suspension - PO Q6H PRN INDIGESTION Heparin Sodium (Porcine) 5,000 unit 01/06/19 06:00 01/08/19 05:50 Heparin - SQ 5,000 unit TID [facility] Administration Amino Acids 1,000 mls @ 42 mls/hr 01/06/19 11:45 01/08/19 09:32 Clinimix - IV 42 mls/hr Q23H [facility] Administration Lacosamide 200 mg 01/07/19 22:00 01/08/19 12:57 Vimpat Injection - IVPB 200 mg BID [facility] Administration Thiamine HCl 200 mg 01/08/19 10:00 01/08/19 09:30 Vitamin B1 Injection - IVPB 200 mg BID [facility] Administration Valproate Sodium 500 mg 01/07/19 22:00 01/08/19 09:32 Depacon Injection - IVPB 500 mg BID [facility] Administration ASSESSMENT/PLAN: 73 y/o lady with h/o MS, CVA s/p L sided weakness and contraction, R nephrectomy , PNA, constipation , Seizure disorder 05/12, septic shock form UTI 11/10, who presented from home with seizure activity. #Seizure like activity: - EEG with temporal spikes but no active seizures. -Dr. Hough- recommends d/c keppra and start depakote and Vimpat 200mg BID, more sedated today, no clinical seizure shown on EEG, will continue EEG for another 24 hrs and then do MRI of brain. #Encephalopathy: - MRI- no acute infart or worsening in MS plaques. - sepsis in setting of hypothermia could it have affected her brain activity? - if 48 hr EEG final report shows no abnomalities may consider an LP. - Thiamine one dose given - Ammonia level ordered- 52.9 #Fungal Sepsis due to UTI. - Dr. Rosa (ID): We are done with abx (day 7) stopped zosyn and fluconazole - repeat cxr was improved - observe off supportive measures. #Hypoglycemia: - resolved pt on IV Clinimix - glucose normal #TFT's: - repeat when in a steady state as out pt #replete K and Mg - replete as necessary. #Severe protein-calorie malnutrition - on IV clinimix 1L/day. DVT ppx: heparin 5000 TID SQ Code status, full code for now. Visit type - Emergency Visit Emergency Visit: No - New Patient This patient is new to me today: No - Critical Care Critical Care patient: No - Discharge Referral Referred to [facility] No ATTENDING PHYSICIAN STATEMENT I saw and evaluated the patient. I reviewed the resident's note and discussed the case with the resident. I agree with the resident's findings and plan as documented. SUBJECTIVE: OBJECTIVE: ASSESSMENT AND PLAN:
[2019-01-09] MEDS: HEPARIN NA (PORCINE) 5,000 UNITS/ML 1ML VIAL SQ SCH ×3 (06:00→22:52)
[2019-01-09 06:59] LABS: BASO % 0.3 % (0-2.0); EOS % 0.6 % (0-4.5); HEMATOCRIT 30.3 % (32.4-45.2); HEMOGLOBIN 10.1 GM/dL (10.7-15.3); LYMPH % 27.8 % (8-40); MCH 27.4 pg (25.7-33.7); MCHC 33.3 g/dl (32.0-36.0); MEAN CELL VOLUME 82.5 fl (80-96); MEAN PLT VOLUME 7.3 fl (7.5-11.1); MONO % 7.2 % (3.8-10.2); NEUT % 64.1 % (42.8-82.8); RBC 3.67 M/mm3 (3.60-5.2); WHITE BLOOD COUNT 4.8 K/mm3 (4.0-10.0)
[2019-01-09 07:24] LABS: ALBUMIN 2.3 g/dl (3.4-5.0); BILIRUBIN,TOTAL 0.3 mg/dL (0.2-1); BLOOD UREA NITROGEN 18.3 mg/dL (7-18); CALCIUM 9.5 mg/dL (8.5-10.1); CREATININE 0.7 mg/dL (0.55-1.3); POTASSIUM 3.2 mmol/L (3.5-5.1); TOT PROT 7.6 g/dl (6.4-8.2)
[2019-01-09 08:11] LABS: PLATELET COUNT 297 K/MM3 (134-434)
[2019-01-09] MEDS: AMINO ACIDS 4.25%/D5W 1,000 ML IV SCH (09:41)
[2019-01-09] MEDS: VALPROATE SODIUM 500 MG/5 ML VIAL IVPB SCH ×2 (09:45→22:52)
[2019-01-09] MEDS: Lacosamide 200 MG/20 ML VIAL IVPB SCH ×2 (09:52→22:52)
[2019-01-09] MEDS: THIAMINE HCL 200 MG/2 ML VIAL IVPB SCH ×2 (10:38→22:53)
--- NOTE | 2019-01-09 13:03 | PN ---
Progress Note, Physician History of Present Illness: events noted Chart reviewed Complete 72 hours of video EEG recording No electrical seizure On Depakote On Vimpat Slightly more awake today Not responding Doesn't follow any commands No spontaneous movements or seizure-like activity - Current Medication List Current Medications: Active Medications Al Hydroxide/Mg Hydroxide (Mylanta Oral Suspension -) 30 ml PO Q6H PRN PRN Reason: INDIGESTION Heparin Sodium (Porcine) (Heparin -) 5,000 unit SQ TID [facility] Last Admin: 01/09/19 06:00 Dose: 5,000 unit Amino Acids (Clinimix -) 1,000 mls @ 42 mls/hr IV Q23H [facility] Last Admin: 01/09/19 09:41 Dose: 42 mls/hr Lacosamide (Vimpat Injection -) 200 mg IVPB BID [facility] Last Admin: 01/09/19 09:52 Dose: 200 mg Thiamine HCl (Vitamin B1 Injection -) 200 mg IVPB BID [facility] Last Admin: 01/09/19 10:38 Dose: 200 mg Valproate Sodium (Depacon Injection -) 500 mg IVPB BID [facility] Last Admin: 01/09/19 09:45 Dose: 500 mg - Objective Vital Signs: Vital Signs Temperature 97.4 F L 01/09/19 06:00 Pulse Rate 85 01/09/19 06:00 Respiratory Rate 16 01/09/19 06:00 Blood Pressure 121/75 01/09/19 06:00 O2 Sat by Pulse Oximetry (%) 97 01/08/19 20:55 Constitutional: Yes: Well Nourished Eyes: Yes: WNL Neurological: Yes: Alert, Confusion Labs: CBC, BMP 01/09/19 06:45 01/09/19 06:45 INR, PTT INR 0.97 (0.83-1.09) 01/02/19 03:40 Problem List - Problems (1) Seizure Assessment/Plan: 1. Continued antiseizure medication the same 2. MRI of the brain without contrast 3. Seizure precautions. 4. DVT prophylaxis Code(s): R56.9 - UNSPECIFIED CONVULSIONS
--- NOTE | 2019-01-09 15:14 | PN ---
Physical Exam: SUBJECTIVE: Patient seen and examined at the bedside awake but still nonverbal and nonresponsive. OBJECTIVE: Vital Signs Period Temp Pulse Resp BP Sys/Varner Pulse Ox Last 24 Hr 97.0 F-97.7 F 70-90 16-20 121-154/75-99 97-98 GENERAL: The patient is awake, unresponsive, nonverbal in no acute distress. HEAD: Normal with no signs of trauma. EYES: Left lateral gaze reduced to mainly only left eye. NECK: supple. LUNGS: Breath sounds decreased b/l no wheezes, no crackles, no accessory muscle use. HEART: Regular rate and rhythm, S1, S2 without murmur, rub or gallop. ABDOMEN: Soft, nontender, nondistended, normoactive bowel sounds, no guarding, no rebound. EXTREMITIES: 2+ pulses, warm, well-perfused, no edema. Laboratory Results - last 24 hr 01/09/19 01/09/19 06:45 06:45 WBC 4.8 RBC 3.67 Hgb 10.1 L Hct 30.3 L MCV 82.5 MCH 27.4 MCHC 33.3 RDW 15.0 Plt Count 297 MPV 7.3 L D Absolute Neuts (auto) 3.1 Neutrophils % 64.1 D Lymphocytes % 27.8 Monocytes % 7.2 Eosinophils % 0.6 Basophils % 0.3 Nucleated RBC % 0 Sodium 143 Potassium 3.2 L Chloride 108 H Carbon Dioxide 30 Anion Gap 5 L BUN 18.3 H Creatinine 0.7 Est GFR (CKD-EPI)AfAm 101.03 Est GFR (CKD-EPI)NonAf 87.17 Random Glucose 99 Calcium 9.5 Total Bilirubin 0.3 AST 16 ALT 11 L Alkaline Phosphatase 91 Total Protein 7.6 Albumin 2.3 L Active Medications Generic Name Dose Route Start Last Admin Trade Name Freq PRN Reason Stop Dose Admin Al Hydroxide/Mg Hydroxide 30 ml 01/05/19 14:33 Mylanta Oral Suspension - PO Q6H PRN INDIGESTION Heparin Sodium (Porcine) 5,000 unit 01/06/19 06:00 01/09/19 14:07 Heparin - SQ 5,000 unit TID [facility] Administration Amino Acids 1,000 mls @ 42 mls/hr 01/06/19 11:45 01/09/19 09:41 Clinimix - IV 42 mls/hr Q23H [facility] Administration Lacosamide 200 mg 01/07/19 22:00 01/09/19 09:52 Vimpat Injection - IVPB 200 mg BID [facility] Administration Thiamine HCl 200 mg 01/08/19 10:00 01/09/19 10:38 Vitamin B1 Injection - IVPB 200 mg BID [facility] Administration Valproate Sodium 500 mg 01/07/19 22:00 01/09/19 09:45 Depacon Injection - IVPB 500 mg BID [facility] Administration ASSESSMENT/PLAN: 73 y/o lady with h/o MS, CVA s/p L sided weakness and contraction, R nephrectomy , PNA, constipation , Seizure disorder 05/12, septic shock form UTI 11/10, who presented from home with seizure activity. #Seizure like activity: - EEG with temporal spikes but no active seizures. -Dr. Hough- recommends continuing depakote and Vimpat 200mg BID, awake but nonverbal, no clinical seizure shown on EEG, will continue EEG for another 24 hrs and then do MRI of brain without contrast. #Encephalopathy: - prior MRI- no acute infart or worsening in MS plaques. - sepsis in setting of hypothermia could it have affected her brain activity? - if 72 hr EEG final report shows no abnormalities may consider an LP. - Thiamine one dose given - Ammonia level ordered- 52.9 #Fungal Sepsis due to UTI. - Dr. Rosa (ID): We are done with abx (day 7) stopped zosyn and fluconazole - repeat cxr was improved - observe off supportive measures. #Hypoglycemia: - resolved pt on IV Clinimix - glucose normal #TFT's: - repeat when in a steady state as out pt - TSH- 0.31 - Total T3- 59, Free T3- 1.5, Free T4- 1.08 all low. #replete K and Mg - repleted 30meqKCL IV one time dose - will continue to monitor daily. #Severe protein-calorie malnutrition - on IV clinimix 1L/day. DVT ppx: heparin 5000 TID SQ Code status, full code for now. Visit type - Emergency Visit Emergency Visit: No - New Patient This patient is new to me today: No - Critical Care Critical Care patient: No - Discharge Referral Referred to [facility] Med P.C.: No ATTENDING PHYSICIAN STATEMENT I saw and evaluated the patient. I reviewed the resident's note and discussed the case with the resident. I agree with the resident's findings and plan as documented. SUBJECTIVE: OBJECTIVE: ASSESSMENT AND PLAN:
--- NOTE | 2019-01-09 17:06 | PN ---
Teaching Attending Note Name of Resident: Prosper Hayes ATTENDING PHYSICIAN STATEMENT I saw and evaluated the patient. I reviewed the resident's note and discussed the case with the resident. I agree with the resident's findings and plan as documented. SUBJECTIVE: Patient is lying in bed with no acute distress. non verbal , continues to stare. OBJECTIVE: Vital Signs Temperature 96.2 F L 01/09/19 14:55 Pulse Rate 76 01/09/19 14:55 Respiratory Rate 18 01/09/19 14:55 Blood Pressure 152/86 01/09/19 14:55 O2 Sat by Pulse Oximetry (%) 98 01/09/19 09:00 GENERAL: The patient is awake, but aditya verbal, in no acute distress. HEAD: Normal with no signs of trauma. EYES: Left lateral gaze. NECK: supple. LUNGS: Breath sounds equal, clear to auscultation bilaterally, no wheezes, no crackles, no accessory muscle use. HEART: Regular rate and rhythm, S1, S2 without murmur, rub or gallop. ABDOMEN: Soft, nontender, nondistended, normoactive bowel sounds, no guarding, no rebound, no hepatosplenomegaly, no masses. EXTREMITIES: 2+ pulses, warm, well-perfused, no edema. NEUROLOGICAL: Cranial nerves II through XII grossly intact. Normal speech, gait not observed. PSYCH: Normal mood, normal affect. SKIN: Warm, dry, normal turgor, no rashes or lesions noted CBCD WBC 4.8 K/mm3 (4.0-10.0) 01/09/19 06:45 RBC 3.67 M/mm3 (3.60-5.2) 01/09/19 06:45 Hgb 10.1 GM/dL (10.7-15.3) L 01/09/19 06:45 Hct 30.3 % (32.4-45.2) L 01/09/19 06:45 MCV 82.5 fl (80-96) 01/09/19 06:45 MCHC 33.3 g/dl (32.0-36.0) 01/09/19 06:45 RDW 15.0 % (11.6-15.6) 01/09/19 06:45 Plt Count 297 K/MM3 (134-434) 01/09/19 06:45 MPV 7.3 fl (7.5-11.1) L D 01/09/19 06:45 CMP Sodium 143 mmol/L (136-145) 01/09/19 06:45 Potassium 3.2 mmol/L (3.5-5.1) L 01/09/19 06:45 Chloride 108 mmol/L (98-107) H 01/09/19 06:45 Carbon Dioxide 30 mmol/L (21-32) 01/09/19 06:45 Anion Gap 5 MMOL/L (8-16) L 01/09/19 06:45 BUN 18.3 mg/dL (7-18) H 01/09/19 06:45 Creatinine 0.7 mg/dL (0.55-1.3) 01/09/19 06:45 Random Glucose 99 mg/dL (74-106) 01/09/19 06:45 Calcium 9.5 mg/dL (8.5-10.1) 01/09/19 06:45 Total Bilirubin 0.3 mg/dL (0.2-1) 01/09/19 06:45 AST 16 U/L (15-37) 01/09/19 06:45 ALT 11 U/L (13-61) L 01/09/19 06:45 Alkaline Phosphatase 91 U/L (45-117) 01/09/19 06:45 Total Protein 7.6 g/dl (6.4-8.2) 01/09/19 06:45 Albumin 2.3 g/dl (3.4-5.0) L 01/09/19 06:45 CARDIAC ENZYMES Creatine Kinase 166 U/L (26-192) 01/02/19 03:40 Troponin I < 0.02 ng/ml (0.00-0.05) 01/02/19 03:40 Current Medications Generic Name Dose Route Start Last Admin Trade Name Freq PRN Reason Stop Dose Admin Al Hydroxide/Mg Hydroxide 30 ml 01/05/19 14:33 Mylanta Oral Suspension - PO Q6H PRN INDIGESTION Heparin Sodium (Porcine) 5,000 unit 01/06/19 06:00 01/09/19 14:07 Heparin - SQ 5,000 unit TID [facility] Administration Amino Acids 1,000 mls @ 42 mls/hr 01/06/19 11:45 01/09/19 09:41 Clinimix - IV 42 mls/hr Q23H [facility] Administration Potassium Chloride 10 meq in 100 mls @ 100 mls/hr 01/09/19 15:30 Potassium Chloride 10 Meq Premix Ivpb - IVPB 01/09/19 18:29 Q60M [facility] Lacosamide 200 mg 01/07/19 22:00 01/09/19 09:52 Vimpat Injection - IVPB 200 mg BID [facility] Administration Thiamine HCl 200 mg 01/08/19 10:00 01/09/19 10:38 Vitamin B1 Injection - IVPB 200 mg BID [facility] Administration Valproate Sodium 500 mg 01/07/19 22:00 01/09/19 09:45 Depacon Injection - IVPB 500 mg BID [facility] Administration 01/02/19 06:30 Urine - Urine - Catheterized Yeast/Fungus Identification - Final Magali Albicans 01/02/19 11:20 Blood - Peripheral Venous Blood Culture - Final NO GROWTH AFTER 5 DAYS INCUBATION 01/02/19 11:15 Blood - Peripheral Venous Blood Culture - Final NO GROWTH AFTER 5 DAYS INCUBATION 01/02/19 06:30 Urine - Urine - Catheterized Urine Culture - Final Yeast Like Organism MRI of the brain: no change from 05/06/2018 ASSESSMENT AND PLAN: Patient is a 73 y/o female with PMhx of MS, CVA s/p L sided weakness and contraction, R nephrectomy, PNA, constipation , Seizure disorder 05/12, septic shock form UTI 11/10, who presented from home with seizure activity. # s/p acute Seizure activity: On keppra and Vimpat continue, Dr. Hough neuro on the case, patient is on 48 hr video EEG , as per neuro is negative, will have another 24 hr of EEG, but would like the patient to have the MRI. no seizure activity so far per Dr. Hough. MRI ordered. follow the result # Encephalopathy: possible due to seizure activity; the cause is unknown so far , no acute infarct or worsening of MS plaques on MRI. Video EEG in progress. neuro on the case if no change in mentation will discuss with Neuro possible the need for LP. # Sepsis: due to UTI. on zosyn and fluconazol continue # Nutrition : on Clinimix day 3 . monitor electrolytes # Hypoglycemia: resolved, Clinimix # Severe protein calorie malnutrition. # Abnl TFTs: repeat when in a steady state as out pt Code status, full code.
[2019-01-09] MEDS: KCL 10 MEQ IVPB 10 MEQ/100 ML INFUS.BAG IVPB SCH ×3 (17:46→21:32)
[2019-01-10] MEDS: HEPARIN NA (PORCINE) 5,000 UNITS/ML 1ML VIAL SQ SCH ×3 (06:01→22:46)
[2019-01-10] MEDS: AMINO ACIDS 4.25%/D5W 1,000 ML IV SCH (07:16)
[2019-01-10 07:38] LABS: BASO % 0.2 % (0-2.0); EOS % 1.4 % (0-4.5); HEMATOCRIT 30.2 % (32.4-45.2); LYMPH % 30.8 % (8-40); MCH 27.5 pg (25.7-33.7); MCHC 33.2 g/dl (32.0-36.0); MEAN CELL VOLUME 82.9 fl (80-96); MONO % 9.1 % (3.8-10.2); NEUT % 58.5 % (42.8-82.8); RBC 3.65 M/mm3 (3.60-5.2); WHITE BLOOD COUNT 4.8 K/mm3 (4.0-10.0)
[2019-01-10 08:24] LABS: PLATELET COUNT 331 K/MM3 (134-434)
[2019-01-10 09:09] LABS: ALBUMIN 2.4 g/dl (3.4-5.0); BILIRUBIN,TOTAL 0.1 mg/dL (0.2-1); BLOOD UREA NITROGEN 17.8 mg/dL (7-18); CALCIUM 9.5 mg/dL (8.5-10.1); CREATININE 0.7 mg/dL (0.55-1.3); POTASSIUM 3.5 mmol/L (3.5-5.1); TOT PROT 7.1 g/dl (6.4-8.2)
[2019-01-10] MEDS: Lacosamide 200 MG/20 ML VIAL IVPB SCH ×2 (10:38→22:46)
[2019-01-10] MEDS: VALPROATE SODIUM 500 MG/5 ML VIAL IVPB SCH ×2 (10:38→22:47)
[2019-01-10] MEDS: THIAMINE HCL 200 MG/2 ML VIAL IVPB SCH ×2 (10:38→22:47)
--- NOTE | 2019-01-10 11:32 | PN ---
Progress Note (short form) - Note Progress Note: events noted chart review No clinical seizure over the past 24 hours More attentive today Eye tracking movements Does not follow commands Problem List - Problems (1) Seizure Code(s): R56.9 - UNSPECIFIED CONVULSIONS
--- NOTE | 2019-01-10 16:40 | PN ---
Physical Exam: SUBJECTIVE: Patient seen and examined at the bedside not in acute distress. No acute events overnight and no alarms on tele. OBJECTIVE: Vital Signs Period Temp Pulse Resp BP Sys/Varner Pulse Ox Last 24 Hr 97.1 F-98.9 F 79-98 16-20 138-148/86-97 97-97 GENERAL: The patient is awake, nonverbal, and nonresponsive to commands. EYES: Reduced left lateral gaze, closes eyes in response to flash light in eye. NECK: supple. LUNGS: Breath sounds decreased b/l, no wheezes, no crackles, no accessory muscle use. HEART: Regular rate and rhythm, S1, S2 without murmur, rub or gallop. ABDOMEN: Soft, nontender, nondistended, normoactive bowel sounds, no guarding, no rebound. EXTREMITIES: warm, well-perfused, no edema. SKIN: Warm, dry, no rashes or lesions noted Laboratory Results - last 24 hr 01/10/19 01/10/19 06:10 06:10 WBC 4.8 RBC 3.65 Hgb 10.0 L Hct 30.2 L MCV 82.9 MCH 27.5 MCHC 33.2 RDW 15.0 Plt Count 331 MPV 3.0 L Absolute Neuts (auto) 2.8 Neutrophils % 58.5 Lymphocytes % 30.8 Monocytes % 9.1 Eosinophils % 1.4 D Basophils % 0.2 Nucleated RBC % 0 Sodium 144 Potassium 3.5 Chloride 109 H Carbon Dioxide 28 Anion Gap 7 L BUN 17.8 Creatinine 0.7 Est GFR (CKD-EPI)AfAm 101.03 Est GFR (CKD-EPI)NonAf 87.17 Random Glucose 83 Calcium 9.5 Total Bilirubin 0.1 L AST 28 ALT 16 Alkaline Phosphatase 98 Total Protein 7.1 Albumin 2.4 L Active Medications Generic Name Dose Route Start Last Admin Trade Name Freq PRN Reason Stop Dose Admin Al Hydroxide/Mg Hydroxide 30 ml 01/05/19 14:33 Mylanta Oral Suspension - PO Q6H PRN INDIGESTION Heparin Sodium (Porcine) 5,000 unit 01/06/19 06:00 01/10/19 14:37 Heparin - SQ 5,000 unit TID [facility] Administration Amino Acids 1,000 mls @ 42 mls/hr 01/06/19 11:45 01/10/19 07:16 Clinimix - IV 42 mls/hr Q23H [facility] Administration Lacosamide 200 mg 01/07/19 22:00 01/10/19 10:38 Vimpat Injection - IVPB 200 mg BID [facility] Administration Thiamine HCl 200 mg 01/08/19 10:00 01/10/19 10:38 Vitamin B1 Injection - IVPB 200 mg BID [facility] Administration Valproate Sodium 500 mg 01/07/19 22:00 01/10/19 10:38 Depacon Injection - IVPB 500 mg BID [facility] Administration ASSESSMENT/PLAN: 73 y/o lady with h/o MS, CVA s/p L sided weakness and contraction, R nephrectomy , PNA, constipation , Seizure disorder 05/12, septic shock form UTI 11/10, who presented from home with seizure activity. #Seizure like activity: - EEG with temporal spikes but no active seizures. -Dr. Hough- recommends continuing depakote and Vimpat 200mg BID, awake but nonverbal, no clinical seizure shown on EEG, will wait for MRI results and reassess accordingly. #Encephalopathy: - prior MRI- no acute infart or worsening in MS plaques. - 72 hr EEG completed, no seizure like activity shown on monitor throughout. - MRI w/o contrast brain pending. #Fungal Sepsis due to UTI. - off abx day 2 - observe off supportive measures. #Hypoglycemia: - resolved pt on IV Clinimix - glucose normal #TFT's: - repeat when in a steady state as out pt - TSH- 0.31 - Total T3- 59, Free T3- 1.5, Free T4- 1.08 all low. #replete K and Mg - will continue to monitor daily. #Severe protein-calorie malnutrition - on IV clinimix 1L/day. DVT ppx: heparin 5000 TID SQ Code status, full code for now. Visit type - Emergency Visit Emergency Visit: No - New Patient This patient is new to me today: No - Critical Care Critical Care patient: No - Discharge Referral Referred to [facility] Med P.C.: No ATTENDING PHYSICIAN STATEMENT I saw and evaluated the patient. I reviewed the resident's note and discussed the case with the resident. I agree with the resident's findings and plan as documented. SUBJECTIVE: OBJECTIVE: ASSESSMENT AND PLAN:
[2019-01-10] MEDS ORDERED: GLYCERIN 1 RECTAL SUPPOSITORY, ADULT RC PRN (18:05)
--- NOTE | 2019-01-10 20:32 | PN ---
Teaching Attending Note Name of Resident: Prosper Hayes ATTENDING PHYSICIAN STATEMENT I saw and evaluated the patient. I reviewed the resident's note and discussed the case with the resident. I agree with the resident's findings and plan as documented. SUBJECTIVE: Patient is awake but does not follow any command, non verbal just stares . OBJECTIVE: Vital Signs Temperature 98.4 F 01/10/19 14:15 Pulse Rate 95 H 01/10/19 14:15 Respiratory Rate 20 01/10/19 14:15 Blood Pressure 138/87 01/10/19 14:15 O2 Sat by Pulse Oximetry (%) 97 01/10/19 09:00 GENERAL: The patient is awake, but non verbal, in no acute distress. HEAD: Normal with no signs of trauma. EYES: Left lateral gaze. NECK: supple. LUNGS: Breath sounds equal, clear to auscultation bilaterally, no wheezes, no crackles, no accessory muscle use. HEART: Regular rate and rhythm, S1, S2 without murmur, rub or gallop. ABDOMEN: Soft, nontender, nondistended, normoactive bowel sounds, no guarding, no rebound, no hepatosplenomegaly, no masses. EXTREMITIES: 2+ pulses, warm, well-perfused, no edema. NEUROLOGICAL: Cranial nerves II through XII grossly intact. Normal speech, gait not observed. PSYCH: Normal mood, normal affect. SKIN: Warm, dry, normal turgor, no rashes or lesions noted CBCD WBC 4.8 K/mm3 (4.0-10.0) 01/10/19 06:10 RBC 3.65 M/mm3 (3.60-5.2) 01/10/19 06:10 Hgb 10.0 GM/dL (10.7-15.3) L 01/10/19 06:10 Hct 30.2 % (32.4-45.2) L 01/10/19 06:10 MCV 82.9 fl (80-96) 01/10/19 06:10 MCHC 33.2 g/dl (32.0-36.0) 01/10/19 06:10 RDW 15.0 % (11.6-15.6) 01/10/19 06:10 Plt Count 331 K/MM3 (134-434) 01/10/19 06:10 MPV 3.0 fl (7.5-11.1) L 01/10/19 06:10 CMP Sodium 144 mmol/L (136-145) 01/10/19 06:10 Potassium 3.5 mmol/L (3.5-5.1) 01/10/19 06:10 Chloride 109 mmol/L (98-107) H 01/10/19 06:10 Carbon Dioxide 28 mmol/L (21-32) 01/10/19 06:10 Anion Gap 7 MMOL/L (8-16) L 01/10/19 06:10 BUN 17.8 mg/dL (7-18) 01/10/19 06:10 Creatinine 0.7 mg/dL (0.55-1.3) 01/10/19 06:10 Random Glucose 83 mg/dL (74-106) 01/10/19 06:10 Calcium 9.5 mg/dL (8.5-10.1) 01/10/19 06:10 Total Bilirubin 0.1 mg/dL (0.2-1) L 01/10/19 06:10 AST 28 U/L (15-37) 01/10/19 06:10 ALT 16 U/L (13-61) 01/10/19 06:10 Alkaline Phosphatase 98 U/L (45-117) 01/10/19 06:10 Total Protein 7.1 g/dl (6.4-8.2) 01/10/19 06:10 Albumin 2.4 g/dl (3.4-5.0) L 01/10/19 06:10 CARDIAC ENZYMES Creatine Kinase 166 U/L (26-192) 01/02/19 03:40 Troponin I < 0.02 ng/ml (0.00-0.05) 01/02/19 03:40 Current Medications Generic Name Dose Route Start Last Admin Trade Name Freq PRN Reason Stop Dose Admin Al Hydroxide/Mg Hydroxide 30 ml 01/05/19 14:33 Mylanta Oral Suspension - PO Q6H PRN INDIGESTION Glycerin 1 each 01/10/19 18:05 Glycerin Suppository Adult - RC Q24H PRN CONSTIPATION Heparin Sodium (Porcine) 5,000 unit 01/06/19 06:00 01/10/19 14:37 Heparin - SQ 5,000 unit TID [facility] Administration Amino Acids 1,000 mls @ 42 mls/hr 01/06/19 11:45 01/10/19 07:16 Clinimix - IV 42 mls/hr Q23H [facility] Administration Lacosamide 200 mg 01/07/19 22:00 01/10/19 10:38 Vimpat Injection - IVPB 200 mg BID [facility] Administration Thiamine HCl 200 mg 01/08/19 10:00 01/10/19 10:38 Vitamin B1 Injection - IVPB 200 mg BID [facility] Administration Valproate Sodium 500 mg 01/07/19 22:00 01/10/19 10:38 Depacon Injection - IVPB 500 mg BID [facility] Administration Home Medications Medication Instructions Recorded levETIRAcetam [Keppra -] 250 mg PO BID 01/02/19 MRI of the brain: no change from 05/06/2018 ASSESSMENT AND PLAN: Patient is a 73 y/o female with PMhx of MS, CVA s/p L sided weakness and contraction, R nephrectomy, PNA, constipation , Seizure disorder 05/12, septic shock form UTI 11/10, who presented from home with seizure activity. # s/p acute Seizure activity: On keppra and Vimpat continue, Dr. Hough neuro on the case, patient is s/p 48 hr video EEG , as per neuro is negative, with another 24 hr of EEG, but would like the patient to have the MRI. no seizure activity so far per Dr. Hough. MRI ordered. follow the result # Encephalopathy: possible due to seizure activity; the cause is unknown so far , no acute infarct or worsening of MS plaques on MRI. Video EEG in progress. neuro on the case if no change in mentation will discuss with Neuro for possible the need for LP. # Sepsis: due to UTI. on zosyn and fluconazol continue # Nutrition : on Clinimix day 4 . monitor electrolytes # Hypoglycemia: resolved, Clinimix # Severe protein calorie malnutrition. # Abnl TFTs: repeat when in a steady state as out pt Code status, full code.
[2019-01-11] MEDS: HEPARIN NA (PORCINE) 5,000 UNITS/ML 1ML VIAL SQ SCH ×3 (06:03→22:00)
[2019-01-11] MEDS: AMINO ACIDS 4.25%/D5W 1,000 ML IV SCH (06:03)
[2019-01-11 07:01] LABS: ALBUMIN 2.3 g/dl (3.4-5.0); BILIRUBIN,TOTAL 0.4 mg/dL (0.2-1); BLOOD UREA NITROGEN 21.6 mg/dL (7-18); CALCIUM 9.3 mg/dL (8.5-10.1); CREATININE 0.7 mg/dL (0.55-1.3); POTASSIUM 3.2 mmol/L (3.5-5.1); TOT PROT 6.7 g/dl (6.4-8.2)
[2019-01-11 07:05] LABS: BASO % 0.6 % (0-2.0); EOS % 0.8 % (0-4.5); HEMATOCRIT 29.6 % (32.4-45.2); HEMOGLOBIN 9.8 GM/dL (10.7-15.3); LYMPH % 28.3 % (8-40); MCH 27.6 pg (25.7-33.7); MEAN CELL VOLUME 83.5 fl (80-96); MEAN PLT VOLUME 8.2 fl (7.5-11.1); MONO % 9.5 % (3.8-10.2); NEUT % 60.8 % (42.8-82.8); PLATELET COUNT 313 K/MM3 (134-434); RBC 3.54 M/mm3 (3.60-5.2); RDW 14.8 % (11.6-15.6)
[2019-01-11] MEDS: THIAMINE HCL 200 MG/2 ML VIAL IVPB SCH ×2 (09:25→22:00)
[2019-01-11] MEDS: Lacosamide 200 MG/20 ML VIAL IVPB SCH ×2 (09:57→22:00)
[2019-01-11] MEDS: VALPROATE SODIUM 500 MG/5 ML VIAL IVPB SCH ×2 (10:42→22:00)
--- NOTE | 2019-01-11 18:09 | PN ---
Progress Note (short form) - Note Progress Note: Patient has no change i n mental status , eyes open but non verbal. Vital Signs Temperature 97.7 F 01/11/19 14:00 Pulse Rate 83 01/11/19 14:00 Respiratory Rate 18 01/11/19 14:00 Blood Pressure 134/86 01/11/19 14:00 O2 Sat by Pulse Oximetry (%) 68 L 01/11/19 09:00 GENERAL: The patient is awake, but non verbal, in no acute distress. HEAD: Normal with no signs of trauma. EYES: Left lateral gaze. NECK: supple. LUNGS: Breath sounds equal, clear to auscultation bilaterally, no wheezes, no crackles, no accessory muscle use. HEART: Regular rate and rhythm, S1, S2 without murmur, rub or gallop. ABDOMEN: Soft, nontender, nondistended, normoactive bowel sounds, no guarding, no rebound, no hepatosplenomegaly, no masses. EXTREMITIES: 2+ pulses, warm, well-perfused, no edema. NEUROLOGICAL: Cranial nerves II through XII grossly intact. non verbal. PSYCH: Non verbal , normal affect. SKIN: Warm, dry, normal turgor, no rashes or lesions noted CBCD WBC 5.0 K/mm3 (4.0-10.0) 01/11/19 05:55 RBC 3.54 M/mm3 (3.60-5.2) L 01/11/19 05:55 Hgb 9.8 GM/dL (10.7-15.3) L 01/11/19 05:55 Hct 29.6 % (32.4-45.2) L 01/11/19 05:55 MCV 83.5 fl (80-96) 01/11/19 05:55 MCHC 33.0 g/dl (32.0-36.0) 01/11/19 05:55 RDW 14.8 % (11.6-15.6) 01/11/19 05:55 Plt Count 313 K/MM3 (134-434) 01/11/19 05:55 MPV 8.2 fl (7.5-11.1) D 01/11/19 05:55 CMP Sodium 142 mmol/L (136-145) 01/11/19 05:55 Potassium 3.2 mmol/L (3.5-5.1) L 01/11/19 05:55 Chloride 106 mmol/L (98-107) 01/11/19 05:55 Carbon Dioxide 31 mmol/L (21-32) 01/11/19 05:55 Anion Gap 5 MMOL/L (8-16) L 01/11/19 05:55 BUN 21.6 mg/dL (7-18) H 01/11/19 05:55 Creatinine 0.7 mg/dL (0.55-1.3) 01/11/19 05:55 Random Glucose 77 mg/dL (74-106) 01/11/19 05:55 Calcium 9.3 mg/dL (8.5-10.1) 01/11/19 05:55 Total Bilirubin 0.4 mg/dL (0.2-1) 01/11/19 05:55 AST 25 U/L (15-37) 01/11/19 05:55 ALT 16 U/L (13-61) 01/11/19 05:55 Alkaline Phosphatase 87 U/L (45-117) 01/11/19 05:55 Total Protein 6.7 g/dl (6.4-8.2) 01/11/19 05:55 Albumin 2.3 g/dl (3.4-5.0) L 01/11/19 05:55 CARDIAC ENZYMES Creatine Kinase 166 U/L (26-192) 01/02/19 03:40 Troponin I < 0.02 ng/ml (0.00-0.05) 01/02/19 03:40 Current Medications Generic Name Dose Route Start Last Admin Trade Name Nickq PRN Reason Stop Dose Admin Glycerin 1 each 01/10/19 18:05 Glycerin Suppository Adult - RC Q24H PRN CONSTIPATION Heparin Sodium (Porcine) 5,000 unit 01/06/19 06:00 01/11/19 13:08 Heparin - SQ 5,000 unit TID KRYSTEN Administration Amino Acids 1,000 mls @ 42 mls/hr 01/06/19 11:45 01/11/19 06:03 Clinimix - IV 42 mls/hr Q23H K[facility]STEN Administration Lacosamide 200 mg 01/07/19 22:00 01/11/19 09:57 Vimpat Injection - IVPB 200 mg BID K[facility]STEN Administration Thiamine HCl 200 mg 01/08/19 10:00 01/11/19 09:25 Vitamin B1 Injection - IVPB 200 mg BID KRYSTEN Administration Valproate Sodium 500 mg 01/07/19 22:00 01/11/19 10:42 Depacon Injection - IVPB 500 mg BID KRYSTEN Administration Home Medications Medication Instructions Recorded levETIRAcetam [Keppra -] 250 mg PO BID 01/02/19 MRI of the brain: no change from 05/06/2018 ASSESSMENT AND PLAN: Patient is a 73 y/o female with PMhx of MS, CVA s/p L sided weakness and contraction, R nephrectomy, PNA, constipation , Seizure disorder 05/12, septic shock form UTI 11/10, who presented from home with seizure activity. # s/p acute Seizure activity: On keppra and Vimpat continue, Dr. Hough neuro on the case,s/p eEG : as per neuro is negative, MRI result reviewed , no seizure activity so far per Dr. Hough. # Encephalopathy: possible due to seizure activity; the cause is unknown so far , no acute infarct or worsening of MS plaques on MRI.s/p Video EEG neuro on the case if no change in mentation will discuss with Neuro possible the need for LP. # Sepsis: due to UTI. on zosyn and fluconazol continue # Nutrition : on Clinimix day 3 . monitor electrolytes # Hypoglycemia: resolved, Clinimix # Severe protein calorie malnutrition. # Abnl TFTs: repeat when in a steady state as out pt Code status, full code. Visit type - Emergency Visit Emergency Visit: Yes ED Registration Date: 01/02/19 Care time: The patient presented to the Emergency Department on the above date and was hospitalized for further evaluation of their emergent condition. - New Patient This patient is new to me today: No - Critical Care Critical Care patient: No - Discharge Referral Referred to [facility] Med P.C[facility] No
[2019-01-12] MEDS: AMINO ACIDS 4.25%/D5W 1,000 ML IV SCH (04:58)
[2019-01-12] MEDS: HEPARIN NA (PORCINE) 5,000 UNITS/ML 1ML VIAL SQ SCH ×3 (06:09→21:51)
[2019-01-12] MEDS: KCL 10 MEQ IVPB 10 MEQ/100 ML INFUS.BAG IVPB SCH ×3 (08:30→11:22)
--- NOTE | 2019-01-12 08:41 | PN ---
Teaching Attending Note Name of Resident: Fouzia Jay ATTENDING PHYSICIAN STATEMENT I saw and evaluated the patient. I reviewed the resident's note and discussed the case with the resident. I agree with the resident's findings and plan as documented. SUBJECTIVE: No new changes, no change in her mentation. OBJECTIVE: Vital Signs Temperature 98.2 F 01/12/19 06:59 Pulse Rate 60 01/12/19 06:59 Respiratory Rate 16 01/12/19 06:59 Blood Pressure 125/71 01/12/19 06:59 O2 Sat by Pulse Oximetry (%) 95 01/11/19 20:43 GENERAL: The patient is awake, but non verbal, in no acute distress. HEAD: Normal with no signs of trauma. EYES: Left lateral gaze. NECK: supple. LUNGS: Breath sounds equal, clear to auscultation bilaterally, no wheezes, no crackles, no accessory muscle use. HEART: Regular rate and rhythm, S1, S2 without murmur, rub or gallop. ABDOMEN: Soft, nontender, nondistended, normoactive bowel sounds, no guarding, no rebound, no hepatosplenomegaly, no masses. EXTREMITIES: 2+ pulses, warm, well-perfused, no edema. NEUROLOGICAL: Cranial nerves II through XII grossly intact. non verbal. PSYCH: Non verbal , normal affect. SKIN: Warm, dry, normal turgor, no rashes or lesions noted CBCD WBC 5.0 K/mm3 (4.0-10.0) 01/11/19 05:55 RBC 3.54 M/mm3 (3.60-5.2) L 01/11/19 05:55 Hgb 9.8 GM/dL (10.7-15.3) L 01/11/19 05:55 Hct 29.6 % (32.4-45.2) L 01/11/19 05:55 MCV 83.5 fl (80-96) 01/11/19 05:55 MCHC 33.0 g/dl (32.0-36.0) 01/11/19 05:55 RDW 14.8 % (11.6-15.6) 01/11/19 05:55 Plt Count 313 K/MM3 (134-434) 01/11/19 05:55 MPV 8.2 fl (7.5-11.1) D 01/11/19 05:55 CMP Sodium 142 mmol/L (136-145) 01/11/19 05:55 Potassium 3.2 mmol/L (3.5-5.1) L 01/11/19 05:55 Chloride 106 mmol/L (98-107) 01/11/19 05:55 Carbon Dioxide 31 mmol/L (21-32) 01/11/19 05:55 Anion Gap 5 MMOL/L (8-16) L 01/11/19 05:55 BUN 21.6 mg/dL (7-18) H 01/11/19 05:55 Creatinine 0.7 mg/dL (0.55-1.3) 01/11/19 05:55 Random Glucose 77 mg/dL (74-106) 01/11/19 05:55 Calcium 9.3 mg/dL (8.5-10.1) 01/11/19 05:55 Total Bilirubin 0.4 mg/dL (0.2-1) 01/11/19 05:55 AST 25 U/L (15-37) 01/11/19 05:55 ALT 16 U/L (13-61) 01/11/19 05:55 Alkaline Phosphatase 87 U/L (45-117) 01/11/19 05:55 Total Protein 6.7 g/dl (6.4-8.2) 01/11/19 05:55 Albumin 2.3 g/dl (3.4-5.0) L 01/11/19 05:55 CARDIAC ENZYMES Creatine Kinase 166 U/L (26-192) 01/02/19 03:40 Troponin I < 0.02 ng/ml (0.00-0.05) 01/02/19 03:40 Current Medications Generic Name Dose Route Start Last Admin Trade Name Freq PRN Reason Stop Dose Admin Glycerin 1 each 01/10/19 18:05 Glycerin Suppository Adult - RC Q24H PRN CONSTIPATION Heparin Sodium (Porcine) 5,000 unit 01/06/19 06:00 01/12/19 06:09 Heparin - SQ 5,000 unit TID KRYSTEN Administration Amino Acids 1,000 mls @ 42 mls/hr 01/06/19 11:45 01/12/19 04:58 Clinimix - IV 42 mls/hr Q23H KRYSTEN Administration Potassium Chloride 10 meq in 100 mls @ 100 mls/hr 01/12/19 07:45 01/12/19 08: 30 Potassium Chloride 10 Meq Premix Ivpb - IVPB 01/12/19 10:44 100 mls/hr Q60M KRYSTEN Administration Lacosamide 200 mg 01/07/19 22:00 01/11/19 22:00 Vimpat Injection - IVPB 200 mg BID KRYSTEN Administration Thiamine HCl 200 mg 01/08/19 10:00 01/11/19 22:00 Vitamin B1 Injection - IVPB 200 mg BID KRYSTEN Administration Valproate Sodium 500 mg 01/07/19 22:00 01/11/19 22:00 Depacon Injection - IVPB 500 mg BID KRYSTEN Administration Home Medications Medication Instructions Recorded levETIRAcetam [Keppra -] 250 mg PO BID 01/02/19 MRI of the brain: no change from 05/06/2018 ASSESSMENT AND PLAN: Patient is a 73 y/o female with PMhx of MS, CVA s/p L sided weakness and contraction, R nephrectomy, PNA, constipation , Seizure disorder 05/12, septic shock form UTI 11/10, who presented from home with seizure activity. # s/p acute Seizure activity: On keppra and Vimpat continue, Dr. Hough neuro on the case,s/p eEG : as per neuro is negative, MRI result reviewed , no seizure activity so far per Dr. Hough. # Encephalopathy: possible due to seizure activity; the cause is unknown so far , no acute infarct or worsening of MS plaques on MRI.s/p Video EEG neuro on the case if no change in mentation will discuss with Neuro possible the need for LP. # Sepsis: due to UTI. on zosyn and fluconazol continue # Nutrition : on Clinimix day 4 . monitor electrolytes # Hypoglycemia: resolved, Clinimix # Severe protein calorie malnutrition. # Abnl TFTs: repeat when in a steady state as out pt Code status, full code. will need to discuss with the patient's family Gtube, since n improvement,
--- NOTE | 2019-01-12 11:31 | PN ---
Physical Exam: SUBJECTIVE: Patient seen and examined at bedside this morning. No acute events overnight. Patient remains nonverbal and not following commands. No seizure like or spontaneous movement noted. OBJECTIVE: Vital Signs Temperature 98.1 F 01/12/19 10:00 Pulse Rate 60 01/12/19 10:00 Respiratory Rate 18 01/12/19 10:00 Blood Pressure 121/70 01/12/19 10:00 O2 Sat by Pulse Oximetry (%) 95 01/11/19 20:43 GENERAL: The patient is awake. Does not follow commands. Not in acute distress. EYES: Pupils reactive to light bilaterally, sclera anicteric, conjunctiva clear. NECK: Trachea midline, full range of motion, supple. LUNGS: Breath sounds equal, clear to auscultation anteriorly HEART: Regular rate and rhythm, S1, S2 without murmur, rub or gallop. ABDOMEN: Soft, does not grimace on palpation, nondistended, normoactive bowel sounds. EXTREMITIES: +LUE contracted. LE: 2+pulses, no peripheral edema NEUROLOGICAL: Does not follow commands. Gaze fixed to the right, spontaneously moves to left, but does not track. SKIN: Warm, dry, normal turgor, no rashes or lesions noted Active Medications Generic Name Dose Route Start Last Admin Trade Name Freq PRN Reason Stop Dose Admin Glycerin 1 each 01/10/19 18:05 Glycerin Suppository Adult - RC Q24H PRN CONSTIPATION Heparin Sodium (Porcine) 5,000 unit 01/06/19 06:00 01/12/19 06:09 Heparin - SQ 5,000 unit TID KRYSTEN Administration Amino Acids 1,000 mls @ 42 mls/hr 01/06/19 11:45 01/12/19 04:58 Clinimix - IV 42 mls/hr Q23H KRYSTEN Administration Lacosamide 200 mg 01/07/19 22:00 01/11/19 22:00 Vimpat Injection - IVPB 200 mg BID KRYSTEN Administration Thiamine HCl 200 mg 01/08/19 10:00 01/11/19 22:00 Vitamin B1 Injection - IVPB 200 mg BID KRYSTEN Administration Valproate Sodium 500 mg 01/07/19 22:00 01/11/19 22:00 Depacon Injection - IVPB 500 mg BID KRYSTEN Administration ASSESSMENT/PLAN: Patient is a 73 year old female with past medical history of MS, CVA (2013, with left sided residual deficits, LUE contracture), R nephrectomy, presented to the ED due to seizures. #Seizures -Continue Vimpat 200mg BID and Valproate 500mg BID -Brain MRI: No definite interval changes in comparison to previous MRIs. Moderate to marked periventricular and subcortical chronic microvascular ischemic changes. Stable meningiomas within the right posterior cranial fossa. -72 hour EEG done, no reported seizures as per neuro -Seizure precautions -Neurology (Dr. Hough) consulted. #Sepsis 2/2 UTI, resolved -Zosyn and fluconazole discontinued -ID (Dr. Rosa) consulted. #Acute metabolic encephalopathy -Brain MRI done - no interval change -72 hour EEG - no reported events #Hypoglycemia -likely from poor oral intake -Resolved on IV Clinimix #FEN -IV D5/Ns @100cc/hr -Electrolytes wnl, routine bmp monitoring -Keep NPO for now #Prophylaxis -Heparin 5000u sq tid #Disposition -ICU for closer monitoring -full code Visit type - Emergency Visit Emergency Visit: Yes ED Registration Date: 01/02/19 Care time: The patient presented to the Emergency Department on the above date and was hospitalized for further evaluation of their emergent condition. - New Patient This patient is new to me today: Yes Date on this admission: 01/12/19 - Critical Care Critical Care patient: No ATTENDING PHYSICIAN STATEMENT I saw and evaluated the patient. I reviewed the resident's note and discussed the case with the resident. I agree with the resident's findings and plan as documented. SUBJECTIVE: OBJECTIVE: ASSESSMENT AND PLAN:
[2019-01-12] MEDS: Lacosamide 200 MG/20 ML VIAL IVPB SCH ×2 (12:23→21:50)
[2019-01-12] MEDS: THIAMINE HCL 200 MG/2 ML VIAL IVPB SCH ×2 (13:04→21:51)
[2019-01-12] MEDS: VALPROATE SODIUM 500 MG/5 ML VIAL IVPB SCH ×2 (13:30→21:50)
[2019-01-13] MEDS: AMINO ACIDS 4.25%/D5W 1,000 ML IV SCH (04:31)
[2019-01-13] MEDS: HEPARIN NA (PORCINE) 5,000 UNITS/ML 1ML VIAL SQ SCH ×2 (05:34→22:30)
[2019-01-13 06:39] LABS: EOS % 1.9 % (0-4.5); HEMATOCRIT 27.9 % (32.4-45.2); HEMOGLOBIN 9.1 GM/dL (10.7-15.3); MCH 23.7 pg (25.7-33.7); MCHC 32.5 g/dl (32.0-36.0); MEAN CELL VOLUME 72.9 fl (80-96); MEAN PLT VOLUME 9.2 fl (7.5-11.1); MONO % 2.7 % (3.8-10.2); NEUT % 78.4 % (42.8-82.8); PLATELET COUNT 161 K/MM3 (134-434); RBC 3.83 M/mm3 (3.60-5.2); RDW 26.7 % (11.6-15.6); WHITE BLOOD COUNT 21.8 K/mm3 (4.0-10.0)
[2019-01-13 07:11] LABS: BLOOD UREA NITROGEN 20.9 mg/dL (7-18); CALCIUM 9.5 mg/dL (8.5-10.1); CREATININE 0.6 mg/dL (0.55-1.3); PHOSPHOROUS 1.8 mg/dL (2.5-4.9); POTASSIUM 3.5 mmol/L (3.5-5.1)
[2019-01-13] MEDS: Lacosamide 200 MG/20 ML VIAL IVPB SCH ×2 (09:30→21:53)
[2019-01-13] MEDS ORDERED: SODIUM PHOSPHATE - 30 MM in DEXTROSE 5%-WATER - 500 ML IVPB ONE (09:30)
[2019-01-13] MEDS: VALPROATE SODIUM 500 MG/5 ML VIAL IVPB SCH ×2 (10:22→22:31)
[2019-01-13] MEDS: THIAMINE HCL 200 MG/2 ML VIAL IVPB SCH ×2 (11:36→22:59)
--- NOTE | 2019-01-13 16:23 | PN ---
Physical Exam: SUBJECTIVE: Patient seen and examined OBJECTIVE: Vital Signs Period Temp Pulse Resp BP Sys/Varner Pulse Ox Last 24 Hr 97.3 F-98 F 61-90 16-18 103-131/57-75 92-98 GENERAL: The patient is nonverbal and slightly more responsive to commands but not with movement only with opening of eyes. HEAD: Normal with no signs of trauma. EYES: slight lateral gaze NECK: Trachea midline, full range of motion, supple. LUNGS: Breath sounds equal, clear to auscultation bilaterally, no wheezes, no crackles, no accessory muscle use. HEART: Regular rate and rhythm, S1, S2 without murmur, rub or gallop. ABDOMEN: Soft, nontender, nondistended, normoactive bowel sounds, no guarding, no rebound, no masses. EXTREMITIES: 2+ pulses, warm, well-perfused, no edema. PSYCH: Normal mood, normal affect. Laboratory Results - last 24 hr 01/13/19 01/13/19 05:05 05:05 WBC 21.8 H RBC 3.83 Hgb 9.1 L Hct 27.9 L MCV 72.9 L MCH 23.7 L D MCHC 32.5 RDW 26.7 H Plt Count 161 D MPV 9.2 D Absolute Neuts (auto) 17.1 H Neutrophils % 78.4 D Lymphocytes % 16.0 D Monocytes % 2.7 L Eosinophils % 1.9 D Basophils % 1.0 Nucleated RBC % 1 H Sodium 145 Potassium 3.5 Chloride 109 H Carbon Dioxide 30 Anion Gap 6 L BUN 20.9 H Creatinine 0.6 Est GFR (CKD-EPI)AfAm 106.28 Est GFR (CKD-EPI)NonAf 91.70 Random Glucose 86 Calcium 9.5 Phosphorus 1.8 L Magnesium 2.0 Active Medications Generic Name Dose Route Start Last Admin Trade Name Freq PRN Reason Stop Dose Admin Glycerin 1 each 01/10/19 18:05 Glycerin Suppository Adult - RC Q24H PRN CONSTIPATION Amino Acids 1,000 mls @ 42 mls/hr 01/06/19 11:45 01/13/19 04:31 Clinimix - IV 42 mls/hr Q23H KRYSTEN Administration Lacosamide 200 mg 01/07/19 22:00 01/13/19 09:30 Vimpat Injection - IVPB 200 mg BID KRYSTEN Administration Thiamine HCl 200 mg 01/08/19 10:00 01/13/19 11:36 Vitamin B1 Injection - IVPB 200 mg BID KRYSTEN Administration Valproate Sodium 500 mg 01/07/19 22:00 01/13/19 10:22 Depacon Injection - IVPB 500 mg BID KRYSTEN Administration ASSESSMENT/PLAN: Patient is a 73 year old female with a past medical history of MS, CVA (2013, with left sided residual deficits, LUE contracture), R nephrectomy, presented to the ED due to seizures. #Seizures -Continue Vimpat 200mg BID and Valproate 500mg BID -Brain MRI: No definite interval changes in comparison to previous MRIs. Moderate to marked periventricular and subcortical chronic microvascular ischemic changes. Stable meningiomas within the right posterior cranial fossa. - LP is being done. Trying to figure out if she has meningitis. #Sepsis 2/2 UTI, resolved -Zosyn and fluconazole discontinued -ID (Dr. Rosa) consulted appreciate recommendations. Spoke with him on phone, recommends to repeat B.C.'s and urine cultures and wait for LP results. - WBC elevation to 21.8 not on steroids. Patients temp has also gone down so will continue to monitor for hypothermia as she initially came in with. #Acute metabolic encephalopathy -Brain MRI done - no interval change -72 hour EEG - no reported events #Hypoglycemia -likely from poor oral intake -Resolved on IV Clinimix #FEN -IV D5/Ns @100cc/hr -repleted 30mm of NaPo4 since PO4 was 1.8. will continue to monitor. -Keep NPO for now and continue clinimix. #Prophylaxis -Heparin 5000u sq tid Dispo: discuss possibility for PEG tube Visit type - Emergency Visit Emergency Visit: No - New Patient This patient is new to me today: No - Critical Care Critical Care patient: No - Discharge Referral Referred to [facility] No ATTENDING PHYSICIAN STATEMENT I saw and evaluated the patient. I reviewed the resident's note and discussed the case with the resident. I agree with the resident's findings and plan as documented. SUBJECTIVE: OBJECTIVE: ASSESSMENT AND PLAN:
--- NOTE | 2019-01-13 17:18 | PN ---
Progress Note, Physician History of Present Illness: events note d Chart revciwed Alert Short attention spans No clinical sezite Spoiked WBC 21 S/p LP - Current Medication List Current Medications: Active Medications Glycerin (Glycerin Suppository Adult -) 1 each RC Q24H PRN PRN Reason: CONSTIPATION Heparin Sodium (Porcine) (Heparin -) 5,000 unit SQ TID [facility] Amino Acids (Clinimix -) 1,000 mls @ 42 mls/hr IV Q23H [facility] Last Admin: 01/13/19 04:31 Dose: 42 mls/hr Lacosamide (Vimpat Injection -) 200 mg IVPB BID [facility] Last Admin: 01/13/19 09:30 Dose: 200 mg Thiamine HCl (Vitamin B1 Injection -) 200 mg IVPB BID [facility] Last Admin: 01/13/19 11:36 Dose: 200 mg Valproate Sodium (Depacon Injection -) 500 mg IVPB BID [facility] Last Admin: 01/13/19 10:22 Dose: 500 mg - Objective Vital Signs: Vital Signs Temperature 95.8 F L 01/13/19 16:56 Pulse Rate 43 L 01/13/19 16:56 Respiratory Rate 20 01/13/19 16:56 Blood Pressure 141/71 01/13/19 16:56 O2 Sat by Pulse Oximetry (%) 98 01/13/19 09:00 Constitutional: Yes: Well Nourished Eyes: Yes: WNL Neurological: Yes: Alert, Oriented ...Motor Strength: RUE Labs: CBC, BMP 01/13/19 05:05 01/13/19 05:05 INR, PTT INR 0.97 (0.83-1.09) 01/02/19 03:40 Problem List - Problems (1) Seizure Assessment/Plan: Follow up Spinal tap ID consult Check for sores Continue domenico Vimpat and VPA combo Code(s): R56.9 - UNSPECIFIED CONVULSIONS
[2019-01-13 17:24] LABS: CSF APPEARANCE CLEAR; CSF COLOR COLORLESS; CSF WBC 1
[2019-01-13 17:56] LABS: BF GLUCOSE (CSF ONLY) 62 mg/dL (40-70)
[2019-01-13] MEDS ORDERED: PIPERACILLIN/TAZOBACTAM 3.375 GM VIAL IVPB ONE (17:57)
[2019-01-13] MEDS ORDERED: DEXTROSE 5%-WATER - 50 ML IVPB ONE (17:57)
[2019-01-13] MEDS: PIPERACILLIN/TAZOB 3.375 GM 3.375 GM in DEXTROSE 5%-WATER - 50 ML IVPB SCH (18:03)
[2019-01-13] MEDS ORDERED: PT OWN MED DRAWER 7, Y5N ONE ×2 (18:16→18:25)
--- NOTE | 2019-01-13 18:23 | PN ---
Teaching Attending Note Name of Resident: Prosper Hayes ATTENDING PHYSICIAN STATEMENT I saw and evaluated the patient. I reviewed the resident's note and discussed the case with the resident. I agree with the resident's findings and plan as documented. SUBJECTIVE: Patient has no change in mentation. low grade fever. OBJECTIVE: Vital Signs Temperature 95.8 F L 01/13/19 16:56 Pulse Rate 43 L 01/13/19 16:56 Respiratory Rate 20 01/13/19 16:56 Blood Pressure 141/71 01/13/19 16:56 O2 Sat by Pulse Oximetry (%) 98 01/13/19 09:00 GENERAL: The patient is awake, but non verbal, in no acute distress. HEAD: Normal with no signs of trauma. EYES: Left lateral gaze. NECK: supple. LUNGS: Breath sounds equal, clear to auscultation bilaterally, no wheezes, no crackles, no accessory muscle use. HEART: Regular rate and rhythm, S1, S2 without murmur, rub or gallop. ABDOMEN: Soft, nontender, nondistended, normoactive bowel sounds, no guarding, no rebound, no hepatosplenomegaly, no masses. EXTREMITIES: 2+ pulses, warm, well-perfused, no edema. NEUROLOGICAL: Cranial nerves II through XII grossly intact. non verbal. PSYCH: Non verbal , normal affect. SKIN: Warm, dry, normal turgor, no rashes or lesions noted CBCD WBC 21.8 K/mm3 (4.0-10.0) H 01/13/19 05:05 RBC 3.83 M/mm3 (3.60-5.2) 01/13/19 05:05 Hgb 9.1 GM/dL (10.7-15.3) L 01/13/19 05:05 Hct 27.9 % (32.4-45.2) L 01/13/19 05:05 MCV 72.9 fl (80-96) L 01/13/19 05:05 MCHC 32.5 g/dl (32.0-36.0) 01/13/19 05:05 RDW 26.7 % (11.6-15.6) H 01/13/19 05:05 Plt Count 161 K/MM3 (134-434) D 01/13/19 05:05 MPV 9.2 fl (7.5-11.1) D 01/13/19 05:05 CMP Sodium 145 mmol/L (136-145) 01/13/19 05:05 Potassium 3.5 mmol/L (3.5-5.1) 01/13/19 05:05 Chloride 109 mmol/L (98-107) H 01/13/19 05:05 Carbon Dioxide 30 mmol/L (21-32) 01/13/19 05:05 Anion Gap 6 MMOL/L (8-16) L 01/13/19 05:05 BUN 20.9 mg/dL (7-18) H 01/13/19 05:05 Creatinine 0.6 mg/dL (0.55-1.3) 01/13/19 05:05 Random Glucose 86 mg/dL (74-106) 01/13/19 05:05 Calcium 9.5 mg/dL (8.5-10.1) 01/13/19 05:05 Total Bilirubin 0.4 mg/dL (0.2-1) 01/11/19 05:55 AST 25 U/L (15-37) 01/11/19 05:55 ALT 16 U/L (13-61) 01/11/19 05:55 Alkaline Phosphatase 87 U/L (45-117) 01/11/19 05:55 Total Protein 6.7 g/dl (6.4-8.2) 01/11/19 05:55 Albumin 2.3 g/dl (3.4-5.0) L 01/11/19 05:55 CARDIAC ENZYMES Creatine Kinase 166 U/L (26-192) 01/02/19 03:40 Troponin I < 0.02 ng/ml (0.00-0.05) 01/02/19 03:40 Current Medications Generic Name Dose Route Start Last Admin Trade Name Freq PRN Reason Stop Dose Admin Glycerin 1 each 01/10/19 18:05 Glycerin Suppository Adult - RC Q24H PRN CONSTIPATION Heparin Sodium (Porcine) 5,000 unit 01/13/19 22:00 Heparin - SQ TID KRYSTEN Amino Acids 1,000 mls @ 42 mls/hr 01/06/19 11:45 01/13/19 04:31 Clinimix - IV 42 mls/hr Q23H KRYSTEN Administration Piperacillin Sod/Tazobactam 50 mls @ 100 mls/hr 01/13/19 18:00 01/13/19 18:03 Sod 3.375 gm/ Dextrose IVPB 100 mls/hr Q8H-IV KRYSTEN Administration Protocol Fluconazole 50 mls @ 50 mls/hr 01/13/19 18:00 Diflucan 100 Mg/Ns Premixed Ivpb - IVPB DAILY KRYSTEN Lacosamide 200 mg 01/07/19 22:00 01/13/19 09:30 Vimpat Injection - IVPB 200 mg BID KRYSTEN Administration Thiamine HCl 200 mg 01/08/19 10:00 01/13/19 11:36 Vitamin B1 Injection - IVPB 200 mg BID KRYSTEN Administration Valproate Sodium 500 mg 01/07/19 22:00 01/13/19 10:22 Depacon Injection - IVPB 500 mg BID KRYSTEN Administration Home Medications Medication Instructions Recorded levETIRAcetam [Keppra -] 250 mg PO BID 01/02/19 Microbiology 01/13/19 16:15 Cerebral Spinal Fluid - Lumbar Puncture Gram Stain - Preliminary 01/02/19 06:30 Urine - Urine - Catheterized Yeast/Fungus Identification - Final Magali Albicans 01/02/19 11:20 Blood - Peripheral Venous Blood Culture - Final NO GROWTH AFTER 5 DAYS INCUBATION 01/02/19 11:15 Blood - Peripheral Venous Blood Culture - Final NO GROWTH AFTER 5 DAYS INCUBATION 01/02/19 06:30 Urine - Urine - Catheterized Urine Culture - Final Yeast Like Organism MRI of the brain: no change from 05/06/2018 ASSESSMENT AND PLAN: Patient is a 73 y/o female with PMhx of MS, CVA s/p L sided weakness and contraction, R nephrectomy, PNA, constipation , Seizure disorder 05/12, septic shock form UTI 11/10, who presented from home with seizure activity. # Acute Leukocytosis with hypotermia ;sepsis; unknown source at this time: on Zosyn and fluconazole restarted as per ID since urine positive for Yeast on2018 will reculture the patient. s/p LP, no cells in culture in CSF culture. # s/p acute Seizure activity: On keppra and Vimpat continue, Dr. Hough neuro on the case, s/p EEG : as per neuro is negative, MRI result reviewed , no seizure activity so far per Dr. Hough. # Encephalopathy: possible due to seizure activity; the cause is unknown so far , no acute infarct or worsening of MS plaques on MRI.s/p Video EEG neuro on the case if no change in mentation will discuss with Neuro possible the need for LP. # Nutrition : on Clinimix day 5 . monitor electrolytes # Hypoglycemia: resolved, on Clinimix # Severe protein calorie malnutrition. # Abnl TFTs: repeat when in a steady state as out pt Code status, full code. will need to discuss with the patient's family G-tube, since n improvement,
[2019-01-13] MEDS: FLUCONAZOLE 100 MG/NS 50 ML IVPB SCH (18:38)
[2019-01-13] MEDS ORDERED: LACTATED RINGERS SOLUTION 1,000 ML/1,000 ML INFUS.BAG IV SCH (19:15)
[2019-01-13] MEDS ORDERED: VANCOMYCIN 750 MG in DEXTROSE 5%-WATER - 250 ML IVPB ONE (20:00)
[2019-01-14 01:07] LABS: EOS % 0.9 % (0-4.5); HEMATOCRIT 31.3 % (32.4-45.2); HEMOGLOBIN 10.2 GM/dL (10.7-15.3); LYMPH % 29.1 % (8-40); MCH 27.2 pg (25.7-33.7); MCHC 32.4 g/dl (32.0-36.0); MEAN PLT VOLUME 8.4 fl (7.5-11.1); MONO % 6.2 % (3.8-10.2); NEUT % 62.8 % (42.8-82.8); PLATELET COUNT 304 K/MM3 (134-434); RBC 3.73 M/mm3 (3.60-5.2); RDW 14.8 % (11.6-15.6); WHITE BLOOD COUNT 4.4 K/mm3 (4.0-10.0)
[2019-01-14 01:37] LABS: MAGNESIUM 1.7 mg/dL (1.8-2.4); PHOSPHOROUS 4.7 mg/dL (2.5-4.9)
[2019-01-14] MEDS ORDERED: PIPERACILLIN/TAZOBACTAM 3.375 GM VIAL IVPB ONE ×3 (01:39→17:58)
[2019-01-14] MEDS ORDERED: DEXTROSE 5%-WATER - 50 ML IVPB ONE ×3 (01:39→17:58)
[2019-01-14] MEDS ORDERED: MAGNESIUM SULF 50% (8.12 MEQ/2 ML-1 GM VIAL) IVPB ONE (01:55)
[2019-01-14] MEDS: PIPERACILLIN/TAZOB 3.375 GM 3.375 GM in DEXTROSE 5%-WATER - 50 ML IVPB SCH ×3 (02:18→18:18)
[2019-01-14] MEDS: AMINO ACIDS 4.25%/D5W 1,000 ML IV SCH (05:16)
[2019-01-14] MEDS: HEPARIN NA (PORCINE) 5,000 UNITS/ML 1ML VIAL SQ SCH ×3 (05:16→22:08)
[2019-01-14 05:48] LABS: ANISOCYTOSIS 1+; MACROCYTOSIS 0; PLATELET ESTIMATE NORMAL
[2019-01-14 06:14] LABS: BASO % 0.3 % (0-2.0); EOS % 0.7 % (0-4.5); HEMATOCRIT 26.5 % (32.4-45.2); HEMOGLOBIN 8.9 GM/dL (10.7-15.3); LYMPH % 17.9 % (8-40); MCHC 33.6 g/dl (32.0-36.0); MEAN CELL VOLUME 83.5 fl (80-96); MEAN PLT VOLUME 7.9 fl (7.5-11.1); MONO % 7.2 % (3.8-10.2); NEUT % 73.9 % (42.8-82.8); PLATELET COUNT 300 K/MM3 (134-434); RBC 3.18 M/mm3 (3.60-5.2); RDW 14.9 % (11.6-15.6); WHITE BLOOD COUNT 5.7 K/mm3 (4.0-10.0)
[2019-01-14 06:39] LABS: ALBUMIN 2.1 g/dl (3.4-5.0); BILIRUBIN,TOTAL 0.2 mg/dL (0.2-1); BLOOD UREA NITROGEN 16.2 mg/dL (7-18); CALCIUM 8.7 mg/dL (8.5-10.1); CREATININE 0.7 mg/dL (0.55-1.3); TOT PROT 6.2 g/dl (6.4-8.2)
[2019-01-14] MEDS: KCL 10 MEQ IVPB 10 MEQ/100 ML INFUS.BAG IVPB SCH ×3 (07:55→10:58)
[2019-01-14 09:18] LABS: ANISOCYTOSIS 1+
[2019-01-14 09:22] LABS: OVALOCYTE 1+; PLATELET ESTIMATE ADEQUATE; TEAR DROP CELLS 1+
[2019-01-14] MEDS: FLUCONAZOLE 100 MG/NS 50 ML IVPB SCH (09:44)
[2019-01-14] MEDS: Lacosamide 200 MG/20 ML VIAL IVPB SCH ×2 (10:38→22:08)
[2019-01-14] MEDS: VALPROATE SODIUM 500 MG/5 ML VIAL IVPB SCH ×2 (11:50→22:36)
[2019-01-14] MEDS: THIAMINE HCL 200 MG/2 ML VIAL IVPB SCH ×2 (12:29→22:36)
--- NOTE | 2019-01-14 13:45 | PN ---
Physical Exam: SUBJECTIVE: Patient seen and examined at the bedside. Slight improvement in mental status with opening eyes on command but no other improvements. AO X 0. OBJECTIVE: Vital Signs Period Temp Pulse Resp BP Sys/Varner Pulse Ox Last 24 Hr 94.8 F-97.8 F 42-87 16-20 116-141/63-74 94-97 GENERAL: The patient is AOX0 only responsive to opening her eyes. HEAD: Normal with no signs of trauma. NECK:supple. LUNGS: Breath sounds decreased, clear to auscultation bilaterally, no wheezes, no crackles, no accessory muscle use. HEART: Regular rate and rhythm, S1, S2 without murmur, rub or gallop. ABDOMEN: Soft, nontender, nondistended, normoactive bowel sounds, no guarding, no rebound, no hepatosplenomegaly, no masses. EXTREMITIES: well-perfused, no edema. NEUROLOGICAL:brain stem reflexes not intact, no flinch or eye closure reflex on exam. Laboratory Results - last 24 hr 01/13/19 01/13/19 01/14/19 05:05 16:15 00:00 WBC RBC Hgb Hct MCV MCH MCHC RDW Plt Count MPV Absolute Neuts (auto) Total Counted 100 Neutrophils % Neutrophils % (Manual) 51.0 Band Neutrophils % 9.0 Lymphocytes % Lymphocytes % (Manual) 20.0 Monocytes % Monocytes % (Manual) 3 L Eosinophils % Eosinophils % (Manual) 1.0 Basophils % Basophils % (Manual) Myelocytes % (Man) 9 H Promyelocytes % (Man) Blast Cells % (Manual) Nucleated RBC % Metamyelocytes 3 H Hypochromia Platelet Estimate Adequate Polychromasia Poikilocytosis Basophilic Stippling 1+ Anisocytosis 1+ Microcytosis 1+ Macrocytosis Tear Drop Cells 1+ Ovalocytes 1+ Schistocytes 1+ Sodium Potassium Chloride Carbon Dioxide Anion Gap BUN Creatinine Est GFR (CKD-EPI)AfAm Est GFR (CKD-EPI)NonAf Random Glucose Calcium Phosphorus 4.7 Magnesium 1.7 L Total Bilirubin AST ALT Alkaline Phosphatase Total Protein Albumin TSH 1.33 Free T4 0.84 CSF Appearance Clear CSF Color Colorless CSF WBC 1 CSF RBC 0 CSF Neutrophils No Result Required. CSF Lymphocytes No Result Required. CSF Eosinophils No Result Required. CSF Basophils No Result Required. CSF Macrophages No Result Required. CSF Plasma Cells No Result Required. CSF Diff Comment No Result Required. CSF Comment No Result Required. CSF Glucose 62 CSF Total Protein 54 H 01/14/19 01/14/19 01/14/19 00:00 05:00 05:00 WBC 4.4 5.7 RBC 3.73 3.18 L Hgb 10.2 L 8.9 L Hct 31.3 L 26.5 L D MCV 84.0 D 83.5 MCH 27.2 D 28.0 MCHC 32.4 33.6 RDW 14.8 D 14.9 Plt Count 304 D 300 MPV 8.4 7.9 Absolute Neuts (auto) 2.8 4.2 Total Counted Neutrophils % 62.8 73.9 Neutrophils % (Manual) 62.8 Band Neutrophils % 1.8 Lymphocytes % 29.1 D 17.9 D Lymphocytes % (Manual) 34.5 D Monocytes % 6.2 D 7.2 Monocytes % (Manual) 1 L Eosinophils % 0.9 0.7 Eosinophils % (Manual) 0.0 D Basophils % 1.0 0.3 Basophils % (Manual) 0.0 Myelocytes % (Man) 0 D Promyelocytes % (Man) 0 Blast Cells % (Manual) 0 Nucleated RBC % 0 0 Metamyelocytes 0 D Hypochromia 0 Platelet Estimate Normal Polychromasia 0 Poikilocytosis 0 Basophilic Stippling Anisocytosis 1+ Microcytosis 1+ Macrocytosis 0 Tear Drop Cells Ovalocytes Schistocytes Sodium 145 Potassium 3.0 L Chloride 108 H Carbon Dioxide 32 Anion Gap 5 L BUN 16.2 Creatinine 0.7 Est GFR (CKD-EPI)AfAm 101.03 Est GFR (CKD-EPI)NonAf 87.17 Random Glucose 97 Calcium 8.7 Phosphorus Magnesium Total Bilirubin 0.2 AST 12 L ALT 10 L Alkaline Phosphatase 71 Total Protein 6.2 L Albumin 2.1 L TSH Free T4 CSF Appearance CSF Color CSF WBC CSF RBC CSF Neutrophils CSF Lymphocytes CSF Eosinophils CSF Basophils CSF Macrophages CSF Plasma Cells CSF Diff Comment CSF Comment CSF Glucose CSF Total Protein Active Medications Generic Name Dose Route Start Last Admin Trade Name Freq PRN Reason Stop Dose Admin Glycerin 1 each 01/10/19 18:05 Glycerin Suppository Adult - RC Q24H PRN CONSTIPATION Heparin Sodium (Porcine) 5,000 unit 01/13/19 22:00 01/14/19 05:16 Heparin - SQ 5,000 unit TID KRYSTEN Administration Amino Acids 1,000 mls @ 42 mls/hr 01/06/19 11:45 01/14/19 05:16 Clinimix - IV 42 mls/hr Q23H KRYSTEN Administration Piperacillin Sod/Tazobactam 50 mls @ 100 mls/hr 01/13/19 18:00 01/14/19 11:22 Sod 3.375 gm/ Dextrose IVPB 100 mls/hr Q8H-IV KRYSTEN Administration Protocol Fluconazole 50 mls @ 50 mls/hr 01/13/19 18:00 01/14/19 09:44 Diflucan 100 Mg/Ns Premixed Ivpb - IVPB 50 mls/hr DAILY KRYSTEN Administration Vancomycin HCl 750 mg/ 250 mls @ 200 mls/hr 01/14/19 20:00 Dextrose IVPB DAILY@2000 KRYSTEN Protocol Lacosamide 200 mg 01/07/19 22:00 01/14/19 10:38 Vimpat Injection - IVPB 200 mg BID KRYSTEN Administration Thiamine HCl 200 mg 01/08/19 10:00 01/14/19 12:29 Vitamin B1 Injection - IVPB 200 mg BID KRYSTEN Administration Valproate Sodium 500 mg 01/07/19 22:00 01/14/19 11:50 Depacon Injection - IVPB 500 mg BID KRYSTEN Administration ASSESSMENT/PLAN: Patient is a 73 year old female with a past medical history of MS, CVA (2013, with left sided residual deficits, LUE contracture), R nephrectomy, presented to the ED due to seizures. Line: Rt sided cephalic vein central line in place (01/13 placement) #Seizures -Continue Vimpat 200mg BID and Valproate 500mg BID -Brain MRI: No definite interval changes in comparison to previous MRIs. Moderate to marked periventricular and subcortical chronic microvascular ischemic changes. Stable meningiomas within the right posterior cranial fossa. #Sepsis 2/2 UTI, resolved -Zosyn and fluconazole has been restarted one dose of vano was given 01/13, day 2 for zosyn and fluconazole. -ID (Dr. Rosa) consulted appreciate recommendations. Spoke with him on phone, recommends to repeat B.C.'s and urine cultures and wait for LP results. -WBC elevation to 21.8 not on steroids. Patients temp has also gone down so will continue to monitor for hypothermia as she initially came in with. -Hypothermia has resolved as has the leukocytosis to 97.8 and 5.7 respectively. #Acute metabolic encephalopathy -Brain MRI done - no interval change -72 hour EEG - no reported events -LP done elevated protein normal glucose and wbc count all other csf panel is pending. #Hypoglycemia -likely from poor oral intake -Resolved on IV Clinimix #FEN -IV D5/Ns @100cc/hr, 1 dose of LR was given for the bradycardia but that has been d/c and she has normal pulse. -repleted 30mm of NaPo4 since PO4 was 1.8 01/13. Will continue to monitor all lytes and this is probably due to clinimix. -Keep NPO for now and continue clinimix. #Prophylaxis -Heparin 5000u sq tid Dispo: IR will place PEG tube on sunday. Will hold heparin that AM. Spoke to patients daughter today regarding this. They already have given consent and have agreed to go ahead w the PEG. Visit type - Emergency Visit Emergency Visit: No - New Patient This patient is new to me today: No - Critical Care Critical Care patient: No - Discharge Referral Referred to [facility] Med P.C.: No ATTENDING PHYSICIAN STATEMENT I saw and evaluated the patient. I reviewed the resident's note and discussed the case with the resident. I agree with the resident's findings and plan as documented. SUBJECTIVE: OBJECTIVE: ASSESSMENT AND PLAN:
--- NOTE | 2019-01-14 16:34 | PN ---
Teaching Attending Note Name of Resident: Prosper Hayes ATTENDING PHYSICIAN STATEMENT I saw and evaluated the patient. I reviewed the resident's note and discussed the case with the resident. I agree with the resident's findings and plan as documented. SUBJECTIVE: Patient open her eyes when called her name, does not follow any commands. OBJECTIVE: Vital Signs Temperature 98 F 01/14/19 14:24 Pulse Rate 56 L 01/14/19 14:24 Respiratory Rate 16 01/14/19 14:24 Blood Pressure 131/73 01/14/19 14:24 O2 Sat by Pulse Oximetry (%) 97 01/14/19 10:00 GENERAL: The patient opens her eyes when called her name, but non verbal. HEAD: Normal with no signs of trauma. EYES: opnes when called her name . NECK: supple. Patient has EJ placed on 2018 LUNGS: Breath sounds equal, clear to auscultation bilaterally, no wheezes, no crackles, no accessory muscle use. HEART: Regular rate and rhythm, S1, S2 without murmur, rub or gallop. ABDOMEN: Soft, nontender, nondistended, normoactive bowel sounds, no guarding, no rebound, no hepatosplenomegaly, no masses. EXTREMITIES: 2+ pulses, warm, well-perfused, no edema. NEUROLOGICAL: non verbal. PSYCH: Non verbal , normal affect. SKIN: Warm, dry, normal turgor, no rashes noted CBCD WBC 5.7 K/mm3 (4.0-10.0) 01/14/19 05:00 RBC 3.18 M/mm3 (3.60-5.2) L 01/14/19 05:00 Hgb 8.9 GM/dL (10.7-15.3) L 01/14/19 05:00 Hct 26.5 % (32.4-45.2) L D 01/14/19 05:00 MCV 83.5 fl (80-96) 01/14/19 05:00 MCHC 33.6 g/dl (32.0-36.0) 01/14/19 05:00 RDW 14.9 % (11.6-15.6) 01/14/19 05:00 Plt Count 300 K/MM3 (134-434) 01/14/19 05:00 MPV 7.9 fl (7.5-11.1) 01/14/19 05:00 CMP Sodium 145 mmol/L (136-145) 01/14/19 05:00 Potassium 3.0 mmol/L (3.5-5.1) L 01/14/19 05:00 Chloride 108 mmol/L (98-107) H 01/14/19 05:00 Carbon Dioxide 32 mmol/L (21-32) 01/14/19 05:00 Anion Gap 5 MMOL/L (8-16) L 01/14/19 05:00 BUN 16.2 mg/dL (7-18) 01/14/19 05:00 Creatinine 0.7 mg/dL (0.55-1.3) 01/14/19 05:00 Random Glucose 97 mg/dL (74-106) 01/14/19 05:00 Calcium 8.7 mg/dL (8.5-10.1) 01/14/19 05:00 Total Bilirubin 0.2 mg/dL (0.2-1) 01/14/19 05:00 AST 12 U/L (15-37) L 01/14/19 05:00 ALT 10 U/L (13-61) L 01/14/19 05:00 Alkaline Phosphatase 71 U/L (45-117) 01/14/19 05:00 Total Protein 6.2 g/dl (6.4-8.2) L 01/14/19 05:00 Albumin 2.1 g/dl (3.4-5.0) L 01/14/19 05:00 CARDIAC ENZYMES Creatine Kinase 166 U/L (26-192) 01/02/19 03:40 Troponin I < 0.02 ng/ml (0.00-0.05) 01/02/19 03:40 Current Medications Generic Name Dose Route Start Last Admin Trade Name Freq PRN Reason Stop Dose Admin Glycerin 1 each 01/10/19 18:05 Glycerin Suppository Adult - RC Q24H PRN CONSTIPATION Heparin Sodium (Porcine) 5,000 unit 01/13/19 22:00 01/14/19 14:38 Heparin - SQ 5,000 unit TID KRYSTEN Administration Amino Acids 1,000 mls @ 42 mls/hr 01/06/19 11:45 01/14/19 05:16 Clinimix - IV 42 mls/hr Q23H KRYSTEN Administration Piperacillin Sod/Tazobactam 50 mls @ 100 mls/hr 01/13/19 18:00 01/14/19 11:22 Sod 3.375 gm/ Dextrose IVPB 100 mls/hr Q8H-IV KRYSTEN Administration Protocol Fluconazole 50 mls @ 50 mls/hr 01/13/19 18:00 01/14/19 09:44 Diflucan 100 Mg/Ns Premixed Ivpb - IVPB 50 mls/hr DAILY KRYSTEN Administration Lacosamide 200 mg 01/07/19 22:00 01/14/19 10:38 Vimpat Injection - IVPB 200 mg BID KRYSTEN Administration Thiamine HCl 200 mg 01/08/19 10:00 01/14/19 12:29 Vitamin B1 Injection - IVPB 200 mg BID KRYSTEN Administration Valproate Sodium 500 mg 01/07/19 22:00 01/14/19 11:50 Depacon Injection - IVPB 500 mg BID KRYSTEN Administration Home Medications Medication Instructions Recorded levETIRAcetam [Keppra -] 250 mg PO BID 01/02/19 Microbiology 01/13/19 13:25 Blood - Peripheral Venous Blood Culture - Preliminary NO GROWTH OBTAINED AFTER 24 HOURS, INCUBATION TO CONTINUE FOR 4 DAYS. 01/13/19 13:30 Blood - Peripheral Venous Blood Culture - Preliminary NO GROWTH OBTAINED AFTER 24 HOURS, INCUBATION TO CONTINUE FOR 4 DAYS. 01/13/19 13:50 Urine - Urine - Catheterized Urine Culture - Final NO GROWTH OBTAINED 01/13/19 16:15 Cerebral Spinal Fluid - Lumbar Puncture Gram Stain - Final 01/02/19 06:30 Urine - Urine - Catheterized Yeast/Fungus Identification - Final Magali Albicans 01/02/19 11:20 Blood - Peripheral Venous Blood Culture - Final NO GROWTH AFTER 5 DAYS INCUBATION 01/02/19 11:15 Blood - Peripheral Venous Blood Culture - Final NO GROWTH AFTER 5 DAYS INCUBATION 01/02/19 06:30 Urine - Urine - Catheterized Urine Culture - Final Yeast Like Organism MRI of the brain: no change from 05/06/2018 ASSESSMENT AND PLAN: Patient is a 73 y/o female with PMhx of MS, CVA s/p L sided weakness and contraction, R nephrectomy, PNA, constipation , Seizure disorder 05/12, septic shock form UTI 11/10, who presented from home with seizure activity. # Acute Leukocytosis with hypotermia ;sepsis; unknown source at this time: s/p LP so far the CSF reported NO cells, follow the rest of the cx result, as per ID to continue Zosyn and fluconazole day #2 restarted as per ID since urine positive for Yeast on 01/02/2019. ALso Oligobands are pending . # s/p acute Seizure activity: On keppra and Vimpat continue, Dr. Hough neuro on the case, s/p EEG : as per neuro is negative, MRI result reviewed , no seizure activity so far per Dr. Hough. # Encephalopathy: possible due to seizure activity; the cause is unknown so far , no acute infarct or worsening of MS plaques on MRI. s/p Video EEG neuro on the case if no change in mentation will discuss with Neuro possible the need for LP. # Nutrition : on Clinimix day 6 . monitor electrolytes , patient's family is agreeable for G-tube, once medically stale then can hav Gtube placed. # Hypoglycemia: resolved on Clinimix # Severe protein calorie malnutrition. continue till patient is medically stable # Abnl TFTs: repeat when in a steady state as out pt Code status, full code. Patient's family agreeable for G-tube.
--- NOTE | 2019-01-14 19:55 | PN ---
Progress Note, Physician History of Present Illness: events noted Chart reviewed Arousable No real response to pain or verbal CSF noted NO INFECTION Reviewed domenico two MR again No clinical seizure - Current Medication List Current Medications: Active Medications Glycerin (Glycerin Suppository Adult -) 1 each RC Q24H PRN PRN Reason: CONSTIPATION Heparin Sodium (Porcine) (Heparin -) 5,000 unit SQ TID [facility] Last Admin: 01/14/19 14:38 Dose: 5,000 unit Amino Acids (Clinimix -) 1,000 mls @ 42 mls/hr IV Q23H KRYSTEN Last Admin: 01/14/19 05:16 Dose: 42 mls/hr Piperacillin Sod/Tazobactam (Sod 3.375 gm/ Dextrose) 50 mls @ 100 mls/hr IVPB Q8H-IV KRYSTEN; Protocol Last Admin: 01/14/19 18:18 Dose: 100 mls/hr Fluconazole (Diflucan 100 Mg/Ns Premixed Ivpb -) 50 mls @ 50 mls/hr IVPB DAILY [facility] Last Admin: 01/14/19 09:44 Dose: 50 mls/hr Lacosamide (Vimpat Injection -) 200 mg IVPB BID [facility] Last Admin: 01/14/19 10:38 Dose: 200 mg Thiamine HCl (Vitamin B1 Injection -) 200 mg IVPB BID [facility] Last Admin: 01/14/19 12:29 Dose: 200 mg Valproate Sodium (Depacon Injection -) 500 mg IVPB BID [facility] Last Admin: 01/14/19 11:50 Dose: 500 mg - Objective Vital Signs: Vital Signs Temperature 98 F 01/14/19 14:24 Pulse Rate 56 L 01/14/19 14:24 Respiratory Rate 16 01/14/19 14:24 Blood Pressure 131/73 01/14/19 14:24 O2 Sat by Pulse Oximetry (%) 97 01/14/19 10:00 Constitutional: Yes: Well Nourished Eyes: Yes: WNL Neurological: Yes: Other (arousable dorent follow any commands LUE spsatic with bilaterl up planters) Labs: CBC, BMP 01/14/19 05:00 01/14/19 05:00 INR, PTT INR 0.97 (0.83-1.09) 01/02/19 03:40 Problem List - Problems (1) Seizure Assessment/Plan: Ch Veg Status Seziure MS CVA I think patient reached [facility] [place] Continue Depakote and Vimpat seizure precaution Case discussed with daughter Abby Code(s): R56.9 - UNSPECIFIED CONVULSIONS
[2019-01-14] MEDS ORDERED: VANCOMYCIN 750 MG in DEXTROSE 5%-WATER - 250 ML IVPB SCH (20:00)
[2019-01-14] MEDS ORDERED: VANCOMYCIN 750 MG in DEXTROSE 5%-WATER - 250 ML IVPB ONE (20:00)
[2019-01-15] MEDS ORDERED: DEXTROSE 5%-WATER - 50 ML IVPB ONE ×3 (00:56→17:01)
[2019-01-15] MEDS ORDERED: PIPERACILLIN/TAZOBACTAM 3.375 GM VIAL IVPB ONE ×3 (00:56→17:00)
[2019-01-15] MEDS: PIPERACILLIN/TAZOB 3.375 GM 3.375 GM in DEXTROSE 5%-WATER - 50 ML IVPB SCH ×3 (01:05→17:10)
[2019-01-15] MEDS: AMINO ACIDS 4.25%/D5W 1,000 ML IV SCH (02:07)
[2019-01-15] MEDS: HEPARIN NA (PORCINE) 5,000 UNITS/ML 1ML VIAL SQ SCH ×3 (05:14→22:40)
[2019-01-15 09:04] LABS: BASO % 0.3 % (0-2.0); EOS % 0.8 % (0-4.5); HEMATOCRIT 27.5 % (32.4-45.2); LYMPH % 25.2 % (8-40); MCH 27.7 pg (25.7-33.7); MCHC 32.7 g/dl (32.0-36.0); MEAN CELL VOLUME 84.9 fl (80-96); MEAN PLT VOLUME 7.8 fl (7.5-11.1); MONO % 10.3 % (3.8-10.2); NEUT % 63.4 % (42.8-82.8); PLATELET COUNT 244 K/MM3 (134-434); RBC 3.24 M/mm3 (3.60-5.2); RDW 15.3 % (11.6-15.6); WHITE BLOOD COUNT 4.5 K/mm3 (4.0-10.0)
[2019-01-15] MEDS: THIAMINE HCL 200 MG/2 ML VIAL IVPB SCH ×2 (09:16→21:28)
[2019-01-15] MEDS: VALPROATE SODIUM 500 MG/5 ML VIAL IVPB SCH ×2 (09:16→22:40)
[2019-01-15] MEDS: FLUCONAZOLE 100 MG/NS 50 ML IVPB SCH (09:16)
[2019-01-15] MEDS: Lacosamide 200 MG/20 ML VIAL IVPB SCH ×2 (09:16→21:32)
[2019-01-15 10:06] LABS: ALK PHOS 65 U/L (45-117); ANION GAP 9 MMOL/L (8-16); BILIRUBIN,TOTAL < 0.1 mg/dL (0.2-1); CALCIUM 8.8 mg/dL (8.5-10.1); CHLORIDE 110 mmol/L (98-107); CO2 26 mmol/L (21-32); CREATININE 0.7 mg/dL (0.55-1.3); GLUCOSE,RANDOM 84 mg/dL (74-106); POTASSIUM 3.5 mmol/L (3.5-5.1); SGOT/AST 16 U/L (15-37); SGPT/ALT 8 U/L (13-61); SODIUM 145 mmol/L (136-145); TOT PROT 5.8 g/dl (6.4-8.2)
[2019-01-15] MEDS: NYSTATIN 500,000 UNITS/5 ML SUSPENSION PO SCH ×2 (11:56→17:10)
[2019-01-15 12:46] LABS: ANISOCYTOSIS 0; HELMET CELLS 0; HOWELL-JOLLY BODIES 0; MACROCYTOSIS 0; OVALOCYTE 0; PLATELET ESTIMATE NORMAL; ROULEAU 0; SICKELED CELLS 0; TARGET CELLS 0; TEAR DROP CELLS 0; TOXIC GRANULATION 0
--- NOTE | 2019-01-15 14:49 | PN ---
Physical Exam: SUBJECTIVE: Patient seen and examined at bedside. No acute tele events overnight. Pt being trasnferred to [facility]. OBJECTIVE: Vital Signs Period Temp Pulse Resp BP Sys/Varner Pulse Ox Last 24 Hr 96.7 F-98.1 F 55-77 16-20 114-147/56-78 100 GENERAL: The patient is nonverbal only responsive to eye opening. EYES: left lateral gaze, sclera anicteric, No ptosis. NECK: Trachea midline, full range of motion, supple. LUNGS: Breath sounds equal, clear to auscultation bilaterally, no wheezes, no crackles, no accessory muscle use. HEART: Regular rate and rhythm, S1, S2 without murmur, rub or gallop. ABDOMEN: Soft, nontender, nondistended, normoactive bowel sounds, no guarding, no rebound, no hepatosplenomegaly, no masses. EXTREMITIES: 2+ pulses, warm, well-perfused, no edema. NEUROLOGICAL: Cranial nerves II through XII grossly intact. Normal speech, gait not observed. PSYCH: Normal mood, normal affect. SKIN: Warm, dry, normal turgor, no rashes or lesions noted Laboratory Results - last 24 hr 01/14/19 01/15/19 01/15/19 00:00 08:05 08:05 WBC 4.5 RBC 3.24 L Hgb 9.0 L Hct 27.5 L MCV 84.9 MCH 27.7 MCHC 32.7 RDW 15.3 Plt Count 244 MPV 7.8 Absolute Neuts (auto) 2.8 Neutrophils % 63.4 Neutrophils % (Manual) 57.8 Band Neutrophils % 1.0 Lymphocytes % 25.2 D Lymphocytes % (Manual) 32.0 Monocytes % 10.3 H Monocytes % (Manual) 4 D Eosinophils % 0.8 Eosinophils % (Manual) 3.1 D Basophils % 0.3 Basophils % (Manual) 1.0 D Myelocytes % (Man) 1 D Promyelocytes % (Man) 0 Blast Cells % (Manual) 0 Nucleated RBC % 0 Metamyelocytes 0 Hypochromia 0 Toxic Granulation 0 Dohle Bodies 0 Platelet Estimate Normal Polychromasia 0 Poikilocytosis 0 Basophilic Stippling 0 Anisocytosis 0 Microcytosis 0 Macrocytosis 0 Spherocytes 0 Sickle Cells 0 Target Cells 0 Tear Drop Cells 0 Ovalocytes 0 Stomatocytes 0 Helmet Cells 0 Sexton-Callaghan Bodies 0 [place] Rings 0 Leeanne Cells 0 Acanthocytes (Spur) 0 Rouleaux 0 Fragmented RBCs 0 Schistocytes 0 Sodium 145 Potassium 3.5 Chloride 110 H Carbon Dioxide 26 Anion Gap 9 BUN 19.0 H Creatinine 0.7 Est GFR (CKD-EPI)AfAm 101.03 Est GFR (CKD-EPI)NonAf 87.17 Random Glucose 84 Calcium 8.8 Total Bilirubin < 0.1 L AST 16 ALT 8 L Alkaline Phosphatase 65 Total Protein 5.8 L Albumin 2.0 L Free T3 2.0 Active Medications Generic Name Dose Route Start Last Admin Trade Name Freq PRN Reason Stop Dose Admin Glycerin 1 each 01/10/19 18:05 Glycerin Suppository Adult - RC Q24H PRN CONSTIPATION Heparin Sodium (Porcine) 5,000 unit 01/13/19 22:00 01/15/19 13:55 Heparin - SQ 5,000 unit TID KRYSTEN Administration Amino Acids 1,000 mls @ 42 mls/hr 01/06/19 11:45 01/15/19 02:07 Clinimix - IV Not Given Q23H KRYSTEN Piperacillin Sod/Tazobactam 50 mls @ 100 mls/hr 01/13/19 18:00 01/15/19 09:16 Sod 3.375 gm/ Dextrose IVPB 100 mls/hr Q8H-IV KRYSTEN Administration Protocol Fluconazole 50 mls @ 50 mls/hr 01/13/19 18:00 01/15/19 09:16 Diflucan 100 Mg/Ns Premixed Ivpb - IVPB 50 mls/hr DAILY KRYSTEN Administration Lacosamide 200 mg 01/07/19 22:00 01/15/19 09:16 Vimpat Injection - IVPB 200 mg BID KRYSTEN Administration Nystatin 500,000 units 01/15/19 12:00 01/15/19 11:56 Nystatin Oral Suspension - PO 500,000 units Q6HPO KRYSTEN Administration Thiamine HCl 200 mg 01/08/19 10:00 01/15/19 09:16 Vitamin B1 Injection - IVPB 200 mg BID KRYSTEN Administration Valproate Sodium 500 mg 01/07/19 22:00 01/15/19 09:16 Depacon Injection - IVPB 500 mg BID KRYSTEN Administration ASSESSMENT/PLAN: Patient is a 73 year old female with a past medical history of MS, CVA (2013, with left sided residual deficits, LUE contracture), R nephrectomy, presented to the ED due to seizures. Line: Rt sided cephalic vein central line in place (01/13 placement) #Seizures -Continue Vimpat 200mg BID and Valproate 500mg BID -Brain MRI: No definite interval changes in comparison to previous MRIs. Moderate to marked periventricular and subcortical chronic microvascular ischemic changes. Stable meningiomas within the right posterior cranial fossa. #Sepsis 2/2 UTI, resolved -Zosyn and fluconazole has been restarted one dose of vano was given 01/13, day 2 for zosyn and fluconazole. -ID (Dr. Rosa) spoke to Dr Gallegos and she said just continue Dr Rosa's plan until he comes to see the patient tomorrow. -WBC elevation to 21.8 has returned to normal. -Hypothermia resolved, if hypothermic barehuggers will be placed. #Acute metabolic encephalopathy -Brain MRI done - no interval change -72 hour EEG - no reported events -LP done elevated protein normal glucose and wbc count all other csf panel is pending. #Hypoglycemia -likely from poor oral intake -Resolved on IV Clinimix #FEN -IV D5/Ns @100cc/hr, 1 dose of LR was given for the bradycardia but that has been d/c and she has normal pulse. -repleted 30mm of NaPo4 since PO4 was 1.8 01/13. Will continue to monitor all lytes and this is probably due to clinimix. -Keep NPO for now and continue clinimix. #Prophylaxis -Heparin 5000u sq tid Dispo: IR will place PEG tube on sunday. Will hold heparin that AM. Will try to expedite this for tm. transferred off tele to med surg. Visit type - Emergency Visit Emergency Visit: No - New Patient This patient is new to me today: No - Critical Care Critical Care patient: No - Discharge Referral Referred to [facility] Med P.C.: No ATTENDING PHYSICIAN STATEMENT I saw and evaluated the patient. I reviewed the resident's note and discussed the case with the resident. I agree with the resident's findings and plan as documented. SUBJECTIVE: OBJECTIVE: ASSESSMENT AND PLAN:
--- NOTE | 2019-01-15 18:29 | PN ---
Teaching Attending Note Name of Resident: Lu Gurrola ATTENDING PHYSICIAN STATEMENT I saw and evaluated the patient. I reviewed the resident's note and discussed the case with the resident. I agree with the resident's findings and plan as documented. SUBJECTIVE: no events over night. Not able to obtain hx form patient OBJECTIVE: opens eyes to name, but does not track or follow commands CV: RRR, no MRG Lungs: CTAb , decreased breath sounds at bases Abd: soft, nl BD, NT Ext: LUE contraction at level of elbow, wrist and hand. no edema on LE contraction at level of knees muscle atrophy. skin; stage 2 ulcer just above the buttock cleft about 2 cm in length ASSESSMENT AND PLAN: 73 y/o lady with h/o MS, CVA s/p L sided weakness and contraction, R nephrectomy , PNA, constipation , Seizure disorder 05/12, septic shock form UTI 11/10, who presented from home with seizure activity. 1- Seizure disorder 2- Encephalopathy 3- sepsis , resolved 4- fungal UTI 5- Abnormal TFTs. 6- severe protein calorie malnutrition plan : - cont depakote and vimpat - cont fluconazole and zosyn for now, pending ID eval in am . ID notified - cont clinimix. - PEG placement on Sunday - f/u TFTs as outpt HLOC
[2019-01-16] MEDS ORDERED: DEXTROSE 5%-WATER - 50 ML IVPB ONE ×3 (00:33→17:50)
[2019-01-16] MEDS ORDERED: PIPERACILLIN/TAZOBACTAM 3.375 GM VIAL IVPB ONE ×3 (00:33→17:50)
[2019-01-16] MEDS: NYSTATIN 500,000 UNITS/5 ML SUSPENSION PO SCH ×4 (00:34→17:53)
[2019-01-16] MEDS: AMINO ACIDS 4.25%/D5W 1,000 ML IV SCH ×2 (01:30→05:33)
[2019-01-16] MEDS: PIPERACILLIN/TAZOB 3.375 GM 3.375 GM in DEXTROSE 5%-WATER - 50 ML IVPB SCH ×3 (01:31→17:52)
[2019-01-16] MEDS: HEPARIN NA (PORCINE) 5,000 UNITS/ML 1ML VIAL SQ SCH (05:33)
[2019-01-16 07:11] LABS: BASO % 0.3 % (0-2.0); EOS % 0.6 % (0-4.5); HEMATOCRIT 28.6 % (32.4-45.2); HEMOGLOBIN 9.3 GM/dL (10.7-15.3); MCH 27.6 pg (25.7-33.7); MCHC 32.6 g/dl (32.0-36.0); MEAN CELL VOLUME 84.6 fl (80-96); MEAN PLT VOLUME 7.4 fl (7.5-11.1); MONO % 11.2 % (3.8-10.2); NEUT % 63.9 % (42.8-82.8); PLATELET COUNT 276 K/MM3 (134-434); RBC 3.38 M/mm3 (3.60-5.2); WHITE BLOOD COUNT 4.8 K/mm3 (4.0-10.0)
[2019-01-16 07:53] LABS: BILIRUBIN,TOTAL 0.3 mg/dL (0.2-1); BLOOD UREA NITROGEN 18.7 mg/dL (7-18); CALCIUM 8.9 mg/dL (8.5-10.1); CREATININE 0.7 mg/dL (0.55-1.3); POTASSIUM 3.5 mmol/L (3.5-5.1); TOT PROT 6.2 g/dl (6.4-8.2)
[2019-01-16] MEDS: FLUCONAZOLE 100 MG/NS 50 ML IVPB SCH (09:39)
[2019-01-16] MEDS: Lacosamide 200 MG/20 ML VIAL IVPB SCH ×2 (09:39→21:22)
[2019-01-16] MEDS: THIAMINE HCL 200 MG/2 ML VIAL IVPB SCH ×2 (09:41→21:21)
[2019-01-16] MEDS: VALPROATE SODIUM 500 MG/5 ML VIAL IVPB SCH ×2 (09:41→21:21)
[2019-01-16 11:26] LABS: ANISOCYTOSIS 0; HELMET CELLS 0; HOWELL-JOLLY BODIES 0; MACROCYTOSIS 0; OVALOCYTE 0; PLATELET ESTIMATE NORMAL; ROULEAU 0; SICKELED CELLS 0; TARGET CELLS 0; TEAR DROP CELLS 0; TOXIC GRANULATION 0
--- NOTE | 2019-01-16 13:49 | PN ---
Teaching Attending Note Name of Resident: Dre Hayes ATTENDING PHYSICIAN STATEMENT I saw and evaluated the patient. I reviewed the resident's note and discussed the case with the resident. I agree with the resident's findings and plan as documented. SUBJECTIVE: No events over night OBJECTIVE: opens eyes to name, but does not track or follow commands CV: RRR, no MRG Lungs: CTAb , decreased breath sounds at bases Abd: soft, nl BD, NT Ext: contracted upper and lower extremities muscle atrophy. skin; stage 2 ulcer just above the buttock cleft about 2 cm in length ASSESSMENT AND PLAN: 73 y/o lady with h/o MS, CVA s/p L sided weakness and contraction, R nephrectomy , PNA, constipation , Seizure disorder 05/12, septic shock form UTI 11/10, who presented from home with seizure activity. 1- Seizure disorder 2- Encephalopathy 3- sepsis , resolved 4- fungal UTI 5- Abnormal TFTs. 6- severe protein calorie malnutrition plan : - cont depakote and vimpat - cont fluconazole and zosyn for now, pending ID eval today - cont clinimix. - PEG placement tomorrow . will need [place] utbe - hold heparin after [place]. - f/u TFTs as outpt HLOC DC planning depends on theneed fro IV Abx , and PEG placement .
[2019-01-16 14:07] LABS: ALBUMIN SERUM 3.1 g/dL (3.5-4.8); IGG QN CSF 10.6 mg/dL (0.0-8.6); IGG QN SERUM 1521 mg/dL (700-1600)
--- NOTE | 2019-01-16 15:07 | PN ---
Progress Note, Physician History of Present Illness: NOT RESPONSIVE TO VERBAL STIMULUS EYES OPEN HYPOTHERMIC WBC WNL BC (-) - Current Medication List Current Medications: Active Medications Glycerin (Glycerin Suppository Adult -) 1 each RC Q24H PRN PRN Reason: CONSTIPATION Heparin Sodium (Porcine) (Heparin -) 5,000 unit SQ TID [facility] Last Admin: 01/16/19 05:33 Dose: 5,000 unit Amino Acids (Clinimix -) 1,000 mls @ 42 mls/hr IV Q23H KRYSTEN Last Admin: 01/16/19 05:33 Dose: 42 mls/hr Piperacillin Sod/Tazobactam (Sod 3.375 gm/ Dextrose) 50 mls @ 100 mls/hr IVPB Q8H-IV KRYSTEN; Protocol Last Admin: 01/16/19 09:41 Dose: 100 mls/hr Fluconazole (Diflucan 100 Mg/Ns Premixed Ivpb -) 50 mls @ 50 mls/hr IVPB DAILY [facility] Last Admin: 01/16/19 09:39 Dose: 50 mls/hr Lacosamide (Vimpat Injection -) 200 mg IVPB BID [facility] Last Admin: 01/16/19 09:39 Dose: 200 mg Nystatin (Nystatin Oral Suspension -) 500,000 units PO Q6HPO [facility] Last Admin: 01/16/19 12:21 Dose: 500,000 units Thiamine HCl (Vitamin B1 Injection -) 200 mg IVPB BID [facility] Last Admin: 01/16/19 09:41 Dose: 200 mg Valproate Sodium (Depacon Injection -) 500 mg IVPB BID [facility] Last Admin: 01/16/19 09:41 Dose: 500 mg - Objective Vital Signs: Vital Signs Temperature 94.5 F L 01/16/19 14:00 Pulse Rate 48 L 01/16/19 14:00 Respiratory Rate 20 01/16/19 14:00 Blood Pressure 123/67 01/16/19 14:00 O2 Sat by Pulse Oximetry (%) 98 01/16/19 10:00 Constitutional: Yes: No Distress, Cachectic Cardiovascular: Yes: Regular Rate and Rhythm, S1, S2 Respiratory: Yes: CTA Bilaterally Gastrointestinal: Yes: Normal Bowel Sounds, Soft. No: Tenderness Edema: No Labs: CBC, BMP 01/16/19 06:30 01/16/19 06:30 INR, PTT INR 0.97 (0.83-1.09) 01/02/19 03:40 Assessment/Plan ? SEPSIS HYPOTHERMIA UTI R/O SEPSIS SECONDARY TO SOURCE S/P SEIZURE HX NEPHRECTOMY MS FOR PLACEMENT OF FEEDING GASTROSTOMY AM SWITCH TO ABX THRU GT WHEN PLACED
--- NOTE | 2019-01-16 17:48 | PN ---
Physical Exam: SUBJECTIVE: Patient seen and examined at the bedside, no acute events. OBJECTIVE: Vital Signs Period Temp Pulse Resp BP Sys/Varner Pulse Ox Last 24 Hr 94.5 F-98.3 F 48-72 16-20 105-154/39-88 98-98 Physical Exam: GENERAL: The patient is nonverbal only responsive to eye opening. EYES: left lateral gaze, sclera anicteric, No ptosis. NECK: Trachea midline, full range of motion, supple. LUNGS: Breath sounds equal, clear to auscultation bilaterally, no wheezes, no crackles, no accessory muscle use. HEART: Regular rate and rhythm, S1, S2 without murmur, rub or gallop. ABDOMEN: Soft, nontender, nondistended, normoactive bowel sounds, no guarding, no rebound. EXTREMITIES: 2+ pulses, warm, well-perfused, no edema. NEUROLOGICAL: Cranial nerves II through XII grossly intact. Normal speech, gait not observed. PSYCH: Normal mood, normal affect. SKIN: cool, dry, normal turgor, no rashes or lesions noted Laboratory Results - last 24 hr 01/13/19 01/13/19 01/16/19 16:15 16:15 06:30 WBC 4.8 RBC 3.38 L Hgb 9.3 L Hct 28.6 L MCV 84.6 MCH 27.6 MCHC 32.6 RDW 15.0 Plt Count 276 MPV 7.4 L Absolute Neuts (auto) 3.1 Neutrophils % 63.9 Neutrophils % (Manual) 64.0 Band Neutrophils % 0.0 Lymphocytes % 24.0 Lymphocytes % (Manual) 22.0 D Monocytes % 11.2 H Monocytes % (Manual) 11 H D Eosinophils % 0.6 Eosinophils % (Manual) 0.0 D Basophils % 0.3 Basophils % (Manual) 0.0 Myelocytes % (Man) 1 Promyelocytes % (Man) 0 Blast Cells % (Manual) 0 Nucleated RBC % 0 Metamyelocytes 0 Hypochromia 0 Toxic Granulation 0 Dohle Bodies 0 Platelet Estimate Normal Polychromasia 0 Poikilocytosis 0 Basophilic Stippling 0 Anisocytosis 0 Microcytosis 0 Macrocytosis 0 Spherocytes 0 Sickle Cells 0 Target Cells 0 Tear Drop Cells 0 Ovalocytes 0 Stomatocytes 0 Helmet Cells 0 [place] Bodies 0 Laporte Rings 0 Leeanne Cells 0 Acanthocytes (Spur) 0 Rouleaux 0 Fragmented RBCs 0 Schistocytes 0 Sodium Potassium Chloride Carbon Dioxide Anion Gap BUN Creatinine Est GFR (CKD-EPI)AfAm Est GFR (CKD-EPI)NonAf Random Glucose Calcium Total Bilirubin AST ALT Alkaline Phosphatase Total Protein Albumin CSF IEP IgG 10.6 H CSF VDRL Non reactive IgG 1521 01/16/19 06:30 WBC RBC Hgb Hct MCV MCH MCHC RDW Plt Count MPV Absolute Neuts (auto) Neutrophils % Neutrophils % (Manual) Band Neutrophils % Lymphocytes % Lymphocytes % (Manual) Monocytes % Monocytes % (Manual) Eosinophils % Eosinophils % (Manual) Basophils % Basophils % (Manual) Myelocytes % (Man) Promyelocytes % (Man) Blast Cells % (Manual) Nucleated RBC % Metamyelocytes Hypochromia Toxic Granulation Dohle Bodies Platelet Estimate Polychromasia Poikilocytosis Basophilic Stippling Anisocytosis Microcytosis Macrocytosis Spherocytes Sickle Cells Target Cells Tear Drop Cells Ovalocytes Stomatocytes Helmet Cells [place] Bodies Laporte Rings Leeanne Cells Acanthocytes (Spur) Rouleaux Fragmented RBCs Schistocytes Sodium 144 Potassium 3.5 Chloride 110 H Carbon Dioxide 30 Anion Gap 4 L BUN 18.7 H Creatinine 0.7 Est GFR (CKD-EPI)AfAm 101.03 Est GFR (CKD-EPI)NonAf 87.17 Random Glucose 83 Calcium 8.9 Total Bilirubin 0.3 AST 13 L ALT 7 L Alkaline Phosphatase 69 Total Protein 6.2 L Albumin 2.0 L CSF IEP IgG CSF VDRL IgG Active Medications Generic Name Dose Route Start Last Admin Trade Name Freq PRN Reason Stop Dose Admin Glycerin 1 each 01/10/19 18:05 Glycerin Suppository Adult - RC Q24H PRN CONSTIPATION Heparin Sodium (Porcine) 5,000 unit 01/13/19 22:00 01/16/19 05:33 Heparin - SQ 5,000 unit TID KRYSTEN Administration Amino Acids 1,000 mls @ 42 mls/hr 01/06/19 11:45 01/16/19 05:33 Clinimix - IV 42 mls/hr Q23H KRYSTEN Administration Piperacillin Sod/Tazobactam 50 mls @ 100 mls/hr 01/13/19 18:00 01/16/19 09:41 Sod 3.375 gm/ Dextrose IVPB 100 mls/hr Q8H-IV K[facility]STEN Administration Protocol Fluconazole 50 mls @ 50 mls/hr 01/13/19 18:00 01/16/19 09:39 Diflucan 100 Mg/Ns Premixed Ivpb - IVPB 50 mls/hr DAILY [facility] Administration Lacosamide 200 mg 01/07/19 22:00 01/16/19 09:39 Vimpat Injection - IVPB 200 mg BID [facility]STEN Administration Nystatin 500,000 units 01/15/19 12:00 01/16/19 12:21 Nystatin Oral Suspension - PO 500,000 units Q6HPO K[facility]STEN Administration Thiamine HCl 200 mg 01/08/19 10:00 01/16/19 09:41 Vitamin B1 Injection - IVPB 200 mg BID [facility]STEN Administration Valproate Sodium 500 mg 01/07/19 22:00 01/16/19 09:41 Depacon Injection - IVPB 500 mg BID [facility] Administration ASSESSMENT/PLAN: Patient is a 73 year old female with a past medical history of MS, CVA (2013, with left sided residual deficits, LUE contracture), R nephrectomy, presented to the ED due to seizures. Line: Rt sided cephalic vein central line in place (01/13 placement) #Seizures -Continue Vimpat 200mg BID and Valproate 500mg BID -Brain MRI: No definite interval changes in comparison to previous MRIs. Moderate to marked periventricular and subcortical chronic microvascular ischemic changes. Stable meningiomas within the right posterior cranial fossa. #Sepsis 2/2 UTI, resolved -Zosyn and fluconazole day 3 for zosyn and fluconazole. -ID (Dr. Rosa)- recs appreciated continue abx thru peg tube once it is placed. -Hypothermic barehuggers in place. #Acute metabolic encephalopathy -Brain MRI done- no interval change -72 hour EEG- no reported events -LP done elevated protein normal glucose and wbc count all other csf panel is pending. #Hypoglycemia -likely from poor oral intake -Resolved on IV Clinimix #FEN -IV D5/Ns @100cc/hr, 1 dose of LR was given for the bradycardia but that has been d/c and she has normal pulse. -repleted 30mm of NaPo4 since PO4 was 1.8 01/13. Will continue to monitor all lytes and this is probably due to clinimix. -Keep NPO for now and continue clinimix. #Prophylaxis -holding after midnight Heparin 5000u sq tid Dispo: IR will place PEG tube tomorrow. Will hold heparin that AM. Visit type - Emergency Visit Emergency Visit: No - New Patient This patient is new to me today: No - Critical Care Critical Care patient: No - Discharge Referral Referred to [facility] Med P.C.: No ATTENDING PHYSICIAN STATEMENT I saw and evaluated the patient. I reviewed the resident's note and discussed the case with the resident. I agree with the resident's findings and plan as documented. SUBJECTIVE: OBJECTIVE: ASSESSMENT AND PLAN:
[2019-01-17] MEDS: AMINO ACIDS 4.25%/D5W 1,000 ML IV SCH ×3 (00:40→23:01)
[2019-01-17] MEDS: NYSTATIN 500,000 UNITS/5 ML SUSPENSION PO SCH ×5 (00:40→23:01)
[2019-01-17] MEDS ORDERED: DEXTROSE 5%-WATER - 50 ML IVPB ONE ×3 (02:07→17:01)
[2019-01-17] MEDS ORDERED: PIPERACILLIN/TAZOBACTAM 3.375 GM VIAL IVPB ONE ×3 (02:07→17:01)
[2019-01-17] MEDS: PIPERACILLIN/TAZOB 3.375 GM 3.375 GM in DEXTROSE 5%-WATER - 50 ML IVPB SCH ×3 (02:42→17:06)
[2019-01-17] MEDS: HEPARIN NA (PORCINE) 5,000 UNITS/ML 1ML VIAL SQ SCH ×2 (06:00→21:17)
[2019-01-17] MEDS: VALPROATE SODIUM 500 MG/5 ML VIAL IVPB SCH ×2 (09:00→21:17)
[2019-01-17] MEDS: THIAMINE HCL 200 MG/2 ML VIAL IVPB SCH ×2 (09:00→21:17)
[2019-01-17] MEDS ORDERED: PROMETHAZINE HCL 25 MG/1 ML VIAL IVPB ONE (09:15)
[2019-01-17] MEDS ORDERED: GlUCAGON HUMAN RECOMBINANT 1 MG/VIAL IJ ONE (09:45)
[2019-01-17] MEDS: FLUCONAZOLE 100 MG/NS 50 ML IVPB SCH (13:04)
[2019-01-17] MEDS: Lacosamide 200 MG/20 ML VIAL IVPB SCH ×2 (13:04→21:17)
--- NOTE | 2019-01-17 15:24 | PN ---
Progress Note, Physician History of Present Illness: NOT RESPONSIVE TO VERBAL STIMULUS EYES OPEN HYPOTHERMIC WBC WNL BC (-) - Current Medication List Current Medications: Active Medications Glycerin (Glycerin Suppository Adult -) 1 each RC Q24H PRN PRN Reason: CONSTIPATION Amino Acids (Clinimix -) 1,000 mls @ 42 mls/hr IV Q23H [facility] Last Admin: 01/17/19 02:43 Dose: 42 mls/hr Piperacillin Sod/Tazobactam (Sod 3.375 gm/ Dextrose) 50 mls @ 100 mls/hr IVPB Q8H-IV KRYSTEN; Protocol Last Admin: 01/17/19 12:03 Dose: 100 mls/hr Fluconazole (Diflucan 100 Mg/Ns Premixed Ivpb -) 50 mls @ 50 mls/hr IVPB DAILY [facility] Last Admin: 01/17/19 13:04 Dose: 50 mls/hr Lacosamide (Vimpat Injection -) 200 mg IVPB BID [facility] Last Admin: 01/17/19 13:04 Dose: 200 mg Nystatin (Nystatin Oral Suspension -) 500,000 units PO Q6HPO [facility] Last Admin: 01/17/19 13:04 Dose: 500,000 units Thiamine HCl (Vitamin B1 Injection -) 200 mg IVPB BID [facility] Last Admin: 01/17/19 09:00 Dose: 200 mg Valproate Sodium (Depacon Injection -) 500 mg IVPB BID [facility] Last Admin: 01/17/19 09:00 Dose: 500 mg - Objective Vital Signs: Vital Signs Temperature 95.8 F L 01/17/19 11:39 Pulse Rate 62 01/17/19 11:39 Respiratory Rate 18 01/17/19 11:39 Blood Pressure 103/62 01/17/19 11:39 O2 Sat by Pulse Oximetry (%) 100 01/17/19 10:47 Constitutional: Yes: Cachectic Cardiovascular: Yes: Regular Rate and Rhythm, S1, S2 Respiratory: Yes: Diminished Gastrointestinal: Yes: Normal Bowel Sounds, Soft. No: Tenderness Labs: CBC, BMP 01/16/19 06:30 01/16/19 06:30 INR, PTT INR 0.97 (0.83-1.09) 01/02/19 03:40 Assessment/Plan ? SEPSIS HYPOTHERMIA UTI R/O SEPSIS SECONDARY TO SOURCE S/P SEIZURE HX NEPHRECTOMY MS S/P PLACEMENT OF FEEDING GASTROSTOMY SWITCH TO ABX THRU GT IN AM
--- NOTE | 2019-01-17 17:51 | PN ---
Physical Exam: SUBJECTIVE: Patient seen and examined at the bedside this AM. No acute events overnight. OBJECTIVE: Vital Signs Period Temp Pulse Resp BP Sys/Varner Pulse Ox Last 24 Hr 95.3 F-98.3 F 49-71 16-20 103-152/62-93 99-100 Physical Exam: GENERAL: The patient is nonverbal only responsive to eye opening. EYES: left lateral gaze, sclera anicteric, No ptosis. NECK: supple. LUNGS: Breath sounds reduced, no wheezes, no crackles, no accessory muscle use. HEART: Regular rate and rhythm, S1, S2 without murmur, rub or gallop. ABDOMEN: Soft, nontender, nondistended, no guarding, no rebound. EXTREMITIES: no edema. NEUROLOGICAL: gait not observed. PSYCH: Normal mood, normal affect. SKIN: cool, dry, normal turgor, no rashes or lesions noted Laboratory Results - last 24 hr 01/13/19 01/13/19 16:15 16:15 CSF Lyme IgG Ab 18 kDa Absent CSF Lyme IgG Ab 23 kDa Absent CSF Lyme IgG Ab 28 kDa Absent CSF Lyme IgG Ab 30 kDa Absent CSF Lyme IgG Ab 39 kDa Absent CSF Lyme IgG Ab 41 kDa Absent CSF Lyme IgG Ab 45 kDa Absent CSF Lyme IgG Ab 58 kDa Absent CSF Lyme IgG Ab 66 kDa Absent CSF Lyme IgG Ab 93 kDa Absent CSF Lyme IgM Ab 23 kDa Absent CSF Lyme IgM Ab 39 kDa Absent CSF Lyme IgM Ab 41 kDa Absent CSF West Nile IgG Ab Negative CSF West Nile IgM Ab Negative Lyme IgG Ab Interpret Negative Lyme IgM Ab Index Negative Active Medications Generic Name Dose Route Start Last Admin Trade Name Freq PRN Reason Stop Dose Admin Glycerin 1 each 01/10/19 18:05 Glycerin Suppository Adult - RC Q24H PRN CONSTIPATION Amino Acids 1,000 mls @ 42 mls/hr 01/06/19 11:45 01/17/19 02:43 Clinimix - IV 42 mls/hr Q23H KRYSTEN Administration Piperacillin Sod/Tazobactam 50 mls @ 100 mls/hr 01/13/19 18:00 01/17/19 17:06 Sod 3.375 gm/ Dextrose IVPB 100 mls/hr Q8H-IV K[facility]STEN Administration Protocol Fluconazole 50 mls @ 50 mls/hr 01/13/19 18:00 01/17/19 13:04 Diflucan 100 Mg/Ns Premixed Ivpb - IVPB 50 mls/hr DAILY [facility] Administration Lacosamide 200 mg 01/07/19 22:00 01/17/19 13:04 Vimpat Injection - IVPB 200 mg BID [facility]STEN Administration Nystatin 500,000 units 01/15/19 12:00 01/17/19 17:06 Nystatin Oral Suspension - PO 500,000 units Q6HPO KRYSTEN Administration Thiamine HCl 200 mg 01/08/19 10:00 01/17/19 09:00 Vitamin B1 Injection - IVPB 200 mg BID [facility] Administration Valproate Sodium 500 mg 01/07/19 22:00 01/17/19 09:00 Depacon Injection - IVPB 500 mg BID [facility] Administration ASSESSMENT/PLAN: Patient is a 73 year old female with a past medical history of MS, CVA (2013, with left sided residual deficits, LUE contracture), R nephrectomy, presented to the ED due to seizures. Line: Rt sided cephalic vein central line in place (01/13 placement) #Seizures -Continue Vimpat 200mg BID and Valproate 500mg BID #Sepsis 2/2 UTI, resolved -Zosyn and fluconazole day 4 for zosyn and fluconazole. -ID (Dr. Rosa)- continue abx thru peg tube once it is placed. - pt remains Hypothermic continuing sepsis workup, source not yet identified - barehugger in place. #Acute metabolic encephalopathy - LP results: CSF IEP IgG (10.4), CSF total protein (54), oligoclonal bands pending, VDRL negative. Further results are pending or negative. #Hypoglycemia -likely from poor oral intake -Resolved #FEN -IV D5/amino acid -Will continue to monitor all lytes -Keep NPO. - will resume tube feeds and medications through PEG tube tm. #Prophylaxis -back on Heparin 5000u sq tid Dispo: palliative care consulted. End of life goals must be addressed with patients family. Visit type - Emergency Visit Emergency Visit: No - New Patient This patient is new to me today: No - Critical Care Critical Care patient: No - Discharge Referral Referred to [facility] Med P.C.: No ATTENDING PHYSICIAN STATEMENT I saw and evaluated the patient. I reviewed the resident's note and discussed the case with the resident. I agree with the resident's findings and plan as documented. SUBJECTIVE: OBJECTIVE: ASSESSMENT AND PLAN:
--- NOTE | 2019-01-17 18:11 | PN ---
Teaching Attending Note Name of Resident: Leonel Lin ATTENDING PHYSICIAN STATEMENT I saw and evaluated the patient. I reviewed the resident's note and discussed the case with the resident. I agree with the resident's findings and plan as documented. SUBJECTIVE: Events over night notable for hypothermia OBJECTIVE: no response today CV: RRR, no MRG Lungs: CTAB, decreased breath sounds at bases Abd: soft, nl BS, NT Ext: contracted upper and lower extremities muscle atrophy. skin; stage 2 ulcer on sacrum was not examined today ASSESSMENT AND PLAN: 73 y/o lady with h/o MS, CVA s/p L sided weakness and contraction, R nephrectomy , PNA, constipation , Seizure disorder 05/12, septic shock form UTI 11/10, who presented from home with seizure activity. 1- Seizure disorder 2- Encephalopathy 3- sepsis , resolved 4- fungal UTI 5- Abnormal TFTs. 6- severe protein calorie malnutrition 7- hypothermia plan : - hypothermia might be central due to MS ? - cont depakote and vimpat - cont fluconazole and zosyn for now, possible PO conversion tomorrow - switch to TF tomorrow am . PEg in . d/w dietitian - - f/u TFTs as outpt will revisit goals of care with daughter
[2019-01-18] MEDS ORDERED: PIPERACILLIN/TAZOBACTAM 3.375 GM VIAL IVPB ONE ×3 (01:04→16:54)
[2019-01-18] MEDS ORDERED: DEXTROSE 5%-WATER - 50 ML IVPB ONE ×3 (01:04→16:54)
[2019-01-18] MEDS: PIPERACILLIN/TAZOB 3.375 GM 3.375 GM in DEXTROSE 5%-WATER - 50 ML IVPB SCH ×3 (01:31→17:12)
[2019-01-18] MEDS: HEPARIN NA (PORCINE) 5,000 UNITS/ML 1ML VIAL SQ SCH ×3 (06:27→21:19)
[2019-01-18] MEDS: NYSTATIN 500,000 UNITS/5 ML SUSPENSION PO SCH ×4 (06:27→23:04)
[2019-01-18] MEDS ORDERED: PT OWN MED DRAWER 7, Y5N ONE (09:20)
[2019-01-18] MEDS: Lacosamide 200 MG/20 ML VIAL IVPB SCH ×2 (10:15→21:19)
[2019-01-18] MEDS: THIAMINE HCL 200 MG/2 ML VIAL IVPB SCH ×2 (11:24→21:19)
--- NOTE | 2019-01-18 11:35 | PN ---
Teaching Attending Note Name of Resident: Prosper Hayes ATTENDING PHYSICIAN STATEMENT I saw and evaluated the patient. I reviewed the resident's note and discussed the case with the resident. I agree with the resident's findings and plan as documented. SUBJECTIVE: No events over night. OBJECTIVE: opens her eyes to calling her name,but no other response CV: RRR, no MRG Lungs: CTAB, decreased breath sounds at bases Abd: soft, nl BS, NT. PEG in Ext: contracted upper and lower extremities muscle atrophy. ASSESSMENT AND PLAN: 73 y/o lady with h/o MS, CVA s/p L sided weakness and contraction, R nephrectomy , PNA, constipation , Seizure disorder 05/12, septic shock form UTI 11/10, who presented from home with seizure activity. 1- Seizure disorder 2- Encephalopathy 3- sepsis , resolved 4- fungal UTI 5- Abnormal TFTs. 6- severe protein calorie malnutrition 7- hypothermia plan : - hypothermia might be central ? due to MS - cont depakote and vimpat - antibiotics and antifungals per ID -start TF today . dc clinimix - f/u TFTs as outpt will discuss current status and goals of care again today
[2019-01-18] MEDS: VALPROATE SODIUM 500 MG/5 ML VIAL IVPB SCH ×2 (12:01→21:19)
[2019-01-18 12:07] LABS: LYME PCR CSF Negative (Negative)
[2019-01-18] MEDS: FLUCONAZOLE 100 MG/NS 50 ML IVPB SCH (13:35)
--- NOTE | 2019-01-18 17:13 | PN ---
Physical Exam: SUBJECTIVE: Patient seen and examined at bedside. Today she does not open her eyes to her name being called. OBJECTIVE: Vital Signs Period Temp Pulse Resp BP Sys/Varner Pulse Ox Last 24 Hr 95.1 F-99.5 F 51-82 16-20 112-158/69-91 97-100 GENERAL: The patient is not awake, in no distress, NG still in but will be d/c later today. HEAD: white stuff in her hair unsure if it is from soap, but been there her entire stay. NECK: supple. LUNGS: Breath sounds decreased, no wheezes, no crackles, no accessory muscle use. HEART: Regular rate and rhythm, S1, S2 without murmur, rub or gallop. ABDOMEN: Soft, nontender, nondistended, no guarding, no rebound. EXTREMITIES: cool, no edema. upper extremity Left side contracture NEUROLOGICAL: gait not observed. Laboratory Results - last 24 hr 01/13/19 16:15 CSF Lyme Disease DNA Negative Active Medications Generic Name Dose Route Start Last Admin Trade Name Freq PRN Reason Stop Dose Admin Glycerin 1 each 01/10/19 18:05 Glycerin Suppository Adult - RC Q24H PRN CONSTIPATION Heparin Sodium (Porcine) 5,000 unit 01/17/19 22:00 01/18/19 13:40 Heparin - SQ 5,000 unit TID KRYSTEN Administration Piperacillin Sod/Tazobactam 50 mls @ 100 mls/hr 01/13/19 18:00 01/18/19 09:29 Sod 3.375 gm/ Dextrose IVPB 100 mls/hr Q8H-IV KRYSTEN Administration Protocol Fluconazole 50 mls @ 50 mls/hr 01/13/19 18:00 01/18/19 13:35 Diflucan 100 Mg/Ns Premixed Ivpb - IVPB 50 mls/hr DAILY KRYSTEN Administration Lacosamide 200 mg 01/07/19 22:00 01/18/19 10:15 Vimpat Injection - IVPB 200 mg BID KRYSTEN Administration Nystatin 500,000 units 01/15/19 12:00 01/18/19 13:42 Nystatin Oral Suspension - PO 500,000 units Q6HPO KRYSTEN Administration Thiamine HCl 200 mg 01/08/19 10:00 01/18/19 11:24 Vitamin B1 Injection - IVPB 200 mg BID KRYSTEN Administration Valproate Sodium 500 mg 01/07/19 22:00 01/18/19 12:01 Depacon Injection - IVPB 500 mg BID KRYSTEN Administration ASSESSMENT/PLAN: Patient is a 73 year old female with a past medical history of MS, CVA (2013, with left sided residual deficits, LUE contracture), R nephrectomy, presented to the ED due to seizures. Line: Rt sided cephalic vein central line in place (01/13 placement) #Seizures -Continue Vimpat 200mg BID and Valproate 500mg BID #Sepsis 2/2 UTI, resolved -Zosyn and fluconazole day 4 for zosyn and fluconazole. -ID (Dr. Rosa)- continue abx thru peg tube. - pt no longer hypothermic continuing sepsis workup, source not yet identified - barehugger PRN if temp <97. #Acute metabolic encephalopathy - LP results: CSF IEP IgG (10.4), CSF total protein (54), oligoclonal bands pending, VDRL negative, all the lyme results and west nile virus are negative. #Hypoglycemia -likely from poor oral intake -Resolved #FEN -Will continue to monitor all lytes -Keep NPO. - resuming tube feeds as per gas well pumper instructions and all meds will be given through PEG. #Prophylaxis -back on Heparin 5000u sq tid Dispo: palliative care consulted. End of life goals must addressed with patients daughter mick. Spoke to her about patients status, potential hospice options, and what her mothers wishes were. Patient wishes to speak to her family and will get back to me on her decision. Visit type - Emergency Visit Emergency Visit: No - New Patient This patient is new to me today: No - Critical Care Critical Care patient: No - Discharge Referral Referred to [facility] Med P.C.: No ATTENDING PHYSICIAN STATEMENT I saw and evaluated the patient. I reviewed the resident's note and discussed the case with the resident. I agree with the resident's findings and plan as documented. SUBJECTIVE: OBJECTIVE: ASSESSMENT AND PLAN:
[2019-01-19] MEDS ORDERED: DEXTROSE 5%-WATER - 50 ML IVPB ONE ×3 (01:03→16:44)
[2019-01-19] MEDS ORDERED: PIPERACILLIN/TAZOBACTAM 3.375 GM VIAL IVPB ONE ×3 (01:03→16:44)
[2019-01-19] MEDS: PIPERACILLIN/TAZOB 3.375 GM 3.375 GM in DEXTROSE 5%-WATER - 50 ML IVPB SCH ×3 (01:17→17:10)
[2019-01-19] MEDS: HEPARIN NA (PORCINE) 5,000 UNITS/ML 1ML VIAL SQ SCH ×3 (06:06→22:34)
[2019-01-19] MEDS: NYSTATIN 500,000 UNITS/5 ML SUSPENSION PO SCH ×2 (06:06→12:06)
[2019-01-19 08:08] LABS: ALBUMIN 1.9 g/dl (3.4-5.0); BILIRUBIN,TOTAL 0.2 mg/dL (0.2-1); BLOOD UREA NITROGEN 17.9 mg/dL (7-18); CALCIUM 9.2 mg/dL (8.5-10.1); CREATININE 0.7 mg/dL (0.55-1.3); POTASSIUM 3.2 mmol/L (3.5-5.1)
[2019-01-19 08:13] LABS: BASO % 0.3 % (0-2.0); EOS % 0.6 % (0-4.5); HEMATOCRIT 31.9 % (32.4-45.2); HEMOGLOBIN 10.3 GM/dL (10.7-15.3); LYMPH % 17.6 % (8-40); MCH 27.4 pg (25.7-33.7); MCHC 32.4 g/dl (32.0-36.0); MEAN CELL VOLUME 84.4 fl (80-96); MEAN PLT VOLUME 7.7 fl (7.5-11.1); MONO % 11.7 % (3.8-10.2); NEUT % 69.8 % (42.8-82.8); PLATELET COUNT 215 K/MM3 (134-434); RBC 3.78 M/mm3 (3.60-5.2); RDW 15.7 % (11.6-15.6); WHITE BLOOD COUNT 5.7 K/mm3 (4.0-10.0)
[2019-01-19] MEDS ORDERED: PT OWN MED DRAWER 7, Y5N ONE ×2 (09:05→22:38)
[2019-01-19] MEDS: Lacosamide 200 MG/20 ML VIAL IVPB SCH ×2 (09:15→22:27)
[2019-01-19] MEDS: THIAMINE HCL 200 MG/2 ML VIAL IVPB SCH ×2 (09:55→22:25)
[2019-01-19] MEDS: FLUCONAZOLE 100 MG/NS 50 ML IVPB SCH (10:48)
[2019-01-19] MEDS: VALPROATE SODIUM 500 MG/5 ML VIAL IVPB SCH ×2 (10:48→22:38)
[2019-01-19] MEDS ORDERED: GLYCERIN 1 RECTAL SUPPOSITORY, ADULT RC PRN (13:27)
[2019-01-19] MEDS ORDERED: POTASSIUM CHLORIDE ORAL LIQUID 20 MEQ/15 ML PEG ONE (14:15)
--- NOTE | 2019-01-19 14:15 | PN ---
Progress Note (short form) - Note Progress Note: Subjective: no events Objective: Vital Signs: Last Vital Signs Temp Pulse Resp BP Pulse Ox 97.1 F L 75 18 100/69 98 01/19/19 10:56 01/19/19 09:35 01/19/19 09:35 01/19/19 09:35 01/19/19 09:00 Laboratory Results - last 24 hr 01/19/19 01/19/19 06:50 06:50 WBC 5.7 RBC 3.78 Hgb 10.3 L Hct 31.9 L MCV 84.4 MCH 27.4 MCHC 32.4 RDW 15.7 H Plt Count 215 D MPV 7.7 Absolute Neuts (auto) 4.0 Neutrophils % 69.8 Lymphocytes % 17.6 D Monocytes % 11.7 H Eosinophils % 0.6 Basophils % 0.3 Nucleated RBC % 0 Sodium 146 H Potassium 3.2 L Chloride 110 H Carbon Dioxide 29 Anion Gap 7 L BUN 17.9 Creatinine 0.7 Est GFR (CKD-EPI)AfAm 101.03 Est GFR (CKD-EPI)NonAf 87.17 Random Glucose 75 Calcium 9.2 Total Bilirubin 0.2 AST 23 ALT 6 L Alkaline Phosphatase 64 Total Protein 6.0 L Albumin 1.9 L Physical Exam: opens her eyes to calling her name,but no other response CV: RRR, no MRG Lungs: CTAB, decreased breath sounds at bases Abd: soft, nl BS, NT. PEG in Ext: contracted upper and lower extremities muscle atrophy. ASSESSMENT AND PLAN: 73 y/o lady with h/o MS, CVA s/p L sided weakness and contraction, R nephrectomy , PNA, constipation , Seizure disorder 05/12, septic shock form UTI 11/10, who presented from home with seizure activity. 1- Seizure disorder 2- Encephalopathy 3- sepsis , resolved 4- fungal UTI 5- Abnormal TFTs. 6- severe protein calorie malnutrition 7- hypothermia plan : - hypothermia might be central ? due to MS . improved today - cont depakote and vimpat - antibiotics and antifungals per ID -cont TF - f/u TFTs as outpt goals of care were d/w daughter .hospice was discussed. she will think about it Visit type - Emergency Visit Emergency Visit: Yes ED Registration Date: 01/02/19 Care time: The patient presented to the Emergency Department on the above date and was hospitalized for further evaluation of their emergent condition. - New Patient This patient is new to me today: No - Critical Care Critical Care patient: No
[2019-01-20] MEDS ORDERED: PIPERACILLIN/TAZOBACTAM 3.375 GM VIAL IVPB ONE ×2 (00:40→10:01)
[2019-01-20] MEDS ORDERED: DEXTROSE 5%-WATER - 50 ML IVPB ONE ×2 (00:41→10:01)
[2019-01-20] MEDS: PIPERACILLIN/TAZOB 3.375 GM 3.375 GM in DEXTROSE 5%-WATER - 50 ML IVPB SCH ×2 (01:26→11:07)
[2019-01-20] MEDS: HEPARIN NA (PORCINE) 5,000 UNITS/ML 1ML VIAL SQ SCH ×3 (06:13→21:52)
[2019-01-20 09:51] LABS: BLOOD UREA NITROGEN 12.1 mg/dL (7-18); CREATININE 0.8 mg/dL (0.55-1.3); POTASSIUM 3.1 mmol/L (3.5-5.1)
[2019-01-20] MEDS ORDERED: FLUCONAZOLE 100 MG/NS 50 ML IVPB SCH (10:00)
[2019-01-20] MEDS: THIAMINE HCL 200 MG/2 ML VIAL IVPB SCH ×2 (11:06→21:52)
[2019-01-20] MEDS: Lacosamide 200 MG/20 ML VIAL IVPB SCH (11:06)
[2019-01-20] MEDS: VALPROATE SODIUM 500 MG/5 ML VIAL IVPB SCH ×2 (11:07→21:51)
--- NOTE | 2019-01-20 15:35 | PN ---
Teaching Attending Note Name of Resident: Prosper Hayes ATTENDING PHYSICIAN STATEMENT I saw and evaluated the patient. I reviewed the resident's note and discussed the case with the resident. I agree with the resident's findings and plan as documented. SUBJECTIVE: No events over night. OBJECTIVE: Opens her eyes to calling her name,but no other response CV: RRR, no MRG Lungs: CTAB Abd: soft, nl BS, NT. PEG in Ext: contracted upper and lower extremities muscle atrophy. ASSESSMENT AND PLAN: 73 y/o lady with h/o MS, CVA s/p L sided weakness and contraction, R nephrectomy , PNA, constipation , Seizure disorder 05/12, septic shock form UTI 11/10, who presented from home with seizure activity. 1- Seizure disorder 2- Encephalopathy 3- Sepsis, resolved 4- fungal UTI 5- Abnormal TFTs. 6- severe protein calorie malnutrition 7- hypothermia 8- hypernatremia. dehydration plan : - hypothermia might be central ? due to MS. resolved - cont depakote and vimpat. change Vimpat to liquid form through PEG. - d/w ID , switched to Augmentin - cont TF - increase free water - f/u TFTs as outpt d/w social workers regarding dispo. [facility] placement vs [place] pending d/w daughter
[2019-01-20] MEDS ORDERED: POTASSIUM CHLORIDE ORAL LIQUID 20 MEQ/15 ML PEG ONE (15:36)
[2019-01-20 16:17] VITALS: BMI 15.0
[2019-01-20] MEDS: AMOX TR/POTASSIUM CLAVULANATE 600 MG/5 ML PO SCH (17:56)
--- NOTE | 2019-01-20 18:05 | PN ---
Physical Exam: SUBJECTIVE: Patient seen and examined at bedside. NO acute events overnight. OBJECTIVE: Vital Signs Period Temp Pulse Resp BP Sys/Varner Pulse Ox Last 24 Hr 97.9 F-98.9 F 80-96 18-20 103-148/58-98 98-98 GENERAL: The patient is nonverbal, nonarousable NECK: supple. LUNGS: decreased breath sounds b/l. HEART: Regular rate and rhythm, S1, S2 without murmur, rub or gallop. ABDOMEN: Soft, nontender, nondistended, normoactive bowel sounds, no guarding, no rebound. EXTREMITIES: warm, well-perfused, no edema. NEUROLOGICAL: nonverbal, unarousable, poor mental status SKIN: sacral decub may have improved, tough to assess due to alot of feces covering area. Laboratory Results - last 24 hr 01/13/19 01/20/19 16:15 07:05 Sodium 146 H Potassium 3.1 L Chloride 109 H Carbon Dioxide 30 Anion Gap 7 L BUN 12.1 Creatinine 0.8 Est GFR (CKD-EPI)AfAm 85.97 Est GFR (CKD-EPI)NonAf 74.17 Random Glucose 181 H Calcium 9.0 Ser Oligoclonal Bands Active Medications Generic Name Dose Route Start Last Admin Trade Name Freq PRN Reason Stop Dose Admin Amoxicillin/Clavulanate Potassium 600 mg 01/20/19 17:30 01/20/19 17:56 Augmentin 600 Mg/5 Ml Oral Suspension - PO 600 mg BID@0800,1730 KRYSTEN Administration Glycerin 1 each 01/19/19 13:27 Glycerin Suppository Adult - RC Q24H PRN CONSTIPATION Heparin Sodium (Porcine) 5,000 unit 01/17/19 22:00 01/20/19 14:45 Heparin - SQ 5,000 unit TID KRYSTEN Administration Lacosamide 200 mg 01/20/19 22:00 Vimpat Liquid - PEG BID KRYSTEN Thiamine HCl 200 mg 01/19/19 22:00 01/20/19 11:06 Vitamin B1 Injection - IVPB 200 mg BID KRYSTEN Administration Valproate Sodium 500 mg 01/19/19 22:00 01/20/19 11:07 Depacon Injection - IVPB 500 mg BID KRYSTEN Administration ASSESSMENT/PLAN: Patient is a 73 year old female with a past medical history of MS, CVA (2013, with left sided residual deficits, LUE contracture), R nephrectomy, presented to the ED due to seizures. Line: Rt sided cephalic vein central line in place (01/13 placement) #Seizures -Continue Vimpat 200mg BID and Valproate 500mg BID #Sepsis 2/2 UTI, resolved -ID (Dr. Rosa)- switch to augmentin through PEG. - pt no longer hypothermic - barehugger PRN if temp <97. #Acute metabolic encephalopathy - LP results: CSF IEP IgG (10.4), CSF total protein (54), oligoclonal bands negative, VDRL negative, all the lyme results and west nile virus are negative. #Hypoglycemia -likely from poor oral intake -Resolved #FEN -Will continue to monitor all lytes -Keep NPO. - resuming tube feeds as per third miller instructions and all meds will be given through PEG. #Prophylaxis -back on Heparin 5000u sq tid Dispo: palliative care consulted. End of life goals must addressed with patients daughter mick. Could not get in touch with daughter regarding [facility]ci placement Will try again tomorrow and find out where she would like to send her mother. Visit type - Emergency Visit Emergency Visit: No - New Patient This patient is new to me today: No - Critical Care Critical Care patient: No - Discharge Referral Referred to [facility] Med P.C.: No ATTENDING PHYSICIAN STATEMENT I saw and evaluated the patient. I reviewed the resident's note and discussed the case with the resident. I agree with the resident's findings and plan as documented. SUBJECTIVE: OBJECTIVE: ASSESSMENT AND PLAN:
[2019-01-20] MEDS: Lacosamide 50 MG/5 ML ORAL SOLUTION UNIT CUPS PEG SCH (21:50)
[2019-01-21] MEDS: HEPARIN NA (PORCINE) 5,000 UNITS/ML 1ML VIAL SQ SCH ×3 (05:50→22:39)
[2019-01-21] MEDS ORDERED: PT OWN MED DRAWER 7, Y5N ONE ×3 (08:47→14:57)
[2019-01-21] MEDS: AMOX TR/POTASSIUM CLAVULANATE 600 MG/5 ML PO SCH ×2 (08:56→17:48)
[2019-01-21] MEDS: THIAMINE HCL 200 MG/2 ML VIAL IVPB SCH ×2 (09:09→22:40)
[2019-01-21] MEDS: Lacosamide 50 MG/5 ML ORAL SOLUTION UNIT CUPS PEG SCH ×2 (09:10→22:40)
[2019-01-21] MEDS: VALPROATE SODIUM 500 MG/5 ML VIAL IVPB SCH (10:54)
--- NOTE | 2019-01-21 18:01 | PN ---
Physical Exam: SUBJECTIVE: Patient seen and examined at the bedside this am. No acute events overnight. OBJECTIVE: Vital Signs Period Temp Pulse Resp BP Sys/Varner Pulse Ox Last 24 Hr 97.3 F-99.7 F 84-95 16-18 91-121/58-78 96 GENERAL: The patient is nonverbal and nonarousable, worse than before. NECK: supple. LUNGS: Breath sounds reduced b/l, no wheezing or crackles noted. HEART: Regular rate and rhythm, S1, S2 without murmur, rub or gallop. ABDOMEN: Soft, nontender, nondistended, normoactive bowel sounds, no guarding, no rebound. EXTREMITIES: warm, well-perfused, no edema. SKIN: sacral decub unclear but I believe it has resolved on the buttock. Active Medications Generic Name Dose Route Start Last Admin Trade Name Freq PRN Reason Stop Dose Admin Amoxicillin/Clavulanate Potassium 600 mg 01/20/19 17:30 01/21/19 17:48 Augmentin 600 Mg/5 Ml Oral Suspension - PO 600 mg BID@0800,1730 KRYSTEN Administration Glycerin 1 each 01/19/19 13:27 Glycerin Suppository Adult - RC Q24H PRN CONSTIPATION Heparin Sodium (Porcine) 5,000 unit 01/17/19 22:00 01/21/19 14:59 Heparin - SQ 5,000 unit TID KRYSTEN Administration Lacosamide 200 mg 01/20/19 22:00 01/21/19 09:10 Vimpat Liquid - PEG 200 mg BID KRYSTEN Administration Thiamine HCl 200 mg 01/19/19 22:00 01/21/19 09:09 Vitamin B1 Injection - IVPB 200 mg BID KRYSTEN Administration Valproate Sodium 500 mg 01/19/19 22:00 01/21/19 10:54 Depacon Injection - IVPB 500 mg BID KRYSTEN Administration ASSESSMENT/PLAN: Patient is a 73 year old female with a past medical history of MS, CVA (2013, with left sided residual deficits, LUE contracture), R nephrectomy, presented to the ED due to seizures. Line: Rt sided cephalic vein central line in place (01/13 placement) #Seizures -Continue Vimpat 200mg BID and Valproate 500mg BID #Sepsis 2/2 UTI, resolved -ID (Dr. Rosa)- switch to augmentin through PEG day 2, 01/22 will be day 3. . - pt no longer hypothermic - barehugger PRN if temp <97. #Acute metabolic encephalopathy - LP results: CSF IEP IgG (10.4), CSF total protein (54), oligoclonal bands negative, VDRL negative, all the lyme results and west nile virus are negative. #Hypoglycemia -likely from poor oral intake -Resolved #FEN -Will continue to monitor all lytes -Keep NPO. - resuming tube feeds as per lacquer dipping machine operator instructions and all meds will be given through PEG. #Prophylaxis -Heparin 5000u sq tid Dispo: Daughter not interested in hospice, wants to speak with Dr. Hough to have him explain if her mothers mental status can improve and to speak with about skilled nursing placement. Visit type - Emergency Visit Emergency Visit: No - New Patient This patient is new to me today: No - Critical Care Critical Care patient: No - Discharge Referral Referred to [facility] Med P.C.: No ATTENDING PHYSICIAN STATEMENT I saw and evaluated the patient. I reviewed the resident's note and discussed the case with the resident. I agree with the resident's findings and plan as documented. SUBJECTIVE: OBJECTIVE: ASSESSMENT AND PLAN:
--- NOTE | 2019-01-21 19:21 | PN ---
Teaching Attending Note Name of Resident: Prosper Hayes ATTENDING PHYSICIAN STATEMENT I saw and evaluated the patient. I reviewed the resident's note and discussed the case with the resident. I agree with the resident's findings and plan as documented. SUBJECTIVE: no events over night OBJECTIVE: no response. CV: RRR, no MRG Lungs: CTAB Abd: soft, nl BS, NT. Ext: contracted upper and lower extremities. muscle atrophy. ASSESSMENT AND PLAN: 73 y/o lady with h/o MS, CVA s/p L sided weakness and contraction, R nephrectomy , PNA, constipation , Seizure disorder 05/12, septic shock form UTI 11/10, who presented from home with seizure activity. 1- Seizure disorder 2- Encephalopathy 3- Sepsis, resolved 4- fungal UTI 5- Abnormal TFTs. 6- severe protein calorie malnutrition 7- hypothermia 8- hypernatremia. dehydration plan : - hypothermia might be central ? due to MS. resolved - cont depakote and vimpat. - cont Augmentin - cont TF - cont free water - f/u TFTs as outpt daughter is still deciding on NH. Hospice was declined
[2019-01-21] MEDS ORDERED: INSULIN (LEVEMIR) 100 UNITS/ML UNITS SQ ONE (19:41)
[2019-01-21] MEDS: VALPROATE SODIUM 250 MG/5 ML UNIT DOSE CUP PEG SCH (22:40)
[2019-01-22] MEDS: HEPARIN NA (PORCINE) 5,000 UNITS/ML 1ML VIAL SQ SCH ×3 (05:27→21:31)
[2019-01-22 08:51] LABS: BLOOD UREA NITROGEN 18.1 mg/dL (7-18); CREATININE 0.8 mg/dL (0.55-1.3); POTASSIUM 4.4 mmol/L (3.5-5.1)
[2019-01-22] MEDS ORDERED: PT OWN MED DRAWER 7, Y5N ONE ×3 (09:07→21:07)
[2019-01-22] MEDS: Lacosamide 50 MG/5 ML ORAL SOLUTION UNIT CUPS PEG SCH ×2 (09:10→21:31)
[2019-01-22] MEDS: THIAMINE HCL 200 MG/2 ML VIAL IVPB SCH ×2 (09:10→21:32)
[2019-01-22] MEDS: AMOX TR/POTASSIUM CLAVULANATE 600 MG/5 ML PO SCH ×2 (09:11→19:37)
[2019-01-22] MEDS: VALPROATE SODIUM 250 MG/5 ML UNIT DOSE CUP PEG SCH ×2 (09:13→21:32)
--- NOTE | 2019-01-22 15:07 | PN ---
Teaching Attending Note Name of Resident: Prosper Hayes ATTENDING PHYSICIAN STATEMENT I saw and evaluated the patient. I reviewed the resident's note and discussed the case with the resident. I agree with the resident's findings and plan as documented. SUBJECTIVE: Patient continues to be non verbal, does not follow any command. OBJECTIVE: Vital Signs Temperature 98.4 F 01/22/19 14:00 Pulse Rate 81 01/22/19 14:00 Respiratory Rate 18 01/22/19 14:00 Blood Pressure 95/59 L 01/22/19 14:00 O2 Sat by Pulse Oximetry (%) 100 01/21/19 21:00 GENERAL: The patient opens her eyes when called her name, but non verbal. HEAD: Normal with no signs of trauma. EYES: opens when called her name . NECK: supple. LUNGS: Breath sounds equal, clear to auscultation bilaterally, no wheezes, no crackles, no accessory muscle use. HEART: Regular rate and rhythm, S1, S2 without murmur, rub or gallop. ABDOMEN: Soft, nontender, nondistended, normoactive bowel sounds, no guarding, no rebound, no hepatosplenomegaly, no masses. EXTREMITIES: 2+ pulses, warm, well-perfused, no edema. NEUROLOGICAL: non verbal. PSYCH: Non verbal , normal affect. SKIN: Warm, dry, normal turgor, no rashes noted CBCD WBC 5.7 K/mm3 (4.0-10.0) 01/19/19 06:50 RBC 3.78 M/mm3 (3.60-5.2) 01/19/19 06:50 Hgb 10.3 GM/dL (10.7-15.3) L 01/19/19 06:50 Hct 31.9 % (32.4-45.2) L 01/19/19 06:50 MCV 84.4 fl (80-96) 01/19/19 06:50 MCHC 32.4 g/dl (32.0-36.0) 01/19/19 06:50 RDW 15.7 % (11.6-15.6) H 01/19/19 06:50 Plt Count 215 K/MM3 (134-434) D 01/19/19 06:50 MPV 7.7 fl (7.5-11.1) 01/19/19 06:50 CMP Sodium 140 mmol/L (136-145) 01/22/19 06:34 Potassium 4.4 mmol/L (3.5-5.1) 01/22/19 06:34 Chloride 104 mmol/L (98-107) 01/22/19 06:34 Carbon Dioxide 28 mmol/L (21-32) 01/22/19 06:34 Anion Gap 8 MMOL/L (8-16) 01/22/19 06:34 BUN 18.1 mg/dL (7-18) H 01/22/19 06:34 Creatinine 0.8 mg/dL (0.55-1.3) 01/22/19 06:34 Random Glucose 240 mg/dL (74-106) H 01/22/19 06:34 Calcium 9.0 mg/dL (8.5-10.1) 01/22/19 06:34 Total Bilirubin 0.2 mg/dL (0.2-1) 01/19/19 06:50 AST 23 U/L (15-37) 01/19/19 06:50 ALT 6 U/L (13-61) L 01/19/19 06:50 Alkaline Phosphatase 64 U/L (45-117) 01/19/19 06:50 Total Protein 6.0 g/dl (6.4-8.2) L 01/19/19 06:50 Albumin 1.9 g/dl (3.4-5.0) L 01/19/19 06:50 CARDIAC ENZYMES Creatine Kinase 166 U/L (26-192) 01/02/19 03:40 Troponin I < 0.02 ng/ml (0.00-0.05) 01/02/19 03:40 Current Medications Generic Name Dose Route Start Last Admin Trade Name Freq PRN Reason Stop Dose Admin Amoxicillin/Clavulanate Potassium 600 mg 01/20/19 17:30 01/22/19 09:11 Augmentin 600 Mg/5 Ml Oral Suspension - PO 600 mg BID@0800,1730 [facility] Administration Glycerin 1 each 01/19/19 13:27 Glycerin Suppository Adult - RC Q24H PRN CONSTIPATION Heparin Sodium (Porcine) 5,000 unit 01/17/19 22:00 01/22/19 14:22 Heparin - SQ 5,000 unit TID KRYSTEN Administration Lacosamide 200 mg 01/20/19 22:00 01/22/19 09:10 Vimpat Liquid - PEG 200 mg BID KRYSTEN Administration Thiamine HCl 200 mg 01/19/19 22:00 01/22/19 09:10 Vitamin B1 Injection - IVPB 200 mg BID KRYSTEN Administration Valproate Sodium 500 mg 01/21/19 22:00 01/22/19 09:13 Depakene - PEG 500 mg BID KRYSTEN Administration Home Medications Medication Instructions Recorded levETIRAcetam [Keppra -] 250 mg PO BID 01/02/19 Microbiology 01/13/19 13:25 Blood - Peripheral Venous Blood Culture - Final NO GROWTH AFTER 5 DAYS INCUBATION 01/13/19 13:30 Blood - Peripheral Venous Blood Culture - Final NO GROWTH AFTER 5 DAYS INCUBATION 01/13/19 16:15 Cerebral Spinal Fluid - Lumbar Puncture Gram Stain - Final 01/13/19 16:15 Cerebral Spinal Fluid - Lumbar Puncture CSF Culture - Final NO GROWTH AFTER 48 HOURS INCUBATION 01/13/19 13:50 Urine - Urine - Catheterized Urine Culture - Final NO GROWTH OBTAINED 01/02/19 06:30 Urine - Urine - Catheterized Yeast/Fungus Identification - Final Magali Albicans 01/02/19 11:20 Blood - Peripheral Venous Blood Culture - Final NO GROWTH AFTER 5 DAYS INCUBATION 01/02/19 11:15 Blood - Peripheral Venous Blood Culture - Final NO GROWTH AFTER 5 DAYS INCUBATION 01/02/19 06:30 Urine - Urine - Catheterized Urine Culture - Final ASSESSMENT AND PLAN: Patient is a 73 y/o female with PMHx of MS, CVA s/p L sided weakness and contraction, R nephrectomy, PNA, constipation , Seizure disorder 05/12, septic shock form UTI 11/10, who presented from home with seizure activity. #acute Exacerbation of Ms with encephalopathy continue current care as per neuro. # s/p Seizure with seizure disorder continue home meds and as per neurology cont depakote and vimpat # Encephalopathy: no improvement # Sepsis, resolved # fungal UTI : s/p treatment with fluconazole, completed the treatment as per ID # Abnormal TFTs improved. # severe protein calorie malnutrition ; cont TF , cont free water , follow TF test # hypothermia # hypernatremia improved, due to dehydration s/p IVF # hypothermia possible due to MS.resolved As per Dr. Hough , patient's daughter agreed to send the mother to [place]. SW is on the case
--- NOTE | 2019-01-22 16:28 | PN ---
Physical Exam: SUBJECTIVE: Patient seen and examined at the bedside thia AM. No acute events overnight. OBJECTIVE: Vital Signs Period Temp Pulse Resp BP Sys/Varner Pulse Ox Last 24 Hr 97.8 F-98.6 F 81-93 16-20 95-112/59-72 100 GENERAL: The patient is nonverbal and nonarousable, worse than before. NECK: supple. LUNGS: Breath sounds reduced b/l, no wheezing or crackles noted. HEART: Regular rate and rhythm, S1, S2 without murmur, rub or gallop. ABDOMEN: Soft, nontender, nondistended, normoactive bowel sounds, no guarding, no rebound. EXTREMITIES: warm, well-perfused, no edema. SKIN: sacral decub unclear but I believe it has resolved on the buttock. Laboratory Results - last 24 hr 01/22/19 06:34 Sodium 140 Potassium 4.4 Chloride 104 Carbon Dioxide 28 Anion Gap 8 BUN 18.1 H Creatinine 0.8 Est GFR (CKD-EPI)AfAm 85.97 Est GFR (CKD-EPI)NonAf 74.17 Random Glucose 240 H Calcium 9.0 TSH 1.39 Free T4 0.74 L Active Medications Generic Name Dose Route Start Last Admin Trade Name Freq PRN Reason Stop Dose Admin Amoxicillin/Clavulanate Potassium 600 mg 01/20/19 17:30 01/22/19 09:11 Augmentin 600 Mg/5 Ml Oral Suspension - PO 600 mg BID@0800,1730 KRYSTEN Administration Glycerin 1 each 01/19/19 13:27 Glycerin Suppository Adult - RC Q24H PRN CONSTIPATION Heparin Sodium (Porcine) 5,000 unit 01/17/19 22:00 01/22/19 14:22 Heparin - SQ 5,000 unit TID KRYSTEN Administration Lacosamide 200 mg 01/20/19 22:00 01/22/19 09:10 Vimpat Liquid - PEG 200 mg BID KRYSTEN Administration Thiamine HCl 200 mg 01/19/19 22:00 01/22/19 09:10 Vitamin B1 Injection - IVPB 200 mg BID KRYSTEN Administration Valproate Sodium 500 mg 01/21/19 22:00 01/22/19 09:13 Depakene - PEG 500 mg BID KRYSTEN Administration ASSESSMENT/PLAN: Patient is a 73 year old female with a past medical history of MS, CVA (2013, with left sided residual deficits, LUE contracture), R nephrectomy, presented to the ED due to seizures. Line: Rt sided cephalic vein central line in place (01/13 placement) #Seizures -Continue Vimpat 200mg BID and Valproate 500mg BID #Sepsis 2/2 UTI, resolved -ID (Dr. Rosa)- switch to augmentin through PEG day 2, 01/22 will be day 3. . - pt no longer hypothermic - barehugger PRN if temp <97. #Acute metabolic encephalopathy - LP results: CSF IEP IgG (10.4), CSF total protein (54), oligoclonal bands negative, VDRL negative, all the lyme results and west nile virus are negative. #Hypoglycemia -likely from poor oral intake -Resolved #FEN -Will continue to monitor all lytes -Keep NPO. - resuming tube feeds as per general service officer instructions and all meds will be given through PEG. #Prophylaxis -Heparin 5000u sq tid Dispo: Daughter not interested in hospice, Dr. Hough spoke to daughter, tried to contact daughter but could not reach her regarding her wishes on where she would like her mother discharged to. Visit type - Emergency Visit Emergency Visit: No - New Patient This patient is new to me today: No - Critical Care Critical Care patient: No - Discharge Referral Referred to [facility] Med P.C.: No ATTENDING PHYSICIAN STATEMENT I saw and evaluated the patient. I reviewed the resident's note and discussed the case with the resident. I agree with the resident's findings and plan as documented. SUBJECTIVE: OBJECTIVE: ASSESSMENT AND PLAN:
--- NOTE | 2019-01-22 17:05 | PN ---
Progress Note (short form) - Note Progress Note: events noted Chart reviewed Patient was seen on the floor patient with no significant neurological changes no clinical seizure patient still on the combination medication of the Vimpat and the Depakote no report of any abnormal behavior patient is not waking up patient is attentive with short attention span does not follow any commands. Had a lengthy conversation with the daughter Mimi who understands the prognosis of the patient and the current mental status condition and the very poor prognosis for any functional recovery from this patient's daughter is agreeing that the patient would benefit from [facility] placement Poor prognosis for any functional recovery Seizure precautions Continue Depakote the same Check Depakote level in 1 week Ativan when necessary seizure Problem List - Problems (1) Seizure Code(s): R56.9 - UNSPECIFIED CONVULSIONS
[2019-01-23] MEDS: HEPARIN NA (PORCINE) 5,000 UNITS/ML 1ML VIAL SQ SCH (05:35)
[2019-01-23 09:00] VITALS: TEMP 98.6
[2019-01-23] MEDS ORDERED: PT OWN MED DRAWER 7, Y5N ONE (09:46)
[2019-01-23] MEDS: VALPROATE SODIUM 250 MG/5 ML UNIT DOSE CUP PEG SCH (09:55)
[2019-01-23] MEDS: Lacosamide 50 MG/5 ML ORAL SOLUTION UNIT CUPS PEG SCH (09:55)
[2019-01-23] MEDS: AMOX TR/POTASSIUM CLAVULANATE 600 MG/5 ML PO SCH (09:56)
[2019-01-23] MEDS: THIAMINE HCL 200 MG/2 ML VIAL IVPB SCH (09:57)
--- NOTE | 2019-01-23 10:39 | DS ---
Physical Exam: SUBJECTIVE: Patient seen and examined at the bedside. no acute events overnight. Pt nonarousable today. OBJECTIVE: Vital Signs Period Temp Pulse Resp BP Sys/Varner Pulse Ox Last 24 Hr 97.7 F-98.6 F 81-94 18-20 88-129/54-86 97 PHYSICAL EXAM GENERAL: The patient is nonarousable. EYES: Leftward gaze slightly less apparent. ENT: Ears normal, nares patent, oropharynx clear without exudates, moist mucous membranes. NECK:supple. LUNGS: Breath sounds reduced b/l HEART: Regular rate and rhythm, S1, S2 without murmur, rub or gallop. ABDOMEN: Soft, nontender, nondistended, no guarding, no rebound. EXTREMITIES: no edema. PSYCH: Mental status minimal SKIN: Warm, dry, no rashes or lesions noted. LABS HOSPITAL COURSE: Date of Admission:01/02/19 This is a 73 y/o F w a PMH of MS, CVA (2013, with left sided residual deficits, LUE contracture), R nephrectomy, who was admitted for having seizures in setting of hypothermia. Patient was placed on an EEG monitor for 72 hrs with no seizure like activity. CT and MRI showed no signs of seizure like activity or intracranial hemmorhage. Pt had an LP that did not show any signs of meningitis or worsening MS. Patient was placed on depakote and vimpat to suppress any seizure like activity and was on antifunal agent due to her urine culture being positive for fungus in the past and that may have been attributing to her hypothermia. Patient did not improved in her mental status while being here and although she is medically stable, she is nonarousable and neurology does not believe her mental status will improve. She was placed in a longterm where the family will decide if they want to go with hospice care in the longterm. Date of Discharge: 01/23/19 Minutes to complete discharge: 35 Discharge Summary Reason For Visit: UTI Condition: Stable - Instructions Diet, Activity, Other Instructions: You were admitted for having seizures. While you were here we monitored your brain(EEG) and found you to not have any seizure-like activity. - We did several images of your brain (MRI, CT) did not show any mass or any bleeding. - Furthermore, we monitored your heart (telemetry) for any abnormal heart beats and you were not found to have acute heart issues that required immediate intervention. - You were treated with antibiotics for your lung infection (Aspiration PNA) and placed on anti-fungal medication for your positive urine culture for fungus. Additionally, you were evaluated by the neurologist and given anti- seizure medications to prevent further seizures. Throughout your hospital stay, your mental status did not improve, however you remained medically stable. You are being discharged to a detention facility. For your seizures take these medications: - Vimpat 200 twice daily through PEG - Depakote 500 twice daily through PEG - Ativan as needed if seizures occur Please continue your home medications as prescribed. Follow Up: - Please check depakote levels in 1 week. Please follow up with your neurologist, Dr. Hough. If you experience worsening of your current symptoms, chest pain, shortness of breath, fevers, recurrent seizures, please return to the emergency room immediately. Referrals: Mj Rosa MD [Staff Physician] - Amara Hough MD [Staff Physician] - Disposition: [facility] F[facility] - Home Medications Comprehensive Discharge Medication List: Ambulatory Orders Glycerin Suppository Adult - 1 each RC Q24H PRN supp.rect 01/23/19 Heparin - 5,000 unit SQ TID vial 01/23/19 Lacosamide Liquid [Vimpat Liquid -] 200 mg PEG BID #60 cup MDD 2 01/23/19 Valproate Sodium [Depakene -] 500 mg PEG BID cup 01/23/19 This patient is new to me today: No Emergency Visit: No Critical Care patient: No - Discharge Referral Referred to [facility] No ATTENDING PHYSICIAN STATEMENT I saw and evaluated the patient. I reviewed the resident's note and discussed the case with the resident. I agree with the resident's findings and plan as documented. SUBJECTIVE: OBJECTIVE: ASSESSMENT AND PLAN:
[2019-01-23 10:45] VITALS: BP 98/66; PULSE 85
--- NOTE | 2019-01-23 14:21 | PN ---
Teaching Attending Note Name of Resident: Prosper Hayes ATTENDING PHYSICIAN STATEMENT I saw and evaluated the patient. I reviewed the resident's note and discussed the case with the resident. I agree with the resident's findings and plan as documented. SUBJECTIVE: Patient has no new event. OBJECTIVE: Vital Signs Temperature 98.6 F 01/23/19 08:59 Pulse Rate 85 01/23/19 10:42 Respiratory Rate 18 01/23/19 10:42 Blood Pressure 98/66 01/23/19 10:42 O2 Sat by Pulse Oximetry (%) 97 01/23/19 09:00 GENERAL: The patient opens her eyes when called her name, but non verbal. HEAD: Normal with no signs of trauma. EYES: opnes when called her name . NECK: supple. LUNGS: Breath sounds equal, clear to auscultation bilaterally, no wheezes, no crackles, no accessory muscle use. HEART: Regular rate and rhythm, S1, S2 without murmur, rub or gallop. ABDOMEN: Soft, nontender, nondistended, normoactive bowel sounds, no guarding, no rebound, no hepatosplenomegaly, no masses. EXTREMITIES: 2+ pulses, warm, well-perfused, no edema. NEUROLOGICAL: non verbal. PSYCH: Non verbal , normal affect. SKIN: Warm, dry, normal turgor, no rashes noted CBCD WBC 5.7 K/mm3 (4.0-10.0) 01/19/19 06:50 RBC 3.78 M/mm3 (3.60-5.2) 01/19/19 06:50 Hgb 10.3 GM/dL (10.7-15.3) L 01/19/19 06:50 Hct 31.9 % (32.4-45.2) L 01/19/19 06:50 MCV 84.4 fl (80-96) 01/19/19 06:50 MCHC 32.4 g/dl (32.0-36.0) 01/19/19 06:50 RDW 15.7 % (11.6-15.6) H 01/19/19 06:50 Plt Count 215 K/MM3 (134-434) D 01/19/19 06:50 MPV 7.7 fl (7.5-11.1) 01/19/19 06:50 CMP Sodium 140 mmol/L (136-145) 01/22/19 06:34 Potassium 4.4 mmol/L (3.5-5.1) 01/22/19 06:34 Chloride 104 mmol/L (98-107) 01/22/19 06:34 Carbon Dioxide 28 mmol/L (21-32) 01/22/19 06:34 Anion Gap 8 MMOL/L (8-16) 01/22/19 06:34 BUN 18.1 mg/dL (7-18) H 01/22/19 06:34 Creatinine 0.8 mg/dL (0.55-1.3) 01/22/19 06:34 Random Glucose 240 mg/dL (74-106) H 01/22/19 06:34 Calcium 9.0 mg/dL (8.5-10.1) 01/22/19 06:34 Total Bilirubin 0.2 mg/dL (0.2-1) 01/19/19 06:50 AST 23 U/L (15-37) 01/19/19 06:50 ALT 6 U/L (13-61) L 01/19/19 06:50 Alkaline Phosphatase 64 U/L (45-117) 01/19/19 06:50 Total Protein 6.0 g/dl (6.4-8.2) L 01/19/19 06:50 Albumin 1.9 g/dl (3.4-5.0) L 01/19/19 06:50 CARDIAC ENZYMES Creatine Kinase 166 U/L (26-192) 01/02/19 03:40 Troponin I < 0.02 ng/ml (0.00-0.05) 01/02/19 03:40 Home Medications Medication Instructions Recorded Glycerin Suppository Adult - 1 each RC Q24H PRN supp.rect 01/23/19 Heparin - 5,000 unit SQ TID vial 01/23/19 Lacosamide Liquid [Vimpat Liquid -] 200 mg PEG BID #60 cup MDD 2 01/23/19 Valproate Sodium [Depakene -] 500 mg PEG BID cup 01/23/19 Microbiology 01/22/19 10:07 Blood - Peripheral Venous Blood Culture - Preliminary NO GROWTH OBTAINED AFTER 24 HOURS, INCUBATION TO CONTINUE FOR 4 DAYS. 01/22/19 09:48 Blood - Peripheral Venous Blood Culture - Preliminary NO GROWTH OBTAINED AFTER 24 HOURS, INCUBATION TO CONTINUE FOR 4 DAYS. 01/13/19 13:25 Blood - Peripheral Venous Blood Culture - Final NO GROWTH AFTER 5 DAYS INCUBATION 01/13/19 13:30 Blood - Peripheral Venous Blood Culture - Final NO GROWTH AFTER 5 DAYS INCUBATION 01/13/19 16:15 Cerebral Spinal Fluid - Lumbar Puncture Gram Stain - Final 01/13/19 16:15 Cerebral Spinal Fluid - Lumbar Puncture CSF Culture - Final NO GROWTH AFTER 48 HOURS INCUBATION 01/13/19 13:50 Urine - Urine - Catheterized Urine Culture - Final NO GROWTH OBTAINED 01/02/19 06:30 Urine - Urine - Catheterized Yeast/Fungus Identification - Final Magali Albicans 01/02/19 11:20 Blood - Peripheral Venous Blood Culture - Final NO GROWTH AFTER 5 DAYS INCUBATION 01/02/19 11:15 Blood - Peripheral Venous Blood Culture - Final NO GROWTH AFTER 5 DAYS INCUBATION 01/02/19 06:30 Urine - Urine - Catheterized Urine Culture - Final Yeast Like Organism ASSESSMENT AND PLAN: Patient is a 73 y/o female with PMHx of MS, CVA s/p L sided weakness and contraction, R nephrectomy, PNA, constipation , Seizure disorder 05/12, septic shock form UTI 11/10, who presented from home with seizure activity. #acute Exacerbation of Ms with encephalopathy continue current care as per neuro. patient has no improvement , will discharge her to rehab. patient's daughter is aware and agrees to go to rehab. Neurology discussed with the daughter to go to rehab. # s/p Seizure with seizure disorder continue home meds and as per neurology cont depakote and vimpat # Encephalopathy: no improvement # Sepsis, resolved # fungal UTI : s/p treatment with fluconazole completed as per ID # Abnormal TFTs. # severe protein calorie malnutrition ; cont TF , cont free water , follow TF test # hypothermia # hypernatremia.improved s/p IVF , dehydration # hypothermia possible due to MS. resolved As per Dr. Hough , patient's daughter agreed to send the mother to [place]. SW is on the case
== END 2019-01-23 11:51 | DRG 871 ==
LOC: JER 02:40 → JERBED 07:37 → J5S 09:03 → JICU 13:34 → J4S 01-05 23:54 → J8W 01-19 13:07
PROVIDERS: ADMIT Internal Medicine; ATTEND Internal Medicine
PROC: 05HM33Z Insertion of Infusion Device into Right Internal Jugular Vein, Percutaneous Approach (ICD-10-PCS; principal; 2019-01-02)
PROC: B513ZZA Fluoroscopy of Right Jugular Veins, Guidance (ICD-10-PCS; 2019-01-02)
PROC: B543ZZA Ultrasonography of Right Jugular Veins, Guidance (ICD-10-PCS; 2019-01-02)
PROC: 009U3ZX Drainage of Spinal Canal, Percutaneous Approach, Diagnostic (ICD-10-PCS; 2019-01-13)
PROC: 0DH63UZ Insertion of Feeding Device into Stomach, Percutaneous Approach (ICD-10-PCS; 2019-01-17)
DX: A41.9 Sepsis, unspecified organism (principal); E43 Unspecified severe protein-calorie malnutrition; B37.49 Other urogenital candidiasis; R64 Cachexia; Z68.1 Body mass index [BMI] 19.9 or less, adult; E87.0 Hyperosmolality and hypernatremia; I69.354 Hemiplegia and hemiparesis following cerebral infarction affecting left non-dominant side; G93.40 Encephalopathy, unspecified; R56.9 Unspecified convulsions; G35 Multiple sclerosis; R62.7 Adult failure to thrive; E16.2 Hypoglycemia, unspecified; E86.0 Dehydration; M62.422 Contracture of muscle, left upper arm; Z90.5 Acquired absence of kidney; I25.10 Atherosclerotic heart disease of native coronary artery without angina pectoris; F03.90 Unspecified dementia, unspecified severity, without behavioral disturbance, psychotic disturbance, mood disturbance, and anxiety; R68.0 Hypothermia, not associated with low environmental temperature; K59.00 Constipation, unspecified; E07.81 Sick-euthyroid syndrome; M62.59 Muscle wasting and atrophy, not elsewhere classified, multiple sites
CPT/HCPCS: 36415; 36600; 49440; 62272; 70450-TC; 70551-TC; 70552-TC; 71045-TC-FY; 74150-TC; 76000-TC-FY; 76098-TC-FY; 80048; 80053; 80164; 80177; 81003; 82140; 82533; 82550; 82553; 82607; 82784; 82787; 82803; 82945; 82962; 83605; 83735; 83916; 84100; 84146; 84157; 84295; 84439; 84443; 84480; 84481; 84484; 85025; 85610; 85730; 86592; 86617; 86788; 86789; 87040; 87070; 87086; 87106; 87205; 87476; 87899; 93005; 93010; 95816; 95951; 97161-GP; 99284-25; A9579; J1644

== ENCOUNTER 2019-01-30 20:09 | Inpatient (IN) | payer OTHER | END 2019-02-04 04:45 | disposition E | LOC: JER 20:09 → J4S 01-31 15:38 → JERBED 22:06 ==